=== PATIENT | male | born 1980 | race Caucasian/White ===

== ENCOUNTER 2016-12-22 10:05 | Inpatient (IN) | payer OTHER ==
--- NOTE | 2016-12-22 10:50 | Emergency Department Report ---
Entered by KRISS BENITEZ, acting as scribe for MARAH SINGH PA. Chief Complaint: Weakness Stated Complaint: POSS STROKE Time Seen by Provider: 12/22/16 10:15 - HPI History of Present Illness: Pt c/o weakness and loss of feeling in left arm and leg. Reports difficulty speaking and remembering things. Pt's family believes he had a stroke. Ambulatory with a cane for 2 months. Denies any pain. Denies headache Reports bilateral vision changes. Reports slurred speech. PMHx of HIV Pt reports that he was treated 1 month ago for a insect bite and skin infection. He was prescribed antibiotics and pain medication. - ROS Review of Systems: All systems are negative unless stated in HPI above. - Exam Vital Signs: Vital Signs 12/22/16 10:10 Temperature 97.6 F Pulse Rate 86 Respiratory 18 Rate Blood Pressure 104/65 O2 Sat by Pulse 100 Oximetry Physical Exam: General: well nourished, well developed, and nontoxic in appearance Neurologic: Alert, awake. Not oriented to place or time, but oriented to his name. patient's grandmother is mig tig welder. Unsteady abnormal gait. patient has decreased strength in left upper and lower extremeties. MSE screening note: Focused history and physical exam performed. Due to findings the following was ordered: ED Medical Decision Making - Radiology Data Radiology results: pending - Medical Decision Making Patient seen by provider in triage area. Patient has bloodwork and imaging studies pending. patient will be sent to Main side for further evaluation. ED Disposition for MSE Condition: Stable This documentation as recorded by the scribe,KRISS BENITEZ,accurately reflects the service I personally performed and the decisions made by ,MARAH SINGH PA.
[2016-12-22 10:53] LABS: Basophils % (Auto) 0.1 % (0.0-1.8); Eosinophils % (Auto) 2.4 % (0.0-4.3); Hematocrit 40.7 % (30.3-42.9); Hemoglobin 13.2 gm/dl (10.1-14.3); Mean Corpuscular HGB Conc 33 % (30-34); Mean Corpuscular Hemoglobin 29 pg (28-32); Mean Corpuscular Volume 90 fl (79-97); Platelet Count 250 K/mm3 (140-440); Red Blood Count 4.53 M/mm3 (3.65-5.03); Red Cell Distribution Width 17.1 % (13.2-15.2); White Blood Count 4.3 K/mm3 (4.5-11.0)
--- NOTE | 2016-12-22 11:12 | XRay Report ---
AP CHEST: Generalized weakness; mentation changes. AP view of the chest demonstrates a normal mediastinal and cardiac contour with clear lungs and normal bony and soft tissue structures. IMPRESSION: Normal AP chest.
[2016-12-22 11:22] LABS: Anion Gap 13 mmol/L; BUN/Creatinine Ratio 13.33; Blood Urea Nitrogen 8 mg/dL (9-20); Calcium 7.7 mg/dL (8.4-10.2); Carbon Dioxide 25 mmol/L (22-30); Chloride 101.9 mmol/L (98-107); Glucose 91 mg/dL (75-100); Lactate Dehydrogenase 203 units/L (91-180); Potassium 3.9 mmol/L (3.6-5.0); Sodium 136 mmol/L (137-145)
--- NOTE | 2016-12-22 11:37 | Cat Scan Report ---
CT scan of head without contrast: No previous studies available. History: Weakness. Findings: Ventricles are normal in size and midline in location. Ill-defined focal area of low attenuation at the right temporoparietal region is suggestive of subacute to chronic ischemia. Normal brainstem and cerebellum. Normal sinuses and mastoid air cells. No extra-axial fluid collection. Impression: Subacute to chronic ischemia right temporoparietal region. If clinically indicated an MRI scan may be advised.
[2016-12-22] MEDS ORDERED: NACL 0.9% 1000 ML 1,000 ML IV ONE (18:23)
--- NOTE | 2016-12-22 18:34 | Emergency Department Report ---
ED Neuro Deficit HPI - General Chief Complaint: Weakness Stated Complaint: POSS STROKE Time Seen by Provider: 12/22/16 18:18 Source: patient, family Mode of arrival: Ambulatory Limitations: Language Barrier, Physical Limitation - History of Present Illness Initial Comments: Patient is a 36-year-old male with history of HIV presented today because of left upper and left lower extremity weakness and numbness. Patient states that he thinks he may have had a bug bite on his left neck couple months ago which has not resolved and he has been on multiple courses of antibiotics most recently started on doxycycline. He is also notes her last 2 months that he is progressively slowly developed weakness to his left upper and left lower extremity including numbness. He is able to ambulate but with the help of a cane. He also has a facial droop on the left side. This also complaining about changes in his vision. Denies any fevers or chills. - Related Data Home Medications: Home Medications Medication Instructions Recorded Confirmed Last Taken Darunavir/Cobicistat (Nf) 1 tab PO DAILY 12/22/16 12/22/16 12/22/16 [Prezcobix 800 mg-150 mg (Nf)] Doxycycline [Vibramycin] 100 mg PO Q12HR 12/22/16 12/22/16 12/22/16 Emtricitab/Rilpiviri/Tenof Ala 1 each PO DAILY 12/22/16 12/22/16 12/22/16 [Odefsey Tablet] Allergies/Adverse Reactions: Allergies Allergy/AdvReac Type Severity Reaction Status Date / Time No Known Allergies Allergy Unverified 12/22/16 10:09 ED Review of Systems ROS: Stated complaint: POSS STROKE Other details as noted in HPI Comment: All other systems reviewed and negative Constitutional: denies: chills, fever Eyes: vision change Respiratory: denies: cough Cardiovascular: denies: chest pain Gastrointestinal: denies: nausea, vomiting Genitourinary: denies: dysuria Skin: denies: rash Psychiatric: denies: anxiety ED Past Medical Hx - Past Medical History Previous Medical History?: Yes Additional medical history: Boil - Surgical History Past Surgical History?: No - Social History Smoking Status: Current Every Day Smoker Substance Use Type: Prescribed - Medications Home Medications: Home Medications Medication Instructions Recorded Confirmed Last Taken Type Darunavir/Cobicistat (Nf) 1 tab PO DAILY 12/22/16 12/22/16 12/22/16 History [Prezcobix 800 mg-150 mg (Nf)] Doxycycline [Vibramycin] 100 mg PO Q12HR 12/22/16 12/22/16 12/22/16 History Emtricitab/Rilpiviri/Tenof [place] 1 each PO DAILY 12/22/16 12/22/16 12/22/16 History [Odefsey Tablet] ED Neuro Physical Exam - General Limitations: Language Barrier, Physical Limitation General appearance: alert Suspected Stroke: Yes - Head Head exam: Present: atraumatic - Eye Eye exam: Present: PERRL, EOMI - Neck Neck exam: Present: other (multiple erythematous lesions on the left lower neck , no purulent discharge,) - Respiratory Respiratory exam: Present: normal lung sounds bilaterally. Absent: respiratory distress, wheezes - Cardiovascular Cardiovascular Exam: Present: regular rate, normal rhythm - GI/Abdominal GI/Abdominal exam: Present: soft. Absent: distended, tenderness - Neurological Exam Neurological exam: Present: alert - NIHSS Assessment Interval: Baseline 1a. Level of Consciousness: alert 1b. LOC Questions: answers correctly 1c. LOC Commands: performs tasks correctly 2. Best Gaze: normal 3. Visual: partial hemianopia 4. Facial Palsy: complete paralysis 5b. Motor Arm Right: no drift 5a. Motor Arm Left: some gravity effort 6a. Motor Leg Left: no gravity effort 6b. Motor Leg Right: no drift 7. Limb Ataxia: absent 8. Sensory: normal 9. Best Language: no aphasia 10. Dysarthria: normal 11. Extinction/Inattention: visual/tactile inattention Total Score: 10 Stroke Severity: Moderate Stroke - Psychiatric Psychiatric exam: Present: normal affect - Skin Skin exam: Present: other (multiple lesions over left neck) ED Course Vital Signs 12/22/16 12/22/16 12/22/16 10:10 19:37 20:54 Temperature 97.6 F 98.0 F Pulse Rate 86 73 Respiratory 18 20 20 Rate Blood Pressure 104/65 Blood Pressure 95/63 [Left] O2 Sat by Pulse 100 99 99 Oximetry - Lab Data Result diagrams: 12/22/16 10:43 12/22/16 10:43 Lab Results 12/22/16 12/22/16 12/22/16 Range/Units 10:43 10:43 10:43 WBC 4.3 L (4.5-11.0) K/mm3 RBC 4.53 (3.65-5.03) M/mm3 Hgb 13.2 (10.1-14.3) gm/dl Hct 40.7 (30.3-42.9) % MCV 90 (79-97) fl MCH 29 (28-32) pg MCHC 33 (30-34) % RDW 17.1 H (13.2-15.2) % Plt Count 250 (140-440) K/mm3 Lymph % (Auto) 16.5 (13.4-35.0) % [place] % (Auto) 7.7 H (0.0-7.3) % Eos % (Auto) 2.4 (0.0-4.3) % Baso % (Auto) 0.1 (0.0-1.8) % Lymph # 0.7 L (1.2-5.4) K/mm3 [place] # 0.3 (0.0-0.8) K/mm3 Eos # 0.1 (0.0-0.4) K/mm3 Baso # 0.0 (0.0-0.1) K/mm3 Seg Neutrophils % 73.3 H (40.0-70.0) % Seg Neutrophils # 3.2 (1.8-7.7) K/mm3 PT (12.2-14.9) Sec. INR (0.87-1.13) APTT (24.2-36.6) Sec. Sodium 136 L (137-145) mmol/L Potassium 3.9 (3.6-5.0) mmol/L Chloride 101.9 (98-107) mmol/L Carbon Dioxide 25 (22-30) mmol/L Anion Gap 13 mmol/L BUN 8 L (9-20) mg/dL Creatinine 0.6 L (0.8-1.5) mg/dL Estimated GFR > 60 ml/min BUN/Creatinine Ratio 13.33 % Glucose 91 (75-100) mg/dL Lactic Acid (0.7-2.0) mmol/L Calcium 7.7 L (8.4-10.2) mg/dL Magnesium 1.80 (1.7-2.3) mg/dL Total Bilirubin (0.1-1.2) mg/dL Direct Bilirubin (0-0.2) mg/dL Indirect Bilirubin mg/dL AST (5-40) units/L ALT (7-56) units/L Alkaline Phosphatase (35-129) units/L Lactate Dehydrogenase 203 H (91-180) units/L Troponin T < 0.010 (0.00-0.029) ng/mL Total Protein (6.3-8.2) g/dL Albumin (3.9-5) g/dL Albumin/Globulin Ratio % Urine Color (Yellow) Urine Turbidity (Clear) Urine pH (5.0-7.0) Ur Specific [place] (1.003-1.030) Urine Protein (Negative) mg/dL Urine Glucose (UA) (Negative) mg/dL Urine Ketones (Negative) mg/dL Urine Blood (Negative) Urine Nitrite (Negative) Urine Bilirubin (Negative) Urine Urobilinogen (<2.0) mg/dL Ur Leukocyte Esterase (Negative) Urine WBC (Auto) (0.0-6.0) /HPF Urine RBC (Auto) (0.0-6.0) /HPF U Epithel Cells (Auto) (0-13.0) /HPF Urine Mucus /HPF Urine Opiates Screen Urine Methadone Screen Ur Barbiturates Screen Ur Phencyclidine Scrn Ur Amphetamines Screen U Benzodiazepines Scrn Urine Cocaine Screen U Marijuana (THC) Screen Drugs of Abuse Note Plasma/Serum Alcohol < 0.01 (0-0.07) gm% Blood Type Antibody Screen KAREN Antibody Screen 12/22/16 12/22/16 12/22/16 Range/Units 18:53 18:53 18:53 WBC (4.5-11.0) K/mm3 RBC (3.65-5.03) M/mm3 Hgb (10.1-14.3) gm/dl Hct (30.3-42.9) % MCV (79-97) fl MCH (28-32) pg MCHC (30-34) % RDW (13.2-15.2) % Plt Count (140-440) K/mm3 Lymph % (Auto) (13.4-35.0) % [place] % (Auto) (0.0-7.3) % Eos % (Auto) (0.0-4.3) % Baso % (Auto) (0.0-1.8) % Lymph # (1.2-5.4) K/mm3 [place] # (0.0-0.8) K/mm3 Eos # (0.0-0.4) K/mm3 Baso # (0.0-0.1) K/mm3 Seg Neutrophils % (40.0-70.0) % Seg Neutrophils # (1.8-7.7) K/mm3 PT 13.7 (12.2-14.9) Sec. INR 1.06 (0.87-1.13) APTT 30.5 (24.2-36.6) Sec. Sodium (137-145) mmol/L Potassium (3.6-5.0) mmol/L Chloride (98-107) mmol/L Carbon Dioxide (22-30) mmol/L Anion Gap mmol/L BUN (9-20) mg/dL Creatinine (0.8-1.5) mg/dL Estimated GFR ml/min BUN/Creatinine Ratio % Glucose (75-100) mg/dL Lactic Acid 0.90 (0.7-2.0) mmol/L Calcium (8.4-10.2) mg/dL Magnesium (1.7-2.3) mg/dL Total Bilirubin (0.1-1.2) mg/dL Direct Bilirubin (0-0.2) mg/dL Indirect Bilirubin mg/dL AST (5-40) units/L ALT (7-56) units/L Alkaline Phosphatase (35-129) units/L Lactate Dehydrogenase (91-180) units/L Troponin T (0.00-0.029) ng/mL Total Protein (6.3-8.2) g/dL Albumin (3.9-5) g/dL Albumin/Globulin Ratio % Urine Color (Yellow) Urine Turbidity (Clear) Urine pH (5.0-7.0) Ur Specific [place] (1.003-1.030) Urine Protein (Negative) mg/dL Urine Glucose (UA) (Negative) mg/dL Urine Ketones (Negative) mg/dL Urine Blood (Negative) Urine Nitrite (Negative) Urine Bilirubin (Negative) Urine Urobilinogen (<2.0) mg/dL Ur Leukocyte Esterase (Negative) Urine WBC (Auto) (0.0-6.0) /HPF Urine RBC (Auto) (0.0-6.0) /HPF U Epithel Cells (Auto) (0-13.0) /HPF Urine Mucus /HPF Urine Opiates Screen Urine Methadone Screen Ur Barbiturates Screen Ur Phencyclidine Scrn Ur Amphetamines Screen U Benzodiazepines Scrn Urine Cocaine Screen U Marijuana (THC) Screen Drugs of Abuse Note Plasma/Serum Alcohol (0-0.07) gm% Blood Type A POSITIVE Antibody Screen TNR KAREN Antibody Screen Negative 12/22/16 12/22/16 12/22/16 Range/Units 18:53 18:53 22:39 WBC (4.5-11.0) K/mm3 RBC (3.65-5.03) M/mm3 Hgb (10.1-14.3) gm/dl Hct (30.3-42.9) % MCV (79-97) fl MCH (28-32) pg MCHC (30-34) % RDW (13.2-15.2) % Plt Count (140-440) K/mm3 Lymph % (Auto) (13.4-35.0) % [place] % (Auto) (0.0-7.3) % Eos % (Auto) (0.0-4.3) % Baso % (Auto) (0.0-1.8) % Lymph # (1.2-5.4) K/mm3 [place] # (0.0-0.8) K/mm3 Eos # (0.0-0.4) K/mm3 Baso # (0.0-0.1) K/mm3 Seg Neutrophils % (40.0-70.0) % Seg Neutrophils # (1.8-7.7) K/mm3 PT (12.2-14.9) Sec. INR (0.87-1.13) APTT (24.2-36.6) Sec. Sodium (137-145) mmol/L Potassium (3.6-5.0) mmol/L Chloride (98-107) mmol/L Carbon Dioxide (22-30) mmol/L Anion Gap mmol/L BUN (9-20) mg/dL Creatinine (0.8-1.5) mg/dL Estimated GFR ml/min BUN/Creatinine Ratio % Glucose (75-100) mg/dL Lactic Acid (0.7-2.0) mmol/L Calcium (8.4-10.2) mg/dL Magnesium (1.7-2.3) mg/dL Total Bilirubin 0.20 (0.1-1.2) mg/dL Direct Bilirubin < 0.2 (0-0.2) mg/dL Indirect Bilirubin 0.0 mg/dL AST 33 (5-40) units/L ALT 33 (7-56) units/L Alkaline Phosphatase 91 (35-129) units/L Lactate Dehydrogenase (91-180) units/L Troponin T < 0.010 (0.00-0.029) ng/mL Total Protein 4.4 L (6.3-8.2) g/dL Albumin 1.9 L (3.9-5) g/dL Albumin/Globulin Ratio 0.8 % Urine Color Yellow (Yellow) Urine Turbidity Clear (Clear) Urine pH 6.0 (5.0-7.0) Ur Specific [place] 1.020 (1.003-1.030) Urine Protein <15 mg/dl (Negative) mg/dL Urine Glucose (UA) Neg (Negative) mg/dL Urine Ketones Neg (Negative) mg/dL Urine Blood Neg (Negative) Urine Nitrite Neg (Negative) Urine Bilirubin Neg (Negative) Urine Urobilinogen < 2.0 (<2.0) mg/dL Ur Leukocyte Esterase Neg (Negative) Urine WBC (Auto) 2.0 (0.0-6.0) /HPF Urine RBC (Auto) 1.0 (0.0-6.0) /HPF U Epithel Cells (Auto) < 1.0 (0-13.0) /HPF Urine Mucus Few /HPF Urine Opiates Screen Urine Methadone Screen Ur Barbiturates Screen Ur Phencyclidine Scrn Ur Amphetamines Screen U Benzodiazepines Scrn Urine Cocaine Screen U Marijuana (THC) Screen Drugs of Abuse Note Plasma/Serum Alcohol (0-0.07) gm% Blood Type Antibody Screen KAREN Antibody Screen 12/22/16 Range/Units 22:39 WBC (4.5-11.0) K/mm3 RBC (3.65-5.03) M/mm3 Hgb (10.1-14.3) gm/dl Hct (30.3-42.9) % MCV (79-97) fl MCH (28-32) pg MCHC (30-34) % RDW (13.2-15.2) % Plt Count (140-440) K/mm3 Lymph % (Auto) (13.4-35.0) % [place] % (Auto) (0.0-7.3) % Eos % (Auto) (0.0-4.3) % Baso % (Auto) (0.0-1.8) % Lymph # (1.2-5.4) K/mm3 [place] # (0.0-0.8) K/mm3 Eos # (0.0-0.4) K/mm3 Baso # (0.0-0.1) K/mm3 Seg Neutrophils % (40.0-70.0) % Seg Neutrophils # (1.8-7.7) K/mm3 PT (12.2-14.9) Sec. INR (0.87-1.13) APTT (24.2-36.6) Sec. Sodium (137-145) mmol/L Potassium (3.6-5.0) mmol/L Chloride (98-107) mmol/L Carbon Dioxide (22-30) mmol/L Anion Gap mmol/L BUN (9-20) mg/dL Creatinine (0.8-1.5) mg/dL Estimated GFR ml/min BUN/Creatinine Ratio % Glucose (75-100) mg/dL Lactic Acid (0.7-2.0) mmol/L Calcium (8.4-10.2) mg/dL Magnesium (1.7-2.3) mg/dL Total Bilirubin (0.1-1.2) mg/dL Direct Bilirubin (0-0.2) mg/dL Indirect Bilirubin mg/dL AST (5-40) units/L ALT (7-56) units/L Alkaline Phosphatase (35-129) units/L Lactate Dehydrogenase (91-180) units/L Troponin T (0.00-0.029) ng/mL Total Protein (6.3-8.2) g/dL Albumin (3.9-5) g/dL Albumin/Globulin Ratio % Urine Color (Yellow) Urine Turbidity (Clear) Urine pH (5.0-7.0) Ur Specific [place] (1.003-1.030) Urine Protein (Negative) mg/dL Urine Glucose (UA) (Negative) mg/dL Urine Ketones (Negative) mg/dL Urine Blood (Negative) Urine Nitrite (Negative) Urine Bilirubin (Negative) Urine Urobilinogen (<2.0) mg/dL Ur Leukocyte Esterase (Negative) Urine WBC (Auto) (0.0-6.0) /HPF Urine RBC (Auto) (0.0-6.0) /HPF U Epithel Cells (Auto) (0-13.0) /HPF Urine Mucus /HPF Urine Opiates Screen Presumptive negative Urine Methadone Screen Presumptive negative Ur Barbiturates Screen Presumptive negative Ur Phencyclidine Scrn Presumptive negative Ur Amphetamines Screen Presumptive negative U Benzodiazepines Scrn Presumptive negative Urine Cocaine Screen Presumptive negative U Marijuana (THC) Screen Presumptive negative Drugs of Abuse Note Disclamer Plasma/Serum Alcohol (0-0.07) gm% Blood Type Antibody Screen KAREN Antibody Screen - Medical Decision Making IV, labs, CT head CT head shows cva, not acute, does not meet criteria for thrombolytics CTA head and neck also initially ordered but CT scanner able to do CTA is down will admit at this time for cva Patient is also hiv positive but states he has been consistently taking his HAART medication which he has with him. aspirin ordered will admit for cva Critical care attestation.: If time is entered above; I have spent that time in minutes in the direct care of this critically ill patient, excluding procedure time. ED Disposition Clinical Impression: CVA (cerebral vascular accident) Qualifiers: CVA mechanism: unspecified Qualified Code(s): I63.9 - Cerebral infarction, unspecified Disposition: OP ADMITTED IP TO THIS HOSP Is pt being admited?: Yes Does the pt Need Aspirin: No Condition: Serious
[2016-12-22 19:30] LABS: INR 1.06 (0.87-1.13)
[2016-12-22 19:31] LABS: Partial Thromboplastin Time 30.5 Sec. (24.2-36.6)
[2016-12-22 20:01] LABS: Alanine Aminotransferase 33 units/L (7-56); Albumin 1.9 g/dL (3.9-5); Albumin/Globulin Ratio 0.8 %; Alkaline Phosphatase 91 units/L (35-129); Total Protein 4.4 g/dL (6.3-8.2)
[2016-12-22 20:27] LABS: Bilirubin,Direct < 0.2 mg/dL (0-0.2)
[2016-12-22] MEDS ORDERED: BABY ASPIRIN PO ONE (20:42)
--- NOTE | 2016-12-22 21:35 | History and Physical Report ---
History of Present Illness Chief complaint: I feel weak History of present illness: 36 YO Male with HIV, Nicotine Dependence presents to ED for evaluation. Pt states that he has been experiencing weakness and numbness to his left side. Pt symptoms started about 2 month ago and have gotten progressively worse over the past week. Patient denies fever, chills, CP, palpitations, NVD, unintentional weight loss, night sweats, BRBPR, Hemoptysis, vertigo, trauma, or recent ill contacts. Past History Past Medical History: other (HIV, Nicotine Dependence) Past Surgical History: No surgical history, Other (reviewed) Social history: single, smoking. denies: alcohol abuse, prescription drug abuse , IV drug use Family history: hypertension Medications and Allergies Allergies Allergy/AdvReac Type Severity Reaction Status Date / Time No Known Allergies Allergy Unverified 12/22/16 10:09 Home Medications Medication Instructions Recorded Confirmed Last Taken Type Darunavir/Cobicistat (Nf) 1 tab PO DAILY 12/22/16 12/22/16 12/22/16 History [Prezcobix 800 mg-150 mg (Nf)] Doxycycline [Vibramycin] 100 mg PO Q12HR 12/22/16 12/22/16 12/22/16 History Emtricitab/Rilpiviri/Tenof Ala 1 each PO DAILY 12/22/16 12/22/16 12/22/16 History [Odefsey Tablet] Review of Systems All systems: negative Constitutional: weakness Exam - Constitutional Vitals: Temp Pulse Resp BP Pulse Ox 98.0 F 73 20 95/63 99 12/22/16 20:54 12/22/16 20:54 12/22/16 20:54 12/22/16 20:54 12/22/16 20:54 General appearance: Present: no acute distress, well-nourished - EENT Eyes: Present: PERRL ENT: hearing intact, clear oral mucosa - Neck Neck: Present: supple, normal ROM - Respiratory Respiratory effort: normal Respiratory: bilateral: CTA - Cardiovascular Heart Sounds: Present: S1 & S2. Absent: rub, click - Extremities Extremities: pulses symmetrical, No edema Peripheral Pulses: within normal limits - Abdominal General gastrointestinal: Present: soft, non-tender, non-distended, normal bowel sounds Male genitourinary: Present: normal - Integumentary Integumentary: Present: clear, warm, dry - Musculoskeletal Musculoskeletal: left sided weakness - Psychiatric Psychiatric: appropriate mood/affect, intact judgment & insight - Neurologic Neurologic: CNII-XII intact, moves all extremities Results - Labs CBC & Chem 7: 12/22/16 10:43 12/22/16 10:43 Labs: Abnormal lab results 12/22/16 12/22/16 12/22/16 Range/Units 10:43 10:43 18:53 WBC 4.3 L (4.5-11.0) K/mm3 RDW 17.1 H (13.2-15.2) % [place] % (Auto) 7.7 H (0.0-7.3) % Lymph # 0.7 L (1.2-5.4) K/mm3 Seg Neutrophils % 73.3 H (40.0-70.0) % Sodium 136 L (137-145) mmol/L BUN 8 L (9-20) mg/dL Creatinine 0.6 L (0.8-1.5) mg/dL Calcium 7.7 L (8.4-10.2) mg/dL Lactate Dehydrogenase 203 H (91-180) units/L Total Protein 4.4 L (6.3-8.2) g/dL Albumin 1.9 L (3.9-5) g/dL Assessment and Plan - Patient Problems (1) CVA (cerebral vascular accident) Current Visit: Yes Status: Acute Qualifiers: CVA mechanism: unspecified Precerebral and cerebral artery: P Laterality of affected vessel: L Qualified Code(s): I63.9 - Cerebral infarction, unspecified Plan to address problem: Stroke Protocol: MRI/MRA, Carotid Doppler, Echo, antiplatelet therapy, PT/OT/ Speech Therapy (2) HIV (human immunodeficiency virus infection) Current Visit: Yes Status: Acute Plan to address problem: continue current medication. (3) Nicotine dependence Current Visit: Yes Status: Acute Qualifiers: Nicotine product type: N Substance use status: S Plan to address problem: Pt counseled, Pt refused to pick quit date (4) DVT prophylaxis Current Visit: Yes Status: Acute
--- NOTE | 2016-12-22 21:35 | Admit Criteria Form ---
Admission Criteria Documentation: STROKE: ISCHEMIC Clinical Indications for Admission to Inpatient Care (Place 'X' for any and all applicable criteria): Admission is indicated for ANY ONE of the following(1)(2)(3)(4): [ X]I. Acute stroke Extended stay beyond goal length of stay may be needed for(1)(2) [ ]a) Major deficit or clinical deterioration [ ]b) Hospital-acquired infection (eg, urinary tract infection, pneumonia) [ ]c) Embolic cause of stroke [ ]d) Venous thromboembolism(9) [ ]e) Seizures [ ]f) Bleeding (eg, cerebral) [ ]g) Increased intracranial pressure [ ]h) Comorbidities [ ]i) Surgical intervention The original [facility] content created by [employer] has been revised. The portions of the content which have been revised are identified through the use of italic text or in bold, and [facility] has neither reviewed nor approved the modified material. All other unmodified content is copyright [facility]. Please see references footnoted in the original [facility] edition 2016 Admission Criteria Met: Yes
[2016-12-22] MEDS ORDERED: TYLENOL PO PRN (22:54)
[2016-12-22] MEDS ORDERED: PHENERGAN PR PRN (22:54)
[2016-12-22] MEDS ORDERED: DUONEB 0.5 MG-3 MG/3 ML SOLN IH PRN (22:54)
[2016-12-22] MEDS ORDERED: ZOFRAN IV PRN (22:54)
[2016-12-22] MEDS ORDERED: SODIUM CHLORIDE FLUSH SYRINGE 10 ML IV PRN (22:54)
[2016-12-22] MEDS ORDERED: REGLAN PO PRN (22:54)
[2016-12-22] MEDS ORDERED: DULCOLAX PR PRN (22:54)
[2016-12-22] MEDS ORDERED: MILK OF MAGNESIA PO PRN (22:54)
[2016-12-22 23:02] LABS: Urine Drugs of Abuse Note Disclamer
[2016-12-22 23:17] LABS: Bilirubin,Urine NEG (Negative); Blood,Urine NEG (Negative); Ketones,Urine NEG (Negative); Leukocyte Esterase,Urine NEG (Negative); Mucus,Urine FEW /HPF; Nitrite,Urine NEG (Negative); Protein,Urine <15 mg/dL mg/dL (Negative); Urobilinogen,Urine < 2.0 mg/dL (<2.0)
[2016-12-22] MEDS ORDERED: PROVENTIL IH PRN (23:25)
[2016-12-23] MEDS: VIBRAMYCIN PO SCH ×2 (10:40→22:21)
[2016-12-23] MEDS: PLAVIX PO SCH (10:40)
--- NOTE | 2016-12-23 20:13 | Progress Note ---
Assessment and Plan Assessment and plan: 36 years old male with HIV nicotine dependence admitted for left-sided weakness that worsened over the last [address] head showing subacute to chronic ischemia right temporoparietal area Echocardiogram with normal LV function and no intracardiac shunt Carotid Doppler and brain MRI pending Started on antiplatelet therapy and statin PT/OT/ST 2. HIV Continue antiretrovirals 3. Nicotine dependence Counseled regarding importance of quitting smoking but not willing to do it at this time 4. DVT prophylaxis History Interval history: seems confused, but answering appropriately simple questions c/o weakness Hospitalist Physical - Constitutional Vitals: Temp Pulse Resp BP Pulse Ox 98.4 F 75 18 90/54 96 12/23/16 17:14 12/23/16 17:14 12/23/16 17:14 12/23/16 17:14 12/23/16 17:14 General appearance: Present: no acute distress, other (thin, chronically ill- appearing) - EENT Eyes: Present: PERRL, EOM intact. Absent: scleral icterus, conjunctival injection - Neck Neck: Present: supple. Absent: masses or JVD, carotid bruits - Respiratory Respiratory effort: normal Respiratory: bilateral: CTA, negative: rales, rhonchi, wheezing - Cardiovascular Rhythm: regular Heart Sounds: Present: S1 & S2. Absent: systolic murmur - Extremities Extremities: no ischemia - Abdominal General gastrointestinal: soft, non-tender, non-distended, normal bowel sounds - Psychiatric Psychiatric: no intact judgment & insight, no memory intact - Neurologic Neurologic: other (left hemiparesis, L hemineglect) Results - Labs CBC & Chem 7: 12/22/16 10:43 12/22/16 10:43 Labs: Laboratory Last Values WBC 4.3 K/mm3 (4.5-11.0) L 12/22/16 10:43 RBC 4.53 M/mm3 (3.65-5.03) 12/22/16 10:43 Hgb 13.2 gm/dl (10.1-14.3) 12/22/16 10:43 Hct 40.7 % (30.3-42.9) 12/22/16 10:43 MCV 90 fl (79-97) 12/22/16 10:43 MCH 29 pg (28-32) 12/22/16 10:43 MCHC 33 % (30-34) 12/22/16 10:43 RDW 17.1 % (13.2-15.2) H 12/22/16 10:43 Plt Count 250 K/mm3 (140-440) 12/22/16 10:43 Lymph % (Auto) 16.5 % (13.4-35.0) 12/22/16 10:43 [place] % (Auto) 7.7 % (0.0-7.3) H 12/22/16 10:43 Eos % (Auto) 2.4 % (0.0-4.3) 12/22/16 10:43 Baso % (Auto) 0.1 % (0.0-1.8) 12/22/16 10:43 Lymph # 0.7 K/mm3 (1.2-5.4) L 12/22/16 10:43 [place] # 0.3 K/mm3 (0.0-0.8) 12/22/16 10:43 Eos # 0.1 K/mm3 (0.0-0.4) 12/22/16 10:43 Baso # 0.0 K/mm3 (0.0-0.1) 12/22/16 10:43 Seg Neutrophils % 73.3 % (40.0-70.0) H 12/22/16 10:43 Seg Neutrophils # 3.2 K/mm3 (1.8-7.7) 12/22/16 10:43 PT 13.7 Sec. (12.2-14.9) 12/22/16 18:53 INR 1.06 (0.87-1.13) 12/22/16 18:53 APTT 30.5 Sec. (24.2-36.6) 12/22/16 18:53 Sodium 136 mmol/L (137-145) L 12/22/16 10:43 Potassium 3.9 mmol/L (3.6-5.0) 12/22/16 10:43 Chloride 101.9 mmol/L (98-107) 12/22/16 10:43 Carbon Dioxide 25 mmol/L (22-30) 12/22/16 10:43 Anion Gap 13 mmol/L 12/22/16 10:43 BUN 8 mg/dL (9-20) L 12/22/16 10:43 Creatinine 0.6 mg/dL (0.8-1.5) L 12/22/16 10:43 Estimated GFR > 60 ml/min 12/22/16 10:43 BUN/Creatinine Ratio 13.33 % 12/22/16 10:43 Glucose 91 mg/dL (75-100) 12/22/16 10:43 Lactic Acid 0.90 mmol/L (0.7-2.0) 12/22/16 18:53 Calcium 7.7 mg/dL (8.4-10.2) L 12/22/16 10:43 Magnesium 1.80 mg/dL (1.7-2.3) 12/22/16 10:43 Total Bilirubin 0.20 mg/dL (0.1-1.2) 12/22/16 18:53 Direct Bilirubin < 0.2 mg/dL (0-0.2) 12/22/16 18:53 Indirect Bilirubin 0.0 mg/dL 12/22/16 18:53 AST 33 units/L (5-40) 12/22/16 18:53 ALT 33 units/L (7-56) 12/22/16 18:53 Alkaline Phosphatase 91 units/L (35-129) 12/22/16 18:53 Lactate Dehydrogenase 203 units/L (91-180) H 12/22/16 10:43 Troponin T < 0.010 ng/mL (0.00-0.029) 12/22/16 18:53 Total Protein 4.4 g/dL (6.3-8.2) L 12/22/16 18:53 Albumin 1.9 g/dL (3.9-5) L 12/22/16 18:53 Albumin/Globulin Ratio 0.8 % 12/22/16 18:53 Triglycerides 70 mg/dL (2-149) 12/23/16 07:30 Cholesterol 91 mg/dL (50-199) 12/23/16 07:30 LDL Cholesterol Direct 57 mg/dL (50-130) 12/23/16 07:30 HDL Cholesterol 20 mg/dL (40-59) L 12/23/16 07:30 Cholesterol/HDL Ratio 4.55 % 12/23/16 07:30 Urine Color Yellow (Yellow) 12/22/16 22:39 Urine Turbidity Clear (Clear) 12/22/16 22:39 Urine pH 6.0 (5.0-7.0) 12/22/16 22:39 Ur Specific [place] 1.020 (1.003-1.030) 12/22/16 22:39 Urine Protein <15 mg/dl mg/dL (Negative) 12/22/16 22:39 Urine Glucose (UA) Neg mg/dL (Negative) 12/22/16 22:39 Urine Ketones Neg mg/dL (Negative) 12/22/16 22:39 Urine Blood Neg (Negative) 12/22/16 22:39 Urine Nitrite Neg (Negative) 12/22/16 22:39 Urine Bilirubin Neg (Negative) 12/22/16 22:39 Urine Urobilinogen < 2.0 mg/dL (<2.0) 12/22/16 22:39 Ur Leukocyte Esterase Neg (Negative) 12/22/16 22:39 Urine WBC (Auto) 2.0 /HPF (0.0-6.0) 12/22/16 22:39 Urine RBC (Auto) 1.0 /HPF (0.0-6.0) 12/22/16 22:39 U Epithel Cells (Auto) < 1.0 /HPF (0-13.0) 12/22/16 22:39 Urine Mucus Few /HPF 12/22/16 22:39 Urine Opiates Screen Presumptive negative 12/22/16 22:39 Urine Methadone Screen Presumptive negative 12/22/16 22:39 Ur Barbiturates Screen Presumptive negative 12/22/16 22:39 Ur Phencyclidine Scrn Presumptive negative 12/22/16 22:39 Ur Amphetamines Screen Presumptive negative 12/22/16 22:39 U Benzodiazepines Scrn Presumptive negative 12/22/16 22:39 Urine Cocaine Screen Presumptive negative 12/22/16 22:39 U Marijuana (THC) Screen Presumptive negative 12/22/16 22:39 Drugs of Abuse Note Disclamer 12/22/16 22:39 Plasma/Serum Alcohol < 0.01 gm% (0-0.07) 12/22/16 10:43 Blood Type A POSITIVE 12/22/16 18:53 Antibody Screen TNR 12/22/16 18:53 KAREN Antibody Screen Negative 12/22/16 18:53 - Imaging and Cardiology CT Scan - head: report reviewed Imaging and Cardiology: ECHO Carotd doppler
[2016-12-23] MEDS ORDERED: NACL 0.9% 500 ML 500 ML IV ONE ×2 (20:33→22:12)
[2016-12-23] MEDS: DARUNAVIR PO SCH (22:22)
[2016-12-23] MEDS: COBICISTAT PO SCH (22:22)
[2016-12-23] MEDS: NON-FORMULARY (Emtricitab/Rilpiviri/Tenof Ala [Odefsey Tablet] 1 EACH) PO SCH (22:23)
[2016-12-23] MEDS: ZOCOR PO SCH (22:25)
[2016-12-24] MEDS: PLAVIX PO SCH ×2 (10:00→10:36)
[2016-12-24] MEDS: VIBRAMYCIN PO SCH ×2 (10:36→22:33)
--- NOTE | 2016-12-24 12:47 | Magnetic Resonance Report ---
MRA HEAD WITHOUT CONTRAST HISTORY: Stroke. [id number] imaging with MIP reformations of the [place] is submitted. The arteries appear widely patent and free of hemodynamically significant stenosis or aneurysm dilatation. Both vertebral arteries are identified appearing patent as well. IMPRESSION: Unremarkable MRA head.
--- NOTE | 2016-12-24 21:23 | Progress Note ---
Assessment and Plan Assessment and plan: 36 years old male with HIV nicotine dependence admitted for left-sided weakness that worsened over the last [address] head showing subacute to chronic ischemia right temporoparietal area Echocardiogram with normal LV function and no intracardiac shunt Carotid Doppler with <50% stenoses bilaterally Brain MRI pending Started on antiplatelet therapy and statin PT/OT/ST 2. HIV Continue antiretrovirals 3. Nicotine dependence Counseled regarding importance of quitting smoking but not willing to do it at this time 4. DVT prophylaxis History Interval history: no events overnight, continues to have L neglect, slow thinking Hospitalist Physical - Constitutional Vitals: Temp Pulse Resp BP Pulse Ox 98.2 F 74 16 110/70 98 12/24/16 10:03 12/24/16 18:26 12/24/16 10:03 12/24/16 18:26 12/24/16 10:03 General appearance: Present: no acute distress, other (chronically ill-appearing ) - EENT Eyes: Present: PERRL, EOM intact. Absent: scleral icterus, conjunctival injection - Neck Neck: Present: supple, normal ROM. Absent: masses or JVD - Respiratory Respiratory effort: normal Respiratory: bilateral: CTA, negative: rhonchi, wheezing - Cardiovascular Rhythm: regular Heart Sounds: Present: S1 & S2. Absent: systolic murmur - Extremities Extremities: no ischemia - Abdominal General gastrointestinal: soft, non-tender, non-distended, normal bowel sounds - Psychiatric Psychiatric: no intact judgment & insight, no memory intact, other (slightly confused) - Neurologic Neurologic: other (left-sided hemiparesis, left drew-neglect) Results - Labs CBC & Chem 7: 12/22/16 10:43 12/22/16 10:43 Labs: Laboratory Last Values WBC 4.3 K/mm3 (4.5-11.0) L 12/22/16 10:43 RBC 4.53 M/mm3 (3.65-5.03) 12/22/16 10:43 Hgb 13.2 gm/dl (10.1-14.3) 12/22/16 10:43 Hct 40.7 % (30.3-42.9) 12/22/16 10:43 MCV 90 fl (79-97) 12/22/16 10:43 MCH 29 pg (28-32) 12/22/16 10:43 MCHC 33 % (30-34) 12/22/16 10:43 RDW 17.1 % (13.2-15.2) H 12/22/16 10:43 Plt Count 250 K/mm3 (140-440) 12/22/16 10:43 Lymph % (Auto) 16.5 % (13.4-35.0) 12/22/16 10:43 [place] % (Auto) 7.7 % (0.0-7.3) H 12/22/16 10:43 Eos % (Auto) 2.4 % (0.0-4.3) 12/22/16 10:43 Baso % (Auto) 0.1 % (0.0-1.8) 12/22/16 10:43 Lymph # 0.7 K/mm3 (1.2-5.4) L 12/22/16 10:43 [place] # 0.3 K/mm3 (0.0-0.8) 12/22/16 10:43 Eos # 0.1 K/mm3 (0.0-0.4) 12/22/16 10:43 Baso # 0.0 K/mm3 (0.0-0.1) 12/22/16 10:43 Seg Neutrophils % 73.3 % (40.0-70.0) H 12/22/16 10:43 Seg Neutrophils # 3.2 K/mm3 (1.8-7.7) 12/22/16 10:43 PT 13.7 Sec. (12.2-14.9) 12/22/16 18:53 INR 1.06 (0.87-1.13) 12/22/16 18:53 APTT 30.5 Sec. (24.2-36.6) 12/22/16 18:53 Sodium 136 mmol/L (137-145) L 12/22/16 10:43 Potassium 3.9 mmol/L (3.6-5.0) 12/22/16 10:43 Chloride 101.9 mmol/L (98-107) 12/22/16 10:43 Carbon Dioxide 25 mmol/L (22-30) 12/22/16 10:43 Anion Gap 13 mmol/L 12/22/16 10:43 BUN 8 mg/dL (9-20) L 12/22/16 10:43 Creatinine 0.6 mg/dL (0.8-1.5) L 12/22/16 10:43 Estimated GFR > 60 ml/min 12/22/16 10:43 BUN/Creatinine Ratio 13.33 % 12/22/16 10:43 Glucose 91 mg/dL (75-100) 12/22/16 10:43 POC Glucose 130 (70-105) H 12/23/16 21:35 Lactic Acid 0.90 mmol/L (0.7-2.0) 12/22/16 18:53 Calcium 7.7 mg/dL (8.4-10.2) L 12/22/16 10:43 Magnesium 1.80 mg/dL (1.7-2.3) 12/22/16 10:43 Total Bilirubin 0.20 mg/dL (0.1-1.2) 12/22/16 18:53 Direct Bilirubin < 0.2 mg/dL (0-0.2) 12/22/16 18:53 Indirect Bilirubin 0.0 mg/dL 12/22/16 18:53 AST 33 units/L (5-40) 12/22/16 18:53 ALT 33 units/L (7-56) 12/22/16 18:53 Alkaline Phosphatase 91 units/L (35-129) 12/22/16 18:53 Lactate Dehydrogenase 203 units/L (91-180) H 12/22/16 10:43 Troponin T < 0.010 ng/mL (0.00-0.029) 12/22/16 18:53 Total Protein 4.4 g/dL (6.3-8.2) L 12/22/16 18:53 Albumin 1.9 g/dL (3.9-5) L 12/22/16 18:53 Albumin/Globulin Ratio 0.8 % 12/22/16 18:53 Triglycerides 70 mg/dL (2-149) 12/23/16 07:30 Cholesterol 91 mg/dL (50-199) 12/23/16 07:30 LDL Cholesterol Direct 57 mg/dL (50-130) 12/23/16 07:30 HDL Cholesterol 20 mg/dL (40-59) L 12/23/16 07:30 Cholesterol/HDL Ratio 4.55 % 12/23/16 07:30 Urine Color Yellow (Yellow) 12/22/16 22:39 Urine Turbidity Clear (Clear) 12/22/16 22:39 Urine pH 6.0 (5.0-7.0) 12/22/16 22:39 Ur Specific [place] 1.020 (1.003-1.030) 12/22/16 22:39 Urine Protein <15 mg/dl mg/dL (Negative) 12/22/16 22:39 Urine Glucose (UA) Neg mg/dL (Negative) 12/22/16 22:39 Urine Ketones Neg mg/dL (Negative) 12/22/16 22:39 Urine Blood Neg (Negative) 12/22/16 22:39 Urine Nitrite Neg (Negative) 12/22/16 22:39 Urine Bilirubin Neg (Negative) 12/22/16 22:39 Urine Urobilinogen < 2.0 mg/dL (<2.0) 12/22/16 22:39 Ur Leukocyte Esterase Neg (Negative) 12/22/16 22:39 Urine WBC (Auto) 2.0 /HPF (0.0-6.0) 12/22/16 22:39 Urine RBC (Auto) 1.0 /HPF (0.0-6.0) 12/22/16 22:39 U Epithel Cells (Auto) < 1.0 /HPF (0-13.0) 12/22/16 22:39 Urine Mucus Few /HPF 12/22/16 22:39 Urine Opiates Screen Presumptive negative 12/22/16 22:39 Urine Methadone Screen Presumptive negative 12/22/16 22:39 Ur Barbiturates Screen Presumptive negative 12/22/16 22:39 Ur Phencyclidine Scrn Presumptive negative 12/22/16 22:39 Ur Amphetamines Screen Presumptive negative 12/22/16 22:39 U Benzodiazepines Scrn Presumptive negative 12/22/16 22:39 Urine Cocaine Screen Presumptive negative 12/22/16 22:39 U Marijuana (THC) Screen Presumptive negative 12/22/16 22:39 Drugs of Abuse Note Disclamer 12/22/16 22:39 Plasma/Serum Alcohol < 0.01 gm% (0-0.07) 12/22/16 10:43 Blood Type A POSITIVE 12/22/16 18:53 Antibody Screen TNR 12/22/16 18:53 KAREN Antibody Screen Negative 12/22/16 18:53
[2016-12-24] MEDS: ZOCOR PO SCH (22:33)
[2016-12-24] MEDS: NON-FORMULARY (Emtricitab/Rilpiviri/Tenof Ala [Odefsey Tablet] 1 EACH) PO SCH (22:33)
[2016-12-24] MEDS: DARUNAVIR PO SCH (22:33)
[2016-12-24] MEDS: COBICISTAT PO SCH (22:33)
--- NOTE | 2016-12-25 08:28 | Vascular Lab Report ---
CAROTID DUPLEX STUDY: RIGHT PSVEDV CCA PROX:47840 CCA DIST: 9613 ICA PROX: 5617 ICA MID: 7427 ICA DIST: 7126 ECA: 87 9 VERT: 44 11 LEFT PSVEDV CCA PROX:58183 CCA DIST:47615 ICA PROX: 8824 ICA MID: 7431 ICA DIST: 8034 ECA: 8413 VERT: 56 15 REASON FOR EXAM: Stroke. COMMENTS ON THE RIGHT: Doppler frequency analysis is consistent with 16 to 49 percent diameter reduction of the internal carotid artery. Minimal amount of plaque is seen. The common carotid artery is patent. The external carotid artery is patent. The vertebral artery has antegrade flow. COMMENTS ON THE LEFT: Doppler frequency analysis is consistent with 16 to 49 percent diameter reduction of the internal carotid artery. Minimal amount of plaque is seen. The common carotid artery is patent. The external carotid artery is patent. The vertebral artery has antegrade flow. IMPRESSION: Less than 50% diameter reduction in the internal carotid arteries bilaterally. Consider repeat carotid artery duplex in 12 months.
[2016-12-25] MEDS: VIBRAMYCIN PO SCH ×2 (12:07→21:38)
[2016-12-25] MEDS: PLAVIX PO SCH (12:08)
--- NOTE | 2016-12-25 13:07 | Magnetic Resonance Report ---
MRI of the brain with and without contrast. Please note that this examination was performed on 2 different days. History: Stroke. Procedure: Routine brain protocol with and without contrast. Findings: A prominent area of hypo-intense T1 and hyperintense T2 signal is seen in the white matter of the right occipital and posterior right parietal lobe as well as the superior aspect of the right temporal lobe. This same signal abnormality extends into the splenium of the corpus callosum and into the white matter of the left occipital lobe. After contrast, there is no enhancement of any portion of these lesions. There is no significant mass effect. No restricted diffusion is seen. T2 shine through is seen on the ADC map image sequence. The posterior fossa is normal. There are no extra-axial collections. The ventricles are normal in size and contour. The pituitary gland is normal. The visualized extracranial structures are unremarkable. Impression: 1. Extensive white matter signal abnormalities involving the right temporal, parietal, and occipital lobes as well as the splenium of corpus callosum and left occipital lobe. Differential considerations include a nonenhancing, avascular neoplasm/glioma, tumefactive MS, progressive multifocal leukoencephalopathy. An infectious etiology and lymphoma would be expected to be more vascular and thus felt to be very unlikely.
--- NOTE | 2016-12-25 14:55 | Progress Note ---
Assessment and Plan Assessment and plan: 36 years old male with HIV nicotine dependence admitted for left-sided weakness that worsened over the last 2 months 1. CVA ? CT head showing subacute to chronic ischemia right temporoparietal area Echocardiogram with normal LV function and no intracardiac shunt Carotid Doppler with <50% stenoses bilaterally Started on antiplatelet therapy and statin PT/OT/ST Brain MRI results available today and CVA diagnosis questioned; showing extensive white matter abnormalities involving right temporal, parietal and occipital lobes suspicious of neoplasm/lymphoma/progressive multifocal leukoencephalopathy. We'll consult ID and Heme Onco 2. HIV Continue antiretrovirals 3. Nicotine dependence Counseled regarding importance of quitting smoking but not willing to do it at this time 4. DVT prophylaxis 5. Case management consulted for possible placement as patient likely unable to care for himself History Interval history: no events or new complaints; continues to have L neglect, slow thinking no family member present Hospitalist Physical - Constitutional Vitals: Temp Pulse Resp BP Pulse Ox 98.4 F 82 18 96/64 98 12/25/16 09:55 12/25/16 09:55 12/25/16 09:55 12/25/16 09:55 12/25/16 09:55 General appearance: Present: no acute distress, other (chronically ill-appearing ) - EENT Eyes: Present: PERRL, EOM intact. Absent: scleral icterus, conjunctival injection - Neck Neck: Present: supple, normal ROM. Absent: masses or JVD - Respiratory Respiratory effort: normal Respiratory: bilateral: CTA, negative: rhonchi, wheezing - Cardiovascular Rhythm: regular Heart Sounds: Present: S1 & S2. Absent: systolic murmur - Extremities Extremities: no ischemia - Abdominal General gastrointestinal: soft, non-tender, non-distended, normal bowel sounds - Psychiatric Psychiatric: no intact judgment & insight, no memory intact, other (confused) - Neurologic Neurologic: other (left hemiparesis, left drew-neglect) Results - Labs CBC & Chem 7: 12/22/16 10:43 12/22/16 10:43 Labs: Laboratory Last Values WBC 4.3 K/mm3 (4.5-11.0) L 12/22/16 10:43 RBC 4.53 M/mm3 (3.65-5.03) 12/22/16 10:43 Hgb 13.2 gm/dl (10.1-14.3) 12/22/16 10:43 Hct 40.7 % (30.3-42.9) 12/22/16 10:43 MCV 90 fl (79-97) 12/22/16 10:43 MCH 29 pg (28-32) 12/22/16 10:43 MCHC 33 % (30-34) 12/22/16 10:43 RDW 17.1 % (13.2-15.2) H 12/22/16 10:43 Plt Count 250 K/mm3 (140-440) 12/22/16 10:43 Lymph % (Auto) 16.5 % (13.4-35.0) 12/22/16 10:43 [place] % (Auto) 7.7 % (0.0-7.3) H 12/22/16 10:43 Eos % (Auto) 2.4 % (0.0-4.3) 12/22/16 10:43 Baso % (Auto) 0.1 % (0.0-1.8) 12/22/16 10:43 Lymph # 0.7 K/mm3 (1.2-5.4) L 12/22/16 10:43 [place] # 0.3 K/mm3 (0.0-0.8) 12/22/16 10:43 Eos # 0.1 K/mm3 (0.0-0.4) 12/22/16 10:43 Baso # 0.0 K/mm3 (0.0-0.1) 12/22/16 10:43 Seg Neutrophils % 73.3 % (40.0-70.0) H 12/22/16 10:43 Seg Neutrophils # 3.2 K/mm3 (1.8-7.7) 12/22/16 10:43 PT 13.7 Sec. (12.2-14.9) 12/22/16 18:53 INR 1.06 (0.87-1.13) 12/22/16 18:53 APTT 30.5 Sec. (24.2-36.6) 12/22/16 18:53 Sodium 136 mmol/L (137-145) L 12/22/16 10:43 Potassium 3.9 mmol/L (3.6-5.0) 12/22/16 10:43 Chloride 101.9 mmol/L (98-107) 12/22/16 10:43 Carbon Dioxide 25 mmol/L (22-30) 12/22/16 10:43 Anion Gap 13 mmol/L 12/22/16 10:43 BUN 8 mg/dL (9-20) L 12/22/16 10:43 Creatinine 0.6 mg/dL (0.8-1.5) L 12/22/16 10:43 Estimated GFR > 60 ml/min 12/22/16 10:43 BUN/Creatinine Ratio 13.33 % 12/22/16 10:43 Glucose 91 mg/dL (75-100) 12/22/16 10:43 POC Glucose 130 (70-105) H 12/23/16 21:35 Lactic Acid 0.90 mmol/L (0.7-2.0) 12/22/16 18:53 Calcium 7.7 mg/dL (8.4-10.2) L 12/22/16 10:43 Magnesium 1.80 mg/dL (1.7-2.3) 12/22/16 10:43 Total Bilirubin 0.20 mg/dL (0.1-1.2) 12/22/16 18:53 Direct Bilirubin < 0.2 mg/dL (0-0.2) 12/22/16 18:53 Indirect Bilirubin 0.0 mg/dL 12/22/16 18:53 AST 33 units/L (5-40) 12/22/16 18:53 ALT 33 units/L (7-56) 12/22/16 18:53 Alkaline Phosphatase 91 units/L (35-129) 12/22/16 18:53 Lactate Dehydrogenase 203 units/L (91-180) H 12/22/16 10:43 Troponin T < 0.010 ng/mL (0.00-0.029) 12/22/16 18:53 Total Protein 4.4 g/dL (6.3-8.2) L 12/22/16 18:53 Albumin 1.9 g/dL (3.9-5) L 12/22/16 18:53 Albumin/Globulin Ratio 0.8 % 12/22/16 18:53 Triglycerides 70 mg/dL (2-149) 12/23/16 07:30 Cholesterol 91 mg/dL (50-199) 12/23/16 07:30 LDL Cholesterol Direct 57 mg/dL (50-130) 12/23/16 07:30 HDL Cholesterol 20 mg/dL (40-59) L 12/23/16 07:30 Cholesterol/HDL Ratio 4.55 % 12/23/16 07:30 Urine Color Yellow (Yellow) 12/22/16 22:39 Urine Turbidity Clear (Clear) 12/22/16 22:39 Urine pH 6.0 (5.0-7.0) 12/22/16 22:39 Ur Specific [place] 1.020 (1.003-1.030) 12/22/16 22:39 Urine Protein <15 mg/dl mg/dL (Negative) 12/22/16 22:39 Urine Glucose (UA) Neg mg/dL (Negative) 12/22/16 22:39 Urine Ketones Neg mg/dL (Negative) 12/22/16 22:39 Urine Blood Neg (Negative) 12/22/16 22:39 Urine Nitrite Neg (Negative) 12/22/16 22:39 Urine Bilirubin Neg (Negative) 12/22/16 22:39 Urine Urobilinogen < 2.0 mg/dL (<2.0) 12/22/16 22:39 Ur Leukocyte Esterase Neg (Negative) 12/22/16 22:39 Urine WBC (Auto) 2.0 /HPF (0.0-6.0) 12/22/16 22:39 Urine RBC (Auto) 1.0 /HPF (0.0-6.0) 12/22/16 22:39 U Epithel Cells (Auto) < 1.0 /HPF (0-13.0) 12/22/16 22:39 Urine Mucus Few /HPF 12/22/16 22:39 Urine Opiates Screen Presumptive negative 12/22/16 22:39 Urine Methadone Screen Presumptive negative 12/22/16 22:39 Ur Barbiturates Screen Presumptive negative 12/22/16 22:39 Ur Phencyclidine Scrn Presumptive negative 12/22/16 22:39 Ur Amphetamines Screen Presumptive negative 12/22/16 22:39 U Benzodiazepines Scrn Presumptive negative 12/22/16 22:39 Urine Cocaine Screen Presumptive negative 12/22/16 22:39 U Marijuana (THC) Screen Presumptive negative 12/22/16 22:39 Drugs of Abuse Note Disclamer 12/22/16 22:39 Plasma/Serum Alcohol < 0.01 gm% (0-0.07) 12/22/16 10:43 Blood Type A POSITIVE 12/22/16 18:53 Antibody Screen TNR 12/22/16 18:53 KAREN Antibody Screen Negative 12/22/16 18:53
[2016-12-25] MEDS: ZOCOR PO SCH (21:38)
[2016-12-25] MEDS: DARUNAVIR PO SCH (21:42)
[2016-12-25] MEDS: COBICISTAT PO SCH (21:42)
[2016-12-25] MEDS: NON-FORMULARY (Emtricitab/Rilpiviri/Tenof Ala [Odefsey Tablet] 1 EACH) PO SCH (21:43)
--- NOTE | 2016-12-26 08:19 | Consultation ---
History of Present Illness - Reason for Consult Consult date: 12/26/16 HIV Infection - History of Present Illness Mr. Conrad is a 36-year-old man with HIV infection, likely AIDS, who presented for evaluation of progressive left-sided weakness over a 2-month duration. A CT head/ brain showed subacute to chronic ischemic changes in the right temperoparietal region. Brain MRI showed extensive white matter changes in the right temporal, parietal and occipital areas. Carotid dopplers and an echocardiogram showed no significant process. MRA head was unremarkable. He is currently followed at [facility] for treatment of HIV infection. He says he has been going there for ~6 months, although he was previously followed in [place]. He was initially diagnosed with HIV infection "3 years ago. " He does not know his T cell count. He says he has not been prescribed any other medicines, e.g. for OI prophylaxis, etc. He was recently prescribed Doxycycline for treatment of furuncles on his chest. These are resolving. Past History Past Medical History: other (HIV Infection, Nicotine Dependence) Past Surgical History: No surgical history, Other (reviewed) Social history: single, lives with family (with father), smoking. denies: alcohol abuse, prescription drug abuse, IV drug use Family history: hypertension Medications and Allergies Allergies Allergy/AdvReac Type Severity Reaction Status Date / Time No Known Allergies Allergy Unverified 12/22/16 10:09 Home Medications Medication Instructions Recorded Confirmed Last Taken Type Darunavir/Cobicistat (Nf) 1 tab PO DAILY 12/22/16 12/22/16 12/22/16 History [Prezcobix 800 mg-150 mg (Nf)] Doxycycline [Vibramycin] 100 mg PO Q12HR 12/22/16 12/22/16 12/22/16 History Emtricitab/Rilpiviri/Tenof Ala 1 each PO DAILY 12/22/16 12/22/16 12/22/16 History [Odefsey Tablet] Active Meds: Active Medications Acetaminophen (Tylenol) 650 mg PO Q4H PRN PRN Reason: Pain, Mild (1-3) Albuterol (Proventil) 2.5 mg IH Q6HRT PRN PRN Reason: Shortness Of Breath Bisacodyl (Dulcolax) 10 mg [place] QDAY PRN PRN Reason: Constipation Clopidogrel Bisulfate (Plavix) 75 mg PO QDAY [facility] Last Admin: 12/25/16 12:08 Dose: 75 mg Doxycycline Hyclate (Vibramycin) 100 mg PO Q12HR [facility] Last Admin: 12/25/16 21:38 Dose: 100 mg Magnesium Hydroxide (Milk Of Magnesia) 30 ml PO Q4H PRN PRN Reason: Constipation Metoclopramide HCl (Reglan) 10 mg PO Q6H PRN PRN Reason: Nausea And Vomiting Miscellaneous Medication (Darunavir/Cobicistat (Nf)) 1 tab PO QHS [facility] Last Admin: 12/25/16 21:42 Dose: 1 tab Miscellaneous Medication (Emtricitab/Rilpiviri/Tenof Ala [Odefsey Tablet]) [facility] Admin: 12/25/16 21:43 Dose: 1 each Ondansetron HCl (Zofran) 4 mg IV Q8H PRN PRN Reason: N/V unrelieved by Reglan Promethazine HCl (Phenergan) 25 mg [place] Q6H PRN PRN Reason: Nausea And Vomiting Simvastatin (Zocor) 20 mg PO QHS [facility] Last Admin: 12/25/16 21:38 Dose: 20 mg Sodium Chloride (Sodium Chloride Flush Syringe 10 Ml) 10 ml IV PRN PRN PRN Reason: LINE FLUSH Review of Systems All systems: negative Constitutional: weakness, no weight loss, no fever, no chills, no sweats Eyes: bilateral: decreased vision Ears, nose, mouth and throat: no sinus pressure, no mouth pain, no sore throat, no voice changes, no headache Cardiovascular: no chest pain, no palpitations Respiratory: no cough, no shortness of breath Gastrointestinal: no abdominal pain, no nausea, no vomiting, no diarrhea Genitourinary Male: no dysuria Integumentary: rash, sores, darkening of skin Neurological: weakness, change in speech, motor disturbance Physical Examination - Physical Exam Narrative exam: chronically ill-appearing man in no acute distress - Constitutional Vitals: Vital Signs Temp Pulse Resp BP Pulse Ox 98.4 F 79 19 99/58 99 12/26/16 06:37 12/26/16 06:37 12/26/16 06:37 12/26/16 06:37 12/26/16 06:37 Temperature -Last 24 Hours Temperature 98.4 F Temperature 98.5 F Temperature 97.6 F Temperature 98.4 F General appearance: Present: no acute distress - EENT Eyes: Absent: scleral icterus, conjunctival injection ENT: no thrush - Neck Neck: Present: supple, other (resolving furuncles over left clavicle, tender to touch). Absent: cervical LAD - Respiratory Respiratory effort: normal Respiratory: bilateral: CTA - Cardiovascular Rhythm: regular Heart Sounds: Present: S1 & S2 - Extremities Extremities: No edema - Abdominal General gastrointestinal: Present: soft, non-tender, non-distended, normal bowel sounds - Integumentary Integumentary: Present: rash (patchy hyperpigmentation along both cheeks; scaly skin changes along both legs; scalp seborrhea) - Psychiatric Psychiatric: cooperative (speaks slowly) - Neurologic Neurologic: other (3/5 motor strength left arm and leg) Results - Labs CBC & Chem 7: 12/22/16 10:43 12/22/16 10:43 Labs: Microbiology 12/22/16 21:24 Peripheral/Venous Blood Culture - Preliminary NO GROWTH AFTER 72 HOURS 12/22/16 18:53 Peripheral/Venous Blood Culture - Preliminary NO GROWTH AFTER 72 HOURS - Imaging and Cardiology Chest x-ray: report reviewed (normal) Assessment and Plan - Patient Problems (1) AIDS Current Visit: Yes Status: Acute Plan to address problem: 1. 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 2. Continue HAART. 3. Adding Bactrim for PCP prophylaxis.. This may also help to resolve furuncles on chest. 4. Check CD4 count and viral load. 5. Check RPR, serum cryptococcal antigen, toxo serologies, CMV serology (2) White matter abnormality on MRI of brain Current Visit: Yes Status: Acute Plan to address problem: 1. Will request LP to check CSF for LORENZO virus, HSV, crypto/ fungal, AFB and VDRL. 2. If evidence of PML, patient is on HAART. (3) Seborrhea Current Visit: Yes Status: Acute Plan to address problem: Topical selenium sulfide.
--- NOTE | 2016-12-26 09:17 | Hem/Onc Consultation ---
History of Present Illness - Reason for Consult Consult date: 12/26/16 - History of Present Illness dictated MRI more suggestive of PML would rec neuro eval please call if needed thank you Past History Past Medical History: other (HIV, Nicotine Dependence) Past Surgical History: No surgical history, Other (reviewed) Social history: single, smoking. denies: alcohol abuse, prescription drug abuse , IV drug use Family history: hypertension Medications and Allergies Allergies Allergy/AdvReac Type Severity Reaction Status Date / Time No Known Allergies Allergy Unverified 12/22/16 10:09 Home Medications Medication Instructions Recorded Confirmed Last Taken Type Darunavir/Cobicistat (Nf) 1 tab PO DAILY 12/22/16 12/22/16 12/22/16 History [Prezcobix 800 mg-150 mg (Nf)] Doxycycline [Vibramycin] 100 mg PO Q12HR 12/22/16 12/22/16 12/22/16 History Emtricitab/Rilpiviri/Tenof Ala 1 each PO DAILY 12/22/16 12/22/16 12/22/16 History [Odefsey Tablet] Active Meds: Active Medications Acetaminophen (Tylenol) 650 mg PO Q4H PRN PRN Reason: Pain, Mild (1-3) Albuterol (Proventil) 2.5 mg IH Q6HRT PRN PRN Reason: Shortness Of Breath Bisacodyl (Dulcolax) 10 mg [place] QDAY PRN PRN Reason: Constipation Clopidogrel Bisulfate (Plavix) 75 mg PO QDAY [facility] Last Admin: 12/25/16 12:08 Dose: 75 mg Doxycycline Hyclate (Vibramycin) 100 mg PO Q12HR [facility] Last Admin: 12/25/16 21:38 Dose: 100 mg Magnesium Hydroxide (Milk Of Magnesia) 30 ml PO Q4H PRN PRN Reason: Constipation Metoclopramide HCl (Reglan) 10 mg PO Q6H PRN PRN Reason: Nausea And Vomiting Miscellaneous Medication (Darunavir/Cobicistat (Nf)) 1 tab PO QHS [facility] Last Admin: 12/25/16 21:42 Dose: 1 tab Miscellaneous Medication (Emtricitab/Rilpiviri/Tenof Ala [Odefsey Tablet]) 1 each PO QHS [facility] Last Admin: 12/25/16 21:43 Dose: 1 each Ondansetron HCl (Zofran) 4 mg IV Q8H PRN PRN Reason: N/V unrelieved by Regmelissa Promethazine HCl (Phenergan) 25 mg [place] Q6H PRN PRN Reason: Nausea And Vomiting Simvastatin (Zocor) 20 mg PO QHS [facility] Last Admin: 12/25/16 21:38 Dose: 20 mg Sodium Chloride (Sodium Chloride Flush Syringe 10 Ml) 10 ml IV PRN PRN PRN Reason: LINE FLUSH Exam - Constitutional Vitals: Last Vital Signs Temp 98.8 F 12/26/16 09:01 Pulse 87 12/26/16 09:01 Resp 18 12/26/16 09:01 BP 97/64 12/26/16 09:01 Pulse Ox 97 12/26/16 09:01
[2016-12-26] MEDS: VIBRAMYCIN PO SCH ×2 (09:48→21:41)
[2016-12-26] MEDS: PLAVIX PO SCH (09:48)
--- NOTE | 2016-12-26 10:49 | Consultation ---
REFERRING PHYSICIAN: Dr. Rajan. REASON FOR CONSULTATION: Abnormal MRI of the head. HISTORY OF PRESENT ILLNESS: The patient is a 36-year-old male with HIV, nicotine dependence who presented to the hospital experiencing weakness and numbness in the left side of the body. His symptoms have gotten worsen in the last week, but he has been having these for the last 2 months. He underwent an MRI of the brain on 12/22/2016. There was evidence of extensive white matter signal abnormalities involving the right temporal, parietal and occipital lobes as well as splenium of corpus callosum and left occipital lobe. These were known enhancing lesions. There was a mention of possible lymphoma. Because of the fact that the patient has evidence of HIV, Oncology consult was called to rule out lymphoma. The patient has ____ is difficult to obtain since the patient is not giving the good history, but he apparently has been taking antiretroviral medications for his HIV. Denies any previous history of malignancy. SOCIAL HISTORY: Does smoke cigarettes. PHYSICAL EXAMINATION: GENERAL: The patient is awake. He seems to be unkempt. HEENT: Remarkable for some nonspecific rash on the neck. LUNGS: Chest is clear. CARDIOVASCULAR: Regular rate and rhythm. ABDOMEN: Soft. EXTREMITIES: No clubbing or cyanosis. GENITALIA: The patient's genitals show small warty lesions all over his penis. NEUROLOGIC: Neurologically, the patient has left-sided weakness. PERTINENT LABS: The patient's hemoglobin was 13.2, platelets 250,000, white count 4.3. PT 13.7, INR 1.06, PTT 30.5, creatinine of 0.6. ASSESSMENT: Abnormal MRI of the head in this patient with HIV positivity. RECOMMENDATION AND PLAN: At this time, discussed the case with radiology. These lesions do not seem to be suggestive of lymphoma or malignancy. They are most likely suggestive of progressive multifocal ____. I would suggest a neurology evaluation on the patient. Infectious Disease has already been consulted. I would see the patient if neurology or infectious disease want me to reevaluate the patient, but currently I do not see any evidence of lymphomatous process radiologically on the MRI. Will sign off and please call us if needed. JOB# [id number] JOSES/NTS
[2016-12-26] MEDS ORDERED: SELSUN TP PRN (11:28)
--- NOTE | 2016-12-26 12:01 | Consultation ---
History of Present Illness Consult date: 12/26/16 Requesting physician: DOMO BOWEN Reason for Consult: ? PML Chief complaint: L sided weakness History of present illness: 36 YO M Hx HIV for many years on HAART p/w 10 days of progressive L sided weakness and difficulty w/ L sided vision. Sx are constant. There are no clear aggravating, relieving or temporal factors. Severity was enough to cause inability to effectively use the left side or see well to the L. Past History Past Medical History: other (HIV Infection, Nicotine Dependence) Past Surgical History: No surgical history, Other (reviewed) Social history: single, lives with family (with father), smoking. denies: alcohol abuse, prescription drug abuse, IV drug use Family history: hypertension Medications and Allergies Allergies Allergy/AdvReac Type Severity Reaction Status Date / Time No Known Allergies Allergy Unverified 12/22/16 10:09 Home Medications Medication Instructions Recorded Confirmed Last Taken Type Darunavir/Cobicistat (Nf) 1 tab PO DAILY 12/22/16 12/22/16 12/22/16 History [Prezcobix 800 mg-150 mg (Nf)] Doxycycline [Vibramycin] 100 mg PO Q12HR 12/22/16 12/22/16 12/22/16 History Emtricitab/Rilpiviri/Tenof Ala 1 each PO DAILY 12/22/16 12/22/16 12/22/16 History [Odefsey Tablet] Active Meds: Active Medications Acetaminophen (Tylenol) 650 mg PO Q4H PRN PRN Reason: Pain, Mild (1-3) Albuterol (Proventil) 2.5 mg IH Q6HRT PRN PRN Reason: Shortness Of Breath Bisacodyl (Dulcolax) 10 mg [place] QDAY PRN PRN Reason: Constipation Clopidogrel Bisulfate (Plavix) 75 mg PO QDAY [facility] Last Admin: 12/26/16 09:48 Dose: 75 mg Doxycycline Hyclate (Vibramycin) 100 mg PO Q12HR [facility] Last Admin: 12/26/16 09:48 Dose: 100 mg Magnesium Hydroxide (Milk Of Magnesia) 30 ml PO Q4H PRN PRN Reason: Constipation Metoclopramide HCl (Reglan) 10 mg PO Q6H PRN PRN Reason: Nausea And Vomiting Miscellaneous Medication (Darunavir/Cobicistat (Nf)) 1 tab PO QHS [facility] Last Admin: 12/25/16 21:42 Dose: 1 tab Miscellaneous Medication (Emtricitab/Rilpiviri/Tenof Ala [Odefsey Tablet]) 1 each PO QHS [facility] Last Admin: 12/25/16 21:43 Dose: 1 each Ondansetron HCl (Zofran) 4 mg IV Q8H PRN PRN Reason: N/V unrelieved by Reglan Promethazine HCl (Phenergan) 25 mg [place] Q6H PRN PRN Reason: Nausea And Vomiting Selenium Sulfide (Selsun) 1 applic TP 2XW PRN PRN Reason: Seborrhea Simvastatin (Zocor) 20 mg PO QHS [facility] Last Admin: 12/25/16 21:38 Dose: 20 mg Sodium Chloride (Sodium Chloride Flush Syringe 10 Ml) 10 ml IV PRN PRN PRN Reason: LINE FLUSH Trimethoprim/Sulfamethoxazole (Bactrim Ds) 1 each PO DAILY [facility] Review of Systems All systems: negative Constitutional: fatigue, weakness Neurological: weakness, numbness, change in speech, balance difficulties, gait dysfunction, motor disturbance, loss of vision, no paralysis, no parathesias, no tingling, no seizures, no syncope, no headaches, no double vision Physical Examination - Vital Signs Vital Signs: Vital Signs Temp Pulse Resp BP Pulse Ox 97.6 F 86 18 104/65 100 12/22/16 10:10 12/22/16 10:10 12/22/16 10:10 12/22/16 10:10 12/22/16 10:10 - Constitutional General appearance: acutely ill, chronically ill, older than stated age - EENT EENT: Present: ATNC, PERRL, mucous membranes moist, hearing intact - Respiratory Respiratory: Present: chest non-tender, normal breath sounds, no respiratory distress - Cardiovascular Cardiovascular: Present: regular rate Extremities: Present: no peripheral edema bilatateraly, no clubbing, cyanosis, no inflammation, no ischemia or petechiae - Gastrointestinal Gastrointestinal: Present: normoactive bowel sounds, soft, non-distended - Integumentary Integumentary: Present: normal - Neurologic Cranial nerve examination: PERRL, EOMI, intact, Intact Vestibulo-ocular r, intact corneal reflex, facial droop (mod on L), normal palatal elevation, other (L field cut and neglect) Speech examination: other (aprosodic speech ) Sensorimotor examination: pronator drift (on L), hemiparesis (on R), hemineglect (to L) Motor examination - right side: 5/5: biceps, triceps, wrist flexion, wrist extension, centrifugal operator, hip flexors, knee extensors, dorsiflexion, toe extension (EHL) , plantarflexion Motor examination - left side: 45: biceps, triceps, wrist flexion, wrist extension, centrifugal operator, hip flexors, knee extensors, dorsiflexion, toe extension (EHL) , plantarflexion Detailed sensory examination: light touch (diminished on L), temperature ( diminsihed on L) Reflex and gait examination: Babinski's sign (on L) Reflexes: 3+: ankle (on L), bicep, knee, tricep - Musculoskeletal Musculoskeletal: Present: no fluid collection, no pain, normal range of motion - Psychiatric Psychiatric: Present: mood/affect appropriate, cooperative Results - Laboratory Findings CBC and BMP: 12/22/16 10:43 12/22/16 10:43 Abnormal Lab Findings: Abnormal Labs 12/23/16 12/23/16 07:30 21:35 POC Glucose 130 H HDL Cholesterol 20 L Assessment and Plan 36 YO M Hx HIV for many years on HAART p/w 10 days of progressive L sided weakness and difficulty w/ L sided vision. Clinical exam consistent with R hemispheric dense lesion. MRI Brain confirms extensive white matter disease of R temporparietaloccipital lobes, splenium of corpus callosum, and L occipital lobe w/o enhancement. I suspect PML but [employer] lymphoma in the differential. MRA head neg. Recs: 1. Neuro checks 2. LP for routines, HSV/VZV, Crypto Ag, JCV PCR, Cytology 3. ID consult pending 4. No indication for IV steroids @ this time 5. will f/u 12/30.
--- NOTE | 2016-12-26 14:25 | Progress Note ---
Assessment and Plan Assessment and plan: 36 YO M Hx HIV for many years on HAART p/w 10 days of progressive L sided weakness and difficulty w/ L sided vision. Clinical exam consistent with R hemispheric dense lesion. MRI Brain confirms extensive white matter disease of R temporparietaloccipital lobes, splenium of corpus callosum, and L occipital lobe w/o enhancement. I suspect PML but [employer] lymphoma in the differential. MRA head neg. * Encephalopathy * NICOTINE DEPENDENCE * AIDS * LEFT SIDED HEMIPLEGIA * WHITE MATTER ABNORMALITY ON BRAIN MRI CONCERNING FOR PML,MALIGNANCY * SEBORRHEA PLAN: * CONTINUE SUPPORTIVE CARE * LP DIAGNOSTIC- patient was on plavix and will need a week off PLAVIX for LP per Radiology * CONTINUE CURRENT THERAPY * PLAN DISCUSSED WITH THE PATIENT * PT/OT EVAL AND TREAT * DVT/GI PROPHY History Interval history: Patient seen and examined in no acute distress but reports visual impairment. unimproved since admission. No other adverse events reported by nursing staff Hospitalist Physical - Physical exam Narrative exam: VITAL SIGNS: Reviewed. GENERAL: The patient appeared well nourished and normally developed. Vital signs as documented. HEAD: No signs of head trauma. EYES: Pupils are equal. Visual impairment EARS: Hearing grossly intact. MOUTH: Oropharynx is normal. NECK: No adenopathy, no JVD. CHEST: Chest with clear breath sounds bilaterally. No wheezes, rales, or rhonchi. CARDIAC: Regular rate and rhythm. S1 and S2, without murmurs, gallops, or rubs. VASCULAR: No Edema. Peripheral pulses normal and equal in all extremities. ABDOMEN: Soft, without detectable tenderness. No sign of distention. No rebound or guarding, and no masses palpated. Bowel Sounds normal. MUSCULOSKELETAL: Noted range of motion on the left side Extremities without clubbing, cyanosis or edema. NEUROLOGIC EXAM: Alert and oriented x 2. Motor strength on the left side as 3 over 5 in upper extremities and lower extremities full for 5. Speech normal. Follows commands. PSYCHIATRIC: Mood normal. SKIN: Multiple skin induration subcarinal area, generalized lower extremity. - Constitutional Vitals: Temp Pulse Resp BP Pulse Ox 98.8 F 87 18 97/64 97 12/26/16 09:01 12/26/16 09:01 12/26/16 09:01 12/26/16 09:01 12/26/16 09:01 General appearance: Present: no acute distress Results - Labs CBC & Chem 7: 12/22/16 10:43 12/22/16 10:43 Labs: Laboratory Last Values WBC 4.3 K/mm3 (4.5-11.0) L 12/22/16 10:43 RBC 4.53 M/mm3 (3.65-5.03) 12/22/16 10:43 Hgb 13.2 gm/dl (10.1-14.3) 12/22/16 10:43 Hct 40.7 % (30.3-42.9) 12/22/16 10:43 MCV 90 fl (79-97) 12/22/16 10:43 MCH 29 pg (28-32) 12/22/16 10:43 MCHC 33 % (30-34) 12/22/16 10:43 RDW 17.1 % (13.2-15.2) H 12/22/16 10:43 Plt Count 250 K/mm3 (140-440) 12/22/16 10:43 Lymph % (Auto) 16.5 % (13.4-35.0) 12/22/16 10:43 Bonner % (Auto) 7.7 % (0.0-7.3) H 12/22/16 10:43 Eos % (Auto) 2.4 % (0.0-4.3) 12/22/16 10:43 Baso % (Auto) 0.1 % (0.0-1.8) 12/22/16 10:43 Lymph # 0.7 K/mm3 (1.2-5.4) L 12/22/16 10:43 Bonner # 0.3 K/mm3 (0.0-0.8) 12/22/16 10:43 Eos # 0.1 K/mm3 (0.0-0.4) 12/22/16 10:43 Baso # 0.0 K/mm3 (0.0-0.1) 12/22/16 10:43 Seg Neutrophils % 73.3 % (40.0-70.0) H 12/22/16 10:43 Seg Neutrophils # 3.2 K/mm3 (1.8-7.7) 12/22/16 10:43 PT 13.7 Sec. (12.2-14.9) 12/22/16 18:53 INR 1.06 (0.87-1.13) 12/22/16 18:53 APTT 30.5 Sec. (24.2-36.6) 12/22/16 18:53 Sodium 136 mmol/L (137-145) L 12/22/16 10:43 Potassium 3.9 mmol/L (3.6-5.0) 12/22/16 10:43 Chloride 101.9 mmol/L (98-107) 12/22/16 10:43 Carbon Dioxide 25 mmol/L (22-30) 12/22/16 10:43 Anion Gap 13 mmol/L 12/22/16 10:43 BUN 8 mg/dL (9-20) L 12/22/16 10:43 Creatinine 0.6 mg/dL (0.8-1.5) L 12/22/16 10:43 Estimated GFR > 60 ml/min 12/22/16 10:43 BUN/Creatinine Ratio 13.33 % 12/22/16 10:43 Glucose 91 mg/dL (75-100) 12/22/16 10:43 POC Glucose 130 (70-105) H 12/23/16 21:35 Lactic Acid 0.90 mmol/L (0.7-2.0) 12/22/16 18:53 Calcium 7.7 mg/dL (8.4-10.2) L 12/22/16 10:43 Magnesium 1.80 mg/dL (1.7-2.3) 12/22/16 10:43 Total Bilirubin 0.20 mg/dL (0.1-1.2) 12/22/16 18:53 Direct Bilirubin < 0.2 mg/dL (0-0.2) 12/22/16 18:53 Indirect Bilirubin 0.0 mg/dL 12/22/16 18:53 AST 33 units/L (5-40) 12/22/16 18:53 ALT 33 units/L (7-56) 12/22/16 18:53 Alkaline Phosphatase 91 units/L (35-129) 12/22/16 18:53 Lactate Dehydrogenase 203 units/L (91-180) H 12/22/16 10:43 Troponin T < 0.010 ng/mL (0.00-0.029) 12/22/16 18:53 Total Protein 4.4 g/dL (6.3-8.2) L 12/22/16 18:53 Albumin 1.9 g/dL (3.9-5) L 12/22/16 18:53 Albumin/Globulin Ratio 0.8 % 12/22/16 18:53 Triglycerides 70 mg/dL (2-149) 12/23/16 07:30 Cholesterol 91 mg/dL (50-199) 12/23/16 07:30 LDL Cholesterol Direct 57 mg/dL (50-130) 12/23/16 07:30 HDL Cholesterol 20 mg/dL (40-59) L 12/23/16 07:30 Cholesterol/HDL Ratio 4.55 % 12/23/16 07:30 Urine Color Yellow (Yellow) 12/22/16 22:39 Urine Turbidity Clear (Clear) 12/22/16 22:39 Urine pH 6.0 (5.0-7.0) 12/22/16 22:39 Ur Specific [place] 1.020 (1.003-1.030) 12/22/16 22:39 Urine Protein <15 mg/dl mg/dL (Negative) 12/22/16 22:39 Urine Glucose (UA) Neg mg/dL (Negative) 12/22/16 22:39 Urine Ketones Neg mg/dL (Negative) 12/22/16 22:39 Urine Blood Neg (Negative) 12/22/16 22:39 Urine Nitrite Neg (Negative) 12/22/16 22:39 Urine Bilirubin Neg (Negative) 12/22/16 22:39 Urine Urobilinogen < 2.0 mg/dL (<2.0) 12/22/16 22:39 Ur Leukocyte Esterase Neg (Negative) 12/22/16 22:39 Urine WBC (Auto) 2.0 /HPF (0.0-6.0) 12/22/16 22:39 Urine RBC (Auto) 1.0 /HPF (0.0-6.0) 12/22/16 22:39 U Epithel Cells (Auto) < 1.0 /HPF (0-13.0) 12/22/16 22:39 Urine Mucus Few /HPF 12/22/16 22:39 Urine Opiates Screen Presumptive negative 12/22/16 22:39 Urine Methadone Screen Presumptive negative 12/22/16 22:39 Ur Barbiturates Screen Presumptive negative 12/22/16 22:39 Ur Phencyclidine Scrn Presumptive negative 12/22/16 22:39 Ur Amphetamines Screen Presumptive negative 12/22/16 22:39 U Benzodiazepines Scrn Presumptive negative 12/22/16 22:39 Urine Cocaine Screen Presumptive negative 12/22/16 22:39 U Marijuana (THC) Screen Presumptive negative 12/22/16 22:39 Drugs of Abuse Note Disclamer 12/22/16 22:39 Plasma/Serum Alcohol < 0.01 gm% (0-0.07) 12/22/16 10:43 Blood Type A POSITIVE 12/22/16 18:53 Antibody Screen TNR 12/22/16 18:53 KAREN Antibody Screen Negative 12/22/16 18:53
[2016-12-26 14:30] LABS: INR 1.02 (0.87-1.13)
[2016-12-26] MEDS: BACTRIM DS PO SCH (19:10)
[2016-12-26] MEDS: ZOCOR PO SCH (21:41)
[2016-12-26] MEDS: NON-FORMULARY (Emtricitab/Rilpiviri/Tenof Ala [Odefsey Tablet] 1 EACH) PO SCH (21:42)
[2016-12-26] MEDS: DARUNAVIR PO SCH (21:43)
[2016-12-26] MEDS: COBICISTAT PO SCH (21:43)
[2016-12-27] MEDS: BACTRIM DS PO SCH (11:00)
[2016-12-27] MEDS: VIBRAMYCIN PO SCH ×2 (11:01→23:06)
--- NOTE | 2016-12-27 15:18 | Progress Note ---
Assessment and Plan Assessment and plan: 36 YO M Hx HIV for many years on HAART p/w 10 days of progressive L sided weakness and difficulty w/ L sided vision. Clinical exam consistent with R hemispheric dense lesion. MRI Brain confirms extensive white matter disease of R temporparietaloccipital lobes, splenium of corpus callosum, and L occipital lobe w/o enhancement. 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 MRA head neg. * Acute metabolic encephalopathy * Decreased visual acuity possible opthalmoplegia * NICOTINE DEPENDENCE * AIDS * LEFT SIDED HEMIPLEGIA * WHITE MATTER ABNORMALITY ON BRAIN MRI CONCERNING FOR PML,MALIGNANCY * SEBORRHEA PLAN: * CONTINUE SUPPORTIVE CARE * unfortunately not a safe discharge at this time, as patient remains visual impaired, unable to ambulate un assisted, * Await LP, may also need JS consult and possibly transfer to a facility with such capability * LP DIAGNOSTIC- patient was on plavix and will need a week off PLAVIX for LP per Radiology * CONTINUE CURRENT THERAPY * FALL PRECAUTIONS * Discussed with ID * PLAN DISCUSSED WITH THE PATIENT * PT/OT EVAL AND TREAT * DVT/GI PROPHY History Interval history: Patient seen and examined in no acute distress but reports visual impairment. unimproved since admission. No other adverse events reported by nursing staff Hospitalist Physical - Physical exam Narrative exam: VITAL SIGNS: Reviewed. GENERAL: The patient appeared well nourished and normally developed. Vital signs as documented. HEAD: No signs of head trauma. EYES: Pupils are equal. Visual impairment EARS: Hearing grossly intact. MOUTH: Oropharynx is normal. NECK: No adenopathy, no JVD. CHEST: Chest with clear breath sounds bilaterally. No wheezes, rales, or rhonchi. CARDIAC: Regular rate and rhythm. S1 and S2, without murmurs, gallops, or rubs. VASCULAR: No Edema. Peripheral pulses normal and equal in all extremities. ABDOMEN: Soft, without detectable tenderness. No sign of distention. No rebound or guarding, and no masses palpated. Bowel Sounds normal. MUSCULOSKELETAL: Noted range of motion on the left side Extremities without clubbing, cyanosis or edema. NEUROLOGIC EXAM: Alert and oriented x 2. Motor strength on the left side as 3 over 5 in upper extremities and lower extremities full for 5. Speech normal. Follows commands. PSYCHIATRIC: Mood normal. SKIN: Multiple skin induration subcarinal area, generalized lower extremity. - Constitutional Vitals: Temp Pulse Resp BP Pulse Ox 98.2 F 86 18 101/67 97 12/27/16 13:29 12/27/16 13:29 12/27/16 13:29 12/27/16 13:29 12/27/16 13:29 General appearance: Present: no acute distress Results - Labs CBC & Chem 7: 12/22/16 10:43 12/22/16 10:43 Labs: Laboratory Last Values WBC 4.3 K/mm3 (4.5-11.0) L 12/22/16 10:43 RBC 4.53 M/mm3 (3.65-5.03) 12/22/16 10:43 Hgb 13.2 gm/dl (10.1-14.3) 12/22/16 10:43 Hct 40.7 % (30.3-42.9) 12/22/16 10:43 MCV 90 fl (79-97) 12/22/16 10:43 MCH 29 pg (28-32) 12/22/16 10:43 MCHC 33 % (30-34) 12/22/16 10:43 RDW 17.1 % (13.2-15.2) H 12/22/16 10:43 Plt Count 250 K/mm3 (140-440) 12/22/16 10:43 Lymph % (Auto) 16.5 % (13.4-35.0) 12/22/16 10:43 [place] % (Auto) 7.7 % (0.0-7.3) H 12/22/16 10:43 Eos % (Auto) 2.4 % (0.0-4.3) 12/22/16 10:43 Baso % (Auto) 0.1 % (0.0-1.8) 12/22/16 10:43 Lymph # 0.7 K/mm3 (1.2-5.4) L 12/22/16 10:43 [place] # 0.3 K/mm3 (0.0-0.8) 12/22/16 10:43 Eos # 0.1 K/mm3 (0.0-0.4) 12/22/16 10:43 Baso # 0.0 K/mm3 (0.0-0.1) 12/22/16 10:43 Seg Neutrophils % 73.3 % (40.0-70.0) H 12/22/16 10:43 Seg Neutrophils # 3.2 K/mm3 (1.8-7.7) 12/22/16 10:43 PT 13.3 Sec. (12.2-14.9) 12/26/16 13:33 INR 1.02 (0.87-1.13) 12/26/16 13:33 APTT 29.0 Sec. (24.2-36.6) 12/26/16 13:33 Sodium 136 mmol/L (137-145) L 12/22/16 10:43 Potassium 3.9 mmol/L (3.6-5.0) 12/22/16 10:43 Chloride 101.9 mmol/L (98-107) 12/22/16 10:43 Carbon Dioxide 25 mmol/L (22-30) 12/22/16 10:43 Anion Gap 13 mmol/L 12/22/16 10:43 BUN 8 mg/dL (9-20) L 12/22/16 10:43 Creatinine 0.6 mg/dL (0.8-1.5) L 12/22/16 10:43 Estimated GFR > 60 ml/min 12/22/16 10:43 BUN/Creatinine Ratio 13.33 % 12/22/16 10:43 Glucose 91 mg/dL (75-100) 12/22/16 10:43 POC Glucose 130 (70-105) H 12/23/16 21:35 Lactic Acid 0.90 mmol/L (0.7-2.0) 12/22/16 18:53 Calcium 7.7 mg/dL (8.4-10.2) L 12/22/16 10:43 Magnesium 1.80 mg/dL (1.7-2.3) 12/22/16 10:43 Total Bilirubin 0.20 mg/dL (0.1-1.2) 12/22/16 18:53 Direct Bilirubin < 0.2 mg/dL (0-0.2) 12/22/16 18:53 Indirect Bilirubin 0.0 mg/dL 12/22/16 18:53 AST 33 units/L (5-40) 12/22/16 18:53 ALT 33 units/L (7-56) 12/22/16 18:53 Alkaline Phosphatase 91 units/L (35-129) 12/22/16 18:53 Lactate Dehydrogenase 203 units/L (91-180) H 12/22/16 10:43 Troponin T < 0.010 ng/mL (0.00-0.029) 12/22/16 18:53 Total Protein 4.4 g/dL (6.3-8.2) L 12/22/16 18:53 Albumin 1.9 g/dL (3.9-5) L 12/22/16 18:53 Albumin/Globulin Ratio 0.8 % 12/22/16 18:53 Triglycerides 70 mg/dL (2-149) 12/23/16 07:30 Cholesterol 91 mg/dL (50-199) 12/23/16 07:30 LDL Cholesterol Direct 57 mg/dL (50-130) 12/23/16 07:30 HDL Cholesterol 20 mg/dL (40-59) L 12/23/16 07:30 Cholesterol/HDL Ratio 4.55 % 12/23/16 07:30 Urine Color Yellow (Yellow) 12/22/16 22:39 Urine Turbidity Clear (Clear) 12/22/16 22:39 Urine pH 6.0 (5.0-7.0) 12/22/16 22:39 Ur Specific [place] 1.020 (1.003-1.030) 12/22/16 22:39 Urine Protein <15 mg/dl mg/dL (Negative) 12/22/16 22:39 Urine Glucose (UA) Neg mg/dL (Negative) 12/22/16 22:39 Urine Ketones Neg mg/dL (Negative) 12/22/16 22:39 Urine Blood Neg (Negative) 12/22/16 22:39 Urine Nitrite Neg (Negative) 12/22/16 22:39 Urine Bilirubin Neg (Negative) 12/22/16 22:39 Urine Urobilinogen < 2.0 mg/dL (<2.0) 12/22/16 22:39 Ur Leukocyte Esterase Neg (Negative) 12/22/16 22:39 Urine WBC (Auto) 2.0 /HPF (0.0-6.0) 12/22/16 22:39 Urine RBC (Auto) 1.0 /HPF (0.0-6.0) 12/22/16 22:39 U Epithel Cells (Auto) < 1.0 /HPF (0-13.0) 12/22/16 22:39 Urine Mucus Few /HPF 12/22/16 22:39 Urine Opiates Screen Presumptive negative 12/22/16 22:39 Urine Methadone Screen Presumptive negative 12/22/16 22:39 Ur Barbiturates Screen Presumptive negative 12/22/16 22:39 Ur Phencyclidine Scrn Presumptive negative 12/22/16 22:39 Ur Amphetamines Screen Presumptive negative 12/22/16 22:39 U Benzodiazepines Scrn Presumptive negative 12/22/16 22:39 Urine Cocaine Screen Presumptive negative 12/22/16 22:39 U Marijuana (THC) Screen Presumptive negative 12/22/16 22:39 Drugs of Abuse Note Disclamer 12/22/16 22:39 Plasma/Serum Alcohol < 0.01 gm% (0-0.07) 12/22/16 10:43 RPR Nonreactive (Nonreactive) 12/26/16 13:33 Blood Type A POSITIVE 12/22/16 18:53 Antibody Screen TNR 12/22/16 18:53 KAREN Antibody Screen Negative 12/22/16 18:53
[2016-12-27] MEDS: DARUNAVIR PO SCH (23:05)
[2016-12-27] MEDS: NON-FORMULARY (Emtricitab/Rilpiviri/Tenof Ala [Odefsey Tablet] 1 EACH) PO SCH (23:05)
[2016-12-27] MEDS: COBICISTAT PO SCH (23:05)
[2016-12-27] MEDS: ZOCOR PO SCH (23:06)
[2016-12-28] MEDS ORDERED: NACL 0.9% 500 ML 500 ML IV ONE (09:43)
--- NOTE | 2016-12-28 09:44 | Progress Note ---
Assessment and Plan Assessment and plan: 36 YO M Hx HIV for many years on HAART p/w 10 days of progressive L sided weakness and difficulty w/ L sided vision. Clinical exam consistent with R hemispheric dense lesion. MRI Brain confirms extensive white matter disease of R temporparietaloccipital lobes, splenium of corpus callosum, and L occipital lobe w/o enhancement. 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 MRA head neg. * Acute metabolic encephalopathy * Decreased visual acuity possible opthalmoplegia * Hypotension * NICOTINE DEPENDENCE * AIDS * LEFT SIDED HEMIPLEGIA * WHITE MATTER ABNORMALITY ON BRAIN MRI CONCERNING FOR PML,MALIGNANCY * SEBORRHEA PLAN: * CONTINUE SUPPORTIVE CARE * Give IVF bolus 500 cc and maintain on 125 cc * unfortunately not a safe discharge at this time, as patient remains visual impaired, unable to ambulate un assisted, * Await LP, may also need JS consult and possibly transfer to a facility with such capability * LP DIAGNOSTIC- patient was on plavix and will need a week off PLAVIX for LP per Radiology * CONTINUE CURRENT THERAPY * FALL PRECAUTIONS * Discussed with ID * PLAN DISCUSSED WITH THE PATIENT * PT/OT EVAL AND TREAT * DVT/GI PROPHY History Interval history: Patient seen and examined in no acute distress but reports visual impairment. unimproved since admission. No other adverse events reported by nursing staff Hospitalist Physical - Physical exam Narrative exam: VITAL SIGNS: Reviewed. GENERAL: The patient appeared well nourished and normally developed. Vital signs as documented. HEAD: No signs of head trauma. EYES: Pupils are equal. Visual impairment EARS: Hearing grossly intact. MOUTH: Oropharynx is normal. NECK: No adenopathy, no JVD. CHEST: Chest with clear breath sounds bilaterally. No wheezes, rales, or rhonchi. CARDIAC: Regular rate and rhythm. S1 and S2, without murmurs, gallops, or rubs. VASCULAR: No Edema. Peripheral pulses normal and equal in all extremities. ABDOMEN: Soft, without detectable tenderness. No sign of distention. No rebound or guarding, and no masses palpated. Bowel Sounds normal. MUSCULOSKELETAL: Noted range of motion on the left side Extremities without clubbing, cyanosis or edema. NEUROLOGIC EXAM: Alert and oriented x 2. Motor strength on the left side as 3 over 5 in upper extremities and lower extremities full for 5. Speech normal. Follows commands. PSYCHIATRIC: Mood normal. SKIN: Multiple skin induration subcarinal area, generalized lower extremity. - Constitutional Vitals: Temp Pulse Resp BP Pulse Ox 98.3 F 78 18 84/50 93 12/28/16 06:15 12/28/16 06:15 12/28/16 06:15 12/28/16 06:15 12/28/16 06:15 General appearance: Present: no acute distress Results - Labs CBC & Chem 7: 12/22/16 10:43 12/22/16 10:43 Labs: Laboratory Last Values WBC 4.3 K/mm3 (4.5-11.0) L 12/22/16 10:43 RBC 4.53 M/mm3 (3.65-5.03) 12/22/16 10:43 Hgb 13.2 gm/dl (10.1-14.3) 12/22/16 10:43 Hct 40.7 % (30.3-42.9) 12/22/16 10:43 MCV 90 fl (79-97) 12/22/16 10:43 MCH 29 pg (28-32) 12/22/16 10:43 MCHC 33 % (30-34) 12/22/16 10:43 RDW 17.1 % (13.2-15.2) H 12/22/16 10:43 Plt Count 250 K/mm3 (140-440) 12/22/16 10:43 Lymph % (Auto) 16.5 % (13.4-35.0) 12/22/16 10:43 [place] % (Auto) 7.7 % (0.0-7.3) H 12/22/16 10:43 Eos % (Auto) 2.4 % (0.0-4.3) 12/22/16 10:43 Baso % (Auto) 0.1 % (0.0-1.8) 12/22/16 10:43 Lymph # 0.7 K/mm3 (1.2-5.4) L 12/22/16 10:43 [place] # 0.3 K/mm3 (0.0-0.8) 12/22/16 10:43 Eos # 0.1 K/mm3 (0.0-0.4) 12/22/16 10:43 Baso # 0.0 K/mm3 (0.0-0.1) 12/22/16 10:43 Seg Neutrophils % 73.3 % (40.0-70.0) H 12/22/16 10:43 Seg Neutrophils # 3.2 K/mm3 (1.8-7.7) 12/22/16 10:43 PT 13.3 Sec. (12.2-14.9) 12/26/16 13:33 INR 1.02 (0.87-1.13) 12/26/16 13:33 APTT 29.0 Sec. (24.2-36.6) 12/26/16 13:33 Sodium 136 mmol/L (137-145) L 12/22/16 10:43 Potassium 3.9 mmol/L (3.6-5.0) 12/22/16 10:43 Chloride 101.9 mmol/L (98-107) 12/22/16 10:43 Carbon Dioxide 25 mmol/L (22-30) 12/22/16 10:43 Anion Gap 13 mmol/L 12/22/16 10:43 BUN 8 mg/dL (9-20) L 12/22/16 10:43 Creatinine 0.6 mg/dL (0.8-1.5) L 12/22/16 10:43 Estimated GFR > 60 ml/min 12/22/16 10:43 BUN/Creatinine Ratio 13.33 % 12/22/16 10:43 Glucose 91 mg/dL (75-100) 12/22/16 10:43 POC Glucose 130 (70-105) H 12/23/16 21:35 Lactic Acid 0.90 mmol/L (0.7-2.0) 12/22/16 18:53 Calcium 7.7 mg/dL (8.4-10.2) L 12/22/16 10:43 Magnesium 1.80 mg/dL (1.7-2.3) 12/22/16 10:43 Total Bilirubin 0.20 mg/dL (0.1-1.2) 12/22/16 18:53 Direct Bilirubin < 0.2 mg/dL (0-0.2) 12/22/16 18:53 Indirect Bilirubin 0.0 mg/dL 12/22/16 18:53 AST 33 units/L (5-40) 12/22/16 18:53 ALT 33 units/L (7-56) 12/22/16 18:53 Alkaline Phosphatase 91 units/L (35-129) 12/22/16 18:53 Lactate Dehydrogenase 203 units/L (91-180) H 12/22/16 10:43 Troponin T < 0.010 ng/mL (0.00-0.029) 12/22/16 18:53 Total Protein 4.4 g/dL (6.3-8.2) L 12/22/16 18:53 Albumin 1.9 g/dL (3.9-5) L 12/22/16 18:53 Albumin/Globulin Ratio 0.8 % 12/22/16 18:53 Triglycerides 70 mg/dL (2-149) 12/23/16 07:30 Cholesterol 91 mg/dL (50-199) 12/23/16 07:30 LDL Cholesterol Direct 57 mg/dL (50-130) 12/23/16 07:30 HDL Cholesterol 20 mg/dL (40-59) L 12/23/16 07:30 Cholesterol/HDL Ratio 4.55 % 12/23/16 07:30 Urine Color Yellow (Yellow) 12/22/16 22:39 Urine Turbidity Clear (Clear) 12/22/16 22:39 Urine pH 6.0 (5.0-7.0) 12/22/16 22:39 Ur Specific [place] 1.020 (1.003-1.030) 12/22/16 22:39 Urine Protein <15 mg/dl mg/dL (Negative) 12/22/16 22:39 Urine Glucose (UA) Neg mg/dL (Negative) 12/22/16 22:39 Urine Ketones Neg mg/dL (Negative) 12/22/16 22:39 Urine Blood Neg (Negative) 12/22/16 22:39 Urine Nitrite Neg (Negative) 12/22/16 22:39 Urine Bilirubin Neg (Negative) 12/22/16 22:39 Urine Urobilinogen < 2.0 mg/dL (<2.0) 12/22/16 22:39 Ur Leukocyte Esterase Neg (Negative) 12/22/16 22:39 Urine WBC (Auto) 2.0 /HPF (0.0-6.0) 12/22/16 22:39 Urine RBC (Auto) 1.0 /HPF (0.0-6.0) 12/22/16 22:39 U Epithel Cells (Auto) < 1.0 /HPF (0-13.0) 12/22/16 22:39 Urine Mucus Few /HPF 12/22/16 22:39 Urine Opiates Screen Presumptive negative 12/22/16 22:39 Urine Methadone Screen Presumptive negative 12/22/16 22:39 Ur Barbiturates Screen Presumptive negative 12/22/16 22:39 Ur Phencyclidine Scrn Presumptive negative 12/22/16 22:39 Ur Amphetamines Screen Presumptive negative 12/22/16 22:39 U Benzodiazepines Scrn Presumptive negative 12/22/16 22:39 Urine Cocaine Screen Presumptive negative 12/22/16 22:39 U Marijuana (THC) Screen Presumptive negative 12/22/16 22:39 Drugs of Abuse Note Disclamer 12/22/16 22:39 Plasma/Serum Alcohol < 0.01 gm% (0-0.07) 12/22/16 10:43 RPR Nonreactive (Nonreactive) 12/26/16 13:33 Blood Type A POSITIVE 12/22/16 18:53 Antibody Screen TNR 12/22/16 18:53 KAREN Antibody Screen Negative 12/22/16 18:53
[2016-12-28] MEDS: VIBRAMYCIN PO SCH ×2 (11:04→23:00)
[2016-12-28] MEDS: BACTRIM DS PO SCH (11:04)
[2016-12-28] MEDS: DARUNAVIR PO SCH (23:00)
[2016-12-28] MEDS: ZOCOR PO SCH (23:00)
[2016-12-28] MEDS: NON-FORMULARY (Emtricitab/Rilpiviri/Tenof Ala [Odefsey Tablet] 1 EACH) PO SCH (23:00)
[2016-12-28] MEDS: COBICISTAT PO SCH (23:00)
[2016-12-28] MEDS: NACL 0.9% 1000 ML 1,000 ML IV SCH (23:05)
[2016-12-29 05:37] LABS: Hematocrit 37.3 % (35.5-45.6); Hemoglobin 12.3 gm/dl (11.8-15.2); Mean Corpuscular HGB Conc 33 % (32-34); Mean Corpuscular Hemoglobin 30 pg (28-32); Mean Corpuscular Volume 90 fl (84-94); Platelet Count 250 K/mm3 (140-440); Red Blood Count 4.13 M/mm3 (3.65-5.03); Red Cell Distribution Width 17.1 % (13.2-15.2); White Blood Count 4.3 K/mm3 (4.5-11.0)
[2016-12-29 05:42] LABS: Anion Gap 14 mmol/L; Blood Urea Nitrogen 12 mg/dL (9-20); Calcium 7.5 mg/dL (8.4-10.2); Carbon Dioxide 22 mmol/L (22-30); Chloride 103.7 mmol/L (98-107); Glucose 83 mg/dL (75-100); Potassium 4.2 mmol/L (3.6-5.0); Sodium 135 mmol/L (137-145)
[2016-12-29] MEDS: VIBRAMYCIN PO SCH (10:24)
[2016-12-29] MEDS: BACTRIM DS PO SCH (10:24)
--- NOTE | 2016-12-29 10:27 | Progress Note ---
Assessment and Plan Assessment and plan: 36 YO M Hx HIV for many years on HAART p/w 10 days of progressive L sided weakness and difficulty w/ L sided vision. Clinical exam consistent with R hemispheric dense lesion. MRI Brain confirms extensive white matter disease of R temporparietaloccipital lobes, splenium of corpus callosum, and L occipital lobe w/o enhancement. 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 MRA head neg. * Acute metabolic encephalopathy * Decreased visual acuity possible opthalmoplegia * Hypotension * NICOTINE DEPENDENCE * AIDS * Acute CVA with infarct and LEFT SIDED HEMIPLEGIA * WHITE MATTER ABNORMALITY ON BRAIN MRI CONCERNING FOR PML,MALIGNANCY * SEBORRHEA * Dysphagia PLAN: * CONTINUE SUPPORTIVE CARE speech therapy input appreciated, changed to pureed diet * Await LP, should be done on 12/31 * LP DIAGNOSTIC- patient was on plavix and will need a week off PLAVIX for LP per Radiology * CONTINUE CURRENT THERAPY * FALL PRECAUTIONS * Discussed with ID * PLAN DISCUSSED WITH THE PATIENT * PT/OT EVAL AND TREAT * DVT/GI PROPHY History Interval history: his grandmother and father were in the room. He is slow to answer, they said that he is improved but still has R sided paralysis, lethargy and slow speech, they say that his dysphagia is improved Hospitalist Physical - Physical exam Narrative exam: VITAL SIGNS: Reviewed. GENERAL: The patient appeared well nourished and normally developed. Vital signs as documented. HEAD: No signs of head trauma. EYES: Pupils are equal. Visual impairment EARS: Hearing grossly intact. MOUTH: Oropharynx is normal. NECK: No adenopathy, no JVD. CHEST: Chest with clear breath sounds bilaterally. No wheezes, rales, or rhonchi. CARDIAC: Regular rate and rhythm. S1 and S2, without murmurs, gallops, or rubs. VASCULAR: No Edema. Peripheral pulses normal and equal in all extremities. ABDOMEN: Soft, without detectable tenderness. No sign of distention. No rebound or guarding, and no masses palpated. Bowel Sounds normal. MUSCULOSKELETAL: Noted range of motion on the left side Extremities without clubbing, cyanosis or edema. NEUROLOGIC EXAM: Right hemiplegia, speech is slow and appear to have trouble finding words, oriented x2 . Follows commands. PSYCHIATRIC: Mood normal. SKIN: Multiple skin induration subcarinal area, generalized lower extremity. - Constitutional Vitals: Temp Pulse Resp BP Pulse Ox 98.8 F 82 18 99/56 93 12/29/16 09:08 12/29/16 09:08 12/29/16 09:08 12/29/16 09:08 12/29/16 09:08 General appearance: Present: no acute distress Results - Labs CBC & Chem 7: 12/29/16 04:40 12/29/16 04:40 Labs: Laboratory Last Values WBC 4.3 K/mm3 (4.5-11.0) L 12/29/16 04:40 RBC 4.13 M/mm3 (3.65-5.03) 12/29/16 04:40 Hgb 12.3 gm/dl (11.8-15.2) 12/29/16 04:40 Hct 37.3 % (35.5-45.6) 12/29/16 04:40 MCV 90 fl (84-94) 12/29/16 04:40 MCH 30 pg (28-32) 12/29/16 04:40 MCHC 33 % (32-34) 12/29/16 04:40 RDW 17.1 % (13.2-15.2) H 12/29/16 04:40 Plt Count 250 K/mm3 (140-440) 12/29/16 04:40 Lymph % (Auto) 16.5 % (13.4-35.0) 12/22/16 10:43 [place] % (Auto) 7.7 % (0.0-7.3) H 12/22/16 10:43 Eos % (Auto) 2.4 % (0.0-4.3) 12/22/16 10:43 Baso % (Auto) 0.1 % (0.0-1.8) 12/22/16 10:43 Lymph # 0.7 K/mm3 (1.2-5.4) L 12/22/16 10:43 [place] # 0.3 K/mm3 (0.0-0.8) 12/22/16 10:43 Eos # 0.1 K/mm3 (0.0-0.4) 12/22/16 10:43 Baso # 0.0 K/mm3 (0.0-0.1) 12/22/16 10:43 Seg Neutrophils % 73.3 % (40.0-70.0) H 12/22/16 10:43 Seg Neutrophils # 3.2 K/mm3 (1.8-7.7) 12/22/16 10:43 PT 13.3 Sec. (12.2-14.9) 12/26/16 13:33 INR 1.02 (0.87-1.13) 12/26/16 13:33 APTT 29.0 Sec. (24.2-36.6) 12/26/16 13:33 Sodium 135 mmol/L (137-145) L 12/29/16 04:40 Potassium 4.2 mmol/L (3.6-5.0) 12/29/16 04:40 Chloride 103.7 mmol/L (98-107) 12/29/16 04:40 Carbon Dioxide 22 mmol/L (22-30) 12/29/16 04:40 Anion Gap 14 mmol/L 12/29/16 04:40 BUN 12 mg/dL (9-20) 12/29/16 04:40 Creatinine 0.6 mg/dL (0.8-1.5) L 12/29/16 04:40 Estimated GFR > 60 ml/min 12/29/16 04:40 BUN/Creatinine Ratio 20.00 % 12/29/16 04:40 Glucose 83 mg/dL (75-100) 12/29/16 04:40 POC Glucose 130 (70-105) H 12/23/16 21:35 Lactic Acid 0.90 mmol/L (0.7-2.0) 12/22/16 18:53 Calcium 7.5 mg/dL (8.4-10.2) L 12/29/16 04:40 Magnesium 1.80 mg/dL (1.7-2.3) 12/22/16 10:43 Total Bilirubin 0.20 mg/dL (0.1-1.2) 12/22/16 18:53 Direct Bilirubin < 0.2 mg/dL (0-0.2) 12/22/16 18:53 Indirect Bilirubin 0.0 mg/dL 12/22/16 18:53 AST 33 units/L (5-40) 12/22/16 18:53 ALT 33 units/L (7-56) 12/22/16 18:53 Alkaline Phosphatase 91 units/L (35-129) 12/22/16 18:53 Lactate Dehydrogenase 203 units/L (91-180) H 12/22/16 10:43 Troponin T < 0.010 ng/mL (0.00-0.029) 12/22/16 18:53 Total Protein 4.4 g/dL (6.3-8.2) L 12/22/16 18:53 Albumin 1.9 g/dL (3.9-5) L 12/22/16 18:53 Albumin/Globulin Ratio 0.8 % 12/22/16 18:53 Triglycerides 70 mg/dL (2-149) 12/23/16 07:30 Cholesterol 91 mg/dL (50-199) 12/23/16 07:30 LDL Cholesterol Direct 57 mg/dL (50-130) 12/23/16 07:30 HDL Cholesterol 20 mg/dL (40-59) L 12/23/16 07:30 Cholesterol/HDL Ratio 4.55 % 12/23/16 07:30 Urine Color Yellow (Yellow) 12/22/16 22:39 Urine Turbidity Clear (Clear) 12/22/16 22:39 Urine pH 6.0 (5.0-7.0) 12/22/16 22:39 Ur Specific [place] 1.020 (1.003-1.030) 12/22/16 22:39 Urine Protein <15 mg/dl mg/dL (Negative) 12/22/16 22:39 Urine Glucose (UA) Neg mg/dL (Negative) 12/22/16 22:39 Urine Ketones Neg mg/dL (Negative) 12/22/16 22:39 Urine Blood Neg (Negative) 12/22/16 22:39 Urine Nitrite Neg (Negative) 12/22/16 22:39 Urine Bilirubin Neg (Negative) 12/22/16 22:39 Urine Urobilinogen < 2.0 mg/dL (<2.0) 12/22/16 22:39 Ur Leukocyte Esterase Neg (Negative) 12/22/16 22:39 Urine WBC (Auto) 2.0 /HPF (0.0-6.0) 12/22/16 22:39 Urine RBC (Auto) 1.0 /HPF (0.0-6.0) 12/22/16 22:39 U Epithel Cells (Auto) < 1.0 /HPF (0-13.0) 12/22/16 22:39 Urine Mucus Few /HPF 12/22/16 22:39 Urine Opiates Screen Presumptive negative 12/22/16 22:39 Urine Methadone Screen Presumptive negative 12/22/16 22:39 Ur Barbiturates Screen Presumptive negative 12/22/16 22:39 Ur Phencyclidine Scrn Presumptive negative 12/22/16 22:39 Ur Amphetamines Screen Presumptive negative 12/22/16 22:39 U Benzodiazepines Scrn Presumptive negative 12/22/16 22:39 Urine Cocaine Screen Presumptive negative 12/22/16 22:39 U Marijuana (THC) Screen Presumptive negative 12/22/16 22:39 Drugs of Abuse Note Disclamer 12/22/16 22:39 Plasma/Serum Alcohol < 0.01 gm% (0-0.07) 12/22/16 10:43 RPR Nonreactive (Nonreactive) 12/26/16 13:33 Blood Type A POSITIVE 12/22/16 18:53 Antibody Screen TNR 12/22/16 18:53 KAREN Antibody Screen Negative 12/22/16 18:53
[2016-12-29] MEDS: NACL 0.9% 1000 ML 1,000 ML IV SCH ×2 (15:45→21:43)
[2016-12-29] MEDS: ZOCOR PO SCH (21:40)
[2016-12-29] MEDS: DARUNAVIR PO SCH (21:40)
[2016-12-29] MEDS: COBICISTAT PO SCH (21:40)
[2016-12-29] MEDS: NON-FORMULARY (Emtricitab/Rilpiviri/Tenof Ala [Odefsey Tablet] 1 EACH) PO SCH (21:42)
[2016-12-30 06:29] LABS: HIV-1 RNA QN PCR <1.30 Log cps/mL (<1.30); HIV-1 RNA QN PCR <20 copies/mL (<20)
[2016-12-30] MEDS: NACL 0.9% 1000 ML 1,000 ML IV SCH (07:26)
--- NOTE | 2016-12-30 09:09 | Progress Note ---
Assessment and Plan Assessment and plan: 36 YO M Hx HIV for many years on HAART p/w 10 days of progressive L sided weakness and difficulty w/ L sided vision. Clinical exam consistent with R hemispheric dense lesion. MRI Brain confirms extensive white matter disease of R temporparietaloccipital lobes, splenium of corpus callosum, and L occipital lobe w/o enhancement. 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 MRA head neg. * Acute metabolic encephalopathy * Decreased visual acuity possible opthalmoplegia * Hypotension * NICOTINE DEPENDENCE * AIDS * Acute CVA with infarct and Right SIDED HEMIPLEGIA * WHITE MATTER ABNORMALITY ON BRAIN MRI CONCERNING FOR PML,MALIGNANCY * SEBORRHEA * Dysphagia PLAN: * CONTINUE SUPPORTIVE CARE speech therapy input appreciated, changed to pureed diet * Await LP, should be done on 12/31 * LP DIAGNOSTIC- patient was on plavix and will need a week off PLAVIX for LP per Radiology * CONTINUE CURRENT THERAPY * FALL PRECAUTIONS * Discussed with ID * PLAN DISCUSSED WITH THE PATIENT * PT/OT EVAL AND TREAT * DVT/GI PROPHY History Interval history: his grandmother and father were in the room. He is slow to answer, they said that he is improved but still has R sided paralysis, lethargy and slow speech, they say that his dysphagia is improved Hospitalist Physical - Physical exam Narrative exam: VITAL SIGNS: Reviewed. GENERAL: The patient appeared well nourished and normally developed. Vital signs as documented. HEAD: No signs of head trauma. EYES: Pupils are equal. Visual impairment EARS: Hearing grossly intact. MOUTH: Oropharynx is normal. NECK: No adenopathy, no JVD. CHEST: Chest with clear breath sounds bilaterally. No wheezes, rales, or rhonchi. CARDIAC: Regular rate and rhythm. S1 and S2, without murmurs, gallops, or rubs. VASCULAR: No Edema. Peripheral pulses normal and equal in all extremities. ABDOMEN: Soft, without detectable tenderness. No sign of distention. No rebound or guarding, and no masses palpated. Bowel Sounds normal. MUSCULOSKELETAL: Noted range of motion on the left side Extremities without clubbing, cyanosis or edema. NEUROLOGIC EXAM: left hemiplegia, speech is slow and appear to have trouble finding words, oriented x2 . Follows commands. PSYCHIATRIC: Mood normal. SKIN: Multiple skin induration subcarinal area, generalized lower extremity. - Constitutional Vitals: Temp Pulse Resp BP Pulse Ox 98.9 F 76 18 98/62 98 12/30/16 04:35 12/30/16 04:35 12/30/16 04:35 12/30/16 04:35 12/30/16 04:35 General appearance: Present: no acute distress Results - Labs CBC & Chem 7: 12/29/16 04:40 12/29/16 04:40 Labs: Laboratory Last Values WBC 4.3 K/mm3 (4.5-11.0) L 12/29/16 04:40 RBC 4.13 M/mm3 (3.65-5.03) 12/29/16 04:40 Hgb 12.3 gm/dl (11.8-15.2) 12/29/16 04:40 Hct 37.3 % (35.5-45.6) 12/29/16 04:40 MCV 90 fl (84-94) 12/29/16 04:40 MCH 30 pg (28-32) 12/29/16 04:40 MCHC 33 % (32-34) 12/29/16 04:40 RDW 17.1 % (13.2-15.2) H 12/29/16 04:40 Plt Count 250 K/mm3 (140-440) 12/29/16 04:40 Lymph % (Auto) 16.5 % (13.4-35.0) 12/22/16 10:43 [place] % (Auto) 7.7 % (0.0-7.3) H 12/22/16 10:43 Eos % (Auto) 2.4 % (0.0-4.3) 12/22/16 10:43 Baso % (Auto) 0.1 % (0.0-1.8) 12/22/16 10:43 Lymph # 0.7 K/mm3 (1.2-5.4) L 12/22/16 10:43 [place] # 0.3 K/mm3 (0.0-0.8) 12/22/16 10:43 Eos # 0.1 K/mm3 (0.0-0.4) 12/22/16 10:43 Baso # 0.0 K/mm3 (0.0-0.1) 12/22/16 10:43 Seg Neutrophils % 73.3 % (40.0-70.0) H 12/22/16 10:43 Seg Neutrophils # 3.2 K/mm3 (1.8-7.7) 12/22/16 10:43 PT 13.3 Sec. (12.2-14.9) 12/26/16 13:33 INR 1.02 (0.87-1.13) 12/26/16 13:33 APTT 29.0 Sec. (24.2-36.6) 12/26/16 13:33 Sodium 135 mmol/L (137-145) L 12/29/16 04:40 Potassium 4.2 mmol/L (3.6-5.0) 12/29/16 04:40 Chloride 103.7 mmol/L (98-107) 12/29/16 04:40 Carbon Dioxide 22 mmol/L (22-30) 12/29/16 04:40 Anion Gap 14 mmol/L 12/29/16 04:40 BUN 12 mg/dL (9-20) 12/29/16 04:40 Creatinine 0.6 mg/dL (0.8-1.5) L 12/29/16 04:40 Estimated GFR > 60 ml/min 12/29/16 04:40 BUN/Creatinine Ratio 20.00 % 12/29/16 04:40 Glucose 83 mg/dL (75-100) 12/29/16 04:40 POC Glucose 130 (70-105) H 12/23/16 21:35 Lactic Acid 0.90 mmol/L (0.7-2.0) 12/22/16 18:53 Calcium 7.5 mg/dL (8.4-10.2) L 12/29/16 04:40 Magnesium 1.80 mg/dL (1.7-2.3) 12/22/16 10:43 Total Bilirubin 0.20 mg/dL (0.1-1.2) 12/22/16 18:53 Direct Bilirubin < 0.2 mg/dL (0-0.2) 12/22/16 18:53 Indirect Bilirubin 0.0 mg/dL 12/22/16 18:53 AST 33 units/L (5-40) 12/22/16 18:53 ALT 33 units/L (7-56) 12/22/16 18:53 Alkaline Phosphatase 91 units/L (35-129) 12/22/16 18:53 Lactate Dehydrogenase 203 units/L (91-180) H 12/22/16 10:43 Troponin T < 0.010 ng/mL (0.00-0.029) 12/22/16 18:53 Total Protein 4.4 g/dL (6.3-8.2) L 12/22/16 18:53 Albumin 1.9 g/dL (3.9-5) L 12/22/16 18:53 Albumin/Globulin Ratio 0.8 % 12/22/16 18:53 Triglycerides 70 mg/dL (2-149) 12/23/16 07:30 Cholesterol 91 mg/dL (50-199) 12/23/16 07:30 LDL Cholesterol Direct 57 mg/dL (50-130) 12/23/16 07:30 HDL Cholesterol 20 mg/dL (40-59) L 12/23/16 07:30 Cholesterol/HDL Ratio 4.55 % 12/23/16 07:30 Urine Color Yellow (Yellow) 12/22/16 22:39 Urine Turbidity Clear (Clear) 12/22/16 22:39 Urine pH 6.0 (5.0-7.0) 12/22/16 22:39 Ur Specific [place] 1.020 (1.003-1.030) 12/22/16 22:39 Urine Protein <15 mg/dl mg/dL (Negative) 12/22/16 22:39 Urine Glucose (UA) Neg mg/dL (Negative) 12/22/16 22:39 Urine Ketones Neg mg/dL (Negative) 12/22/16 22:39 Urine Blood Neg (Negative) 12/22/16 22:39 Urine Nitrite Neg (Negative) 12/22/16 22:39 Urine Bilirubin Neg (Negative) 12/22/16 22:39 Urine Urobilinogen < 2.0 mg/dL (<2.0) 12/22/16 22:39 Ur Leukocyte Esterase Neg (Negative) 12/22/16 22:39 Urine WBC (Auto) 2.0 /HPF (0.0-6.0) 12/22/16 22:39 Urine RBC (Auto) 1.0 /HPF (0.0-6.0) 12/22/16 22:39 U Epithel Cells (Auto) < 1.0 /HPF (0-13.0) 12/22/16 22:39 Urine Mucus Few /HPF 12/22/16 22:39 Urine Opiates Screen Presumptive negative 12/22/16 22:39 Urine Methadone Screen Presumptive negative 12/22/16 22:39 Ur Barbiturates Screen Presumptive negative 12/22/16 22:39 Ur Phencyclidine Scrn Presumptive negative 12/22/16 22:39 Ur Amphetamines Screen Presumptive negative 12/22/16 22:39 U Benzodiazepines Scrn Presumptive negative 12/22/16 22:39 Urine Cocaine Screen Presumptive negative 12/22/16 22:39 U Marijuana (THC) Screen Presumptive negative 12/22/16 22:39 Drugs of Abuse Note Disclamer 12/22/16 22:39 Plasma/Serum Alcohol < 0.01 gm% (0-0.07) 12/22/16 10:43 RPR Nonreactive (Nonreactive) 12/26/16 13:33 HIV-1 RNA PCR copies/ml <20 copies/mL (<20) 12/26/16 13:33 HIV-1 RNA (PCR) log <1.30 Log cps/mL (<1.30) 12/26/16 13:33 Blood Type A POSITIVE 12/22/16 18:53 Antibody Screen TNR 12/22/16 18:53 KAREN Antibody Screen Negative 12/22/16 18:53
[2016-12-30] MEDS: BACTRIM DS PO SCH (09:16)
--- NOTE | 2016-12-30 13:58 | Progress Note ---
Assessment and Plan - Patient Problems (1) AIDS Current Visit: Yes Status: Acute Plan to address problem: Clinical diagnosis. Await CD4 count. Continue HAART. (2) White matter abnormality on MRI of brain Current Visit: Yes Status: Acute Plan to address problem: Await LP and CSF analysis. (3) Seborrhea Current Visit: Yes Status: Acute Plan to address problem: Improved. Continue shampoo as needed. Subjective Date of service: 12/30/16 Interval history: No new clinical issues. Objective - Constitutional Vitals: Vital Signs Temp Pulse Resp BP Pulse Ox 97.6 F 77 18 91/60 97 12/30/16 13:36 12/30/16 13:36 12/30/16 13:36 12/30/16 13:36 12/30/16 13:36 Temperature -Last 24 Hours Temperature 97.6 F Temperature 98.1 F Temperature 98.9 F Temperature 99.9 F Temperature 98.9 F General appearance: Present: no acute distress - EENT ENT: no thrush - Neck Neck: supple - Respiratory Respiratory effort: normal - Cardiovascular Rhythm: regular - Gastrointestinal General gastrointestinal: Present: non-distended - Integumentary Integumentary: erythema (healing furuncles at left clavicle), no rash - Neurologic Neurologic: no moves all extremities (left-sided paresis) - Labs CBC & Chem 7: 12/29/16 04:40 12/29/16 04:40 Labs: Microbiology 12/22/16 21:24 Peripheral/Venous Blood Culture - Final NO GROWTH AFTER 5 DAYS 12/22/16 18:53 Peripheral/Venous Blood Culture - Final NO GROWTH AFTER 5 DAYS Active Medications Acetaminophen (Tylenol) 650 mg PO Q4H PRN PRN Reason: Pain, Mild (1-3) Albuterol (Proventil) 2.5 mg IH Q6HRT PRN PRN Reason: Shortness Of Breath Bisacodyl (Dulcolax) 10 mg AR QDAY PRN PRN Reason: Constipation Sodium Chloride (Nacl 0.9% 1000 Ml) 1,000 mls @ 125 mls/hr IV DIRECT JEROD Last Admin: 12/30/16 07:26 Dose: 125 mls/hr Magnesium Hydroxide (Milk Of Magnesia) 30 ml PO Q4H PRN PRN Reason: Constipation Metoclopramide HCl (Reglan) 10 mg PO Q6H PRN PRN Reason: Nausea And Vomiting Miscellaneous Medication (Darunavir/Cobicistat (Nf)) 1 tab PO QHS [facility] Last Admin: 12/29/16 21:40 Dose: 1 tab Miscellaneous Medication (Emtricitab/Rilpiviri/Tenof Ala [Odefsey Tablet]) 1 each PO QHS [facility] Last Admin: 12/29/16 21:42 Dose: 1 each Ondansetron HCl (Zofran) 4 mg IV Q8H PRN PRN Reason: N/V unrelieved by Reglan Promethazine HCl (Phenergan) 25 mg AR Q6H PRN PRN Reason: Nausea And Vomiting Selenium Sulfide (Selsun) 1 applic TP 2XW PRN PRN Reason: Seborrhea Simvastatin (Zocor) 20 mg PO QHS [facility] Last Admin: 12/29/16 21:40 Dose: 20 mg Sodium Chloride (Sodium Chloride Flush Syringe 10 Ml) 10 ml IV PRN PRN PRN Reason: LINE FLUSH Trimethoprim/Sulfamethoxazole (Bactrim Ds) 1 each PO DAILY [facility] Last Admin: 12/30/16 09:16 Dose: 1 each
[2016-12-30] MEDS: ZOCOR PO SCH (21:11)
[2016-12-30] MEDS: NON-FORMULARY (Emtricitab/Rilpiviri/Tenof Ala [Odefsey Tablet] 1 EACH) PO SCH (21:12)
[2016-12-30] MEDS: DARUNAVIR PO SCH (21:12)
[2016-12-30] MEDS: COBICISTAT PO SCH (21:12)
[2016-12-31] MEDS: NACL 0.9% 1000 ML 1,000 ML IV SCH (01:34)
--- NOTE | 2016-12-31 09:02 | Progress Note ---
Assessment and Plan Assessment and plan: 36 YO M Hx HIV for many years on HAART p/w 10 days of progressive L sided weakness and difficulty w/ L sided vision. Clinical exam consistent with R hemispheric dense lesion. MRI Brain confirms extensive white matter disease of R temporparietaloccipital lobes, splenium of corpus callosum, and L occipital lobe w/o enhancement. 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 MRA head neg. * Acute metabolic encephalopathy * Left hemiplegia, and aphasia * Decreased visual acuity possible opthalmoplegia * Hypotension * NICOTINE DEPENDENCE * AIDS * Acute CVA with infarct and LEFT SIDED HEMIPLEGIA * WHITE MATTER ABNORMALITY ON BRAIN MRI CONCERNING FOR PML,MALIGNANCY * SEBORRHEA * Dysphagia PLAN: * CONTINUE SUPPORTIVE CARE speech therapy input appreciated, changed to pureed diet * Await LP on 01/02/17- which will be 7 days after last dose of plavix * LP DIAGNOSTIC- patient was on plavix and will need a week off PLAVIX for LP per Radiology * Continue HAART * fup CD4 count * FALL PRECAUTIONS * Discussed with ID * PLAN DISCUSSED WITH THE PATIENT * PT/OT EVAL AND TREAT * DVT/GI PROPHY History Interval history: his grandmother and father were in the room. He is slow to answer, they said that he is improved but still has R sided paralysis, lethargy and slow speech, they say that his dysphagia is improved Hospitalist Physical - Physical exam Narrative exam: VITAL SIGNS: Reviewed. GENERAL: The patient appeared well nourished and normally developed. Vital signs as documented. HEAD: No signs of head trauma. EYES: Pupils are equal. Visual impairment EARS: Hearing grossly intact. MOUTH: Oropharynx is normal. NECK: No adenopathy, no JVD. CHEST: Chest with clear breath sounds bilaterally. No wheezes, rales, or rhonchi. CARDIAC: Regular rate and rhythm. S1 and S2, without murmurs, gallops, or rubs. VASCULAR: No Edema. Peripheral pulses normal and equal in all extremities. ABDOMEN: Soft, without detectable tenderness. No sign of distention. No rebound or guarding, and no masses palpated. Bowel Sounds normal. MUSCULOSKELETAL: Noted range of motion on the left side Extremities without clubbing, cyanosis or edema. NEUROLOGIC EXAM: left hemiplegia, speech is slow and appear to have trouble finding words, oriented x2 . Follows commands. PSYCHIATRIC: Mood normal. SKIN: Multiple skin induration subcarinal area, generalized lower extremity. - Constitutional Vitals: Temp Pulse Resp BP Pulse Ox 98.2 F 76 18 97/61 96 12/31/16 05:49 12/31/16 05:49 12/31/16 05:49 12/31/16 05:49 12/31/16 05:49 General appearance: Present: no acute distress Results - Labs CBC & Chem 7: 12/29/16 04:40 12/29/16 04:40 Labs: Laboratory Last Values WBC 4.3 K/mm3 (4.5-11.0) L 12/29/16 04:40 RBC 4.13 M/mm3 (3.65-5.03) 12/29/16 04:40 Hgb 12.3 gm/dl (11.8-15.2) 12/29/16 04:40 Hct 37.3 % (35.5-45.6) 12/29/16 04:40 MCV 90 fl (84-94) 12/29/16 04:40 MCH 30 pg (28-32) 12/29/16 04:40 MCHC 33 % (32-34) 12/29/16 04:40 RDW 17.1 % (13.2-15.2) H 12/29/16 04:40 Plt Count 250 K/mm3 (140-440) 12/29/16 04:40 Lymph % (Auto) 16.5 % (13.4-35.0) 12/22/16 10:43 [place] % (Auto) 7.7 % (0.0-7.3) H 12/22/16 10:43 Eos % (Auto) 2.4 % (0.0-4.3) 12/22/16 10:43 Baso % (Auto) 0.1 % (0.0-1.8) 12/22/16 10:43 Lymph # 0.7 K/mm3 (1.2-5.4) L 12/22/16 10:43 [place] # 0.3 K/mm3 (0.0-0.8) 12/22/16 10:43 Eos # 0.1 K/mm3 (0.0-0.4) 12/22/16 10:43 Baso # 0.0 K/mm3 (0.0-0.1) 12/22/16 10:43 Seg Neutrophils % 73.3 % (40.0-70.0) H 12/22/16 10:43 Seg Neutrophils # 3.2 K/mm3 (1.8-7.7) 12/22/16 10:43 PT 13.3 Sec. (12.2-14.9) 12/26/16 13:33 INR 1.02 (0.87-1.13) 12/26/16 13:33 APTT 29.0 Sec. (24.2-36.6) 12/26/16 13:33 Sodium 135 mmol/L (137-145) L 12/29/16 04:40 Potassium 4.2 mmol/L (3.6-5.0) 12/29/16 04:40 Chloride 103.7 mmol/L (98-107) 12/29/16 04:40 Carbon Dioxide 22 mmol/L (22-30) 12/29/16 04:40 Anion Gap 14 mmol/L 12/29/16 04:40 BUN 12 mg/dL (9-20) 12/29/16 04:40 Creatinine 0.6 mg/dL (0.8-1.5) L 12/29/16 04:40 Estimated GFR > 60 ml/min 12/29/16 04:40 BUN/Creatinine Ratio 20.00 % 12/29/16 04:40 Glucose 83 mg/dL (75-100) 12/29/16 04:40 POC Glucose 130 (70-105) H 12/23/16 21:35 Lactic Acid 0.90 mmol/L (0.7-2.0) 12/22/16 18:53 Calcium 7.5 mg/dL (8.4-10.2) L 12/29/16 04:40 Magnesium 1.80 mg/dL (1.7-2.3) 12/22/16 10:43 Total Bilirubin 0.20 mg/dL (0.1-1.2) 12/22/16 18:53 Direct Bilirubin < 0.2 mg/dL (0-0.2) 12/22/16 18:53 Indirect Bilirubin 0.0 mg/dL 12/22/16 18:53 AST 33 units/L (5-40) 12/22/16 18:53 ALT 33 units/L (7-56) 12/22/16 18:53 Alkaline Phosphatase 91 units/L (35-129) 12/22/16 18:53 Lactate Dehydrogenase 203 units/L (91-180) H 12/22/16 10:43 Troponin T < 0.010 ng/mL (0.00-0.029) 12/22/16 18:53 Total Protein 4.4 g/dL (6.3-8.2) L 12/22/16 18:53 Albumin 1.9 g/dL (3.9-5) L 12/22/16 18:53 Albumin/Globulin Ratio 0.8 % 12/22/16 18:53 Triglycerides 70 mg/dL (2-149) 12/23/16 07:30 Cholesterol 91 mg/dL (50-199) 12/23/16 07:30 LDL Cholesterol Direct 57 mg/dL (50-130) 12/23/16 07:30 HDL Cholesterol 20 mg/dL (40-59) L 12/23/16 07:30 Cholesterol/HDL Ratio 4.55 % 12/23/16 07:30 Urine Color Yellow (Yellow) 12/22/16 22:39 Urine Turbidity Clear (Clear) 12/22/16 22:39 Urine pH 6.0 (5.0-7.0) 12/22/16 22:39 Ur Specific [place] 1.020 (1.003-1.030) 12/22/16 22:39 Urine Protein <15 mg/dl mg/dL (Negative) 12/22/16 22:39 Urine Glucose (UA) Neg mg/dL (Negative) 12/22/16 22:39 Urine Ketones Neg mg/dL (Negative) 12/22/16 22:39 Urine Blood Neg (Negative) 12/22/16 22:39 Urine Nitrite Neg (Negative) 12/22/16 22:39 Urine Bilirubin Neg (Negative) 12/22/16 22:39 Urine Urobilinogen < 2.0 mg/dL (<2.0) 12/22/16 22:39 Ur Leukocyte Esterase Neg (Negative) 12/22/16 22:39 Urine WBC (Auto) 2.0 /HPF (0.0-6.0) 12/22/16 22:39 Urine RBC (Auto) 1.0 /HPF (0.0-6.0) 12/22/16 22:39 U Epithel Cells (Auto) < 1.0 /HPF (0-13.0) 12/22/16 22:39 Urine Mucus Few /HPF 12/22/16 22:39 Urine Opiates Screen Presumptive negative 12/22/16 22:39 Urine Methadone Screen Presumptive negative 12/22/16 22:39 Ur Barbiturates Screen Presumptive negative 12/22/16 22:39 Ur Phencyclidine Scrn Presumptive negative 12/22/16 22:39 Ur Amphetamines Screen Presumptive negative 12/22/16 22:39 U Benzodiazepines Scrn Presumptive negative 12/22/16 22:39 Urine Cocaine Screen Presumptive negative 12/22/16 22:39 U Marijuana (THC) Screen Presumptive negative 12/22/16 22:39 Drugs of Abuse Note Disclamer 12/22/16 22:39 Plasma/Serum Alcohol < 0.01 gm% (0-0.07) 12/22/16 10:43 RPR Nonreactive (Nonreactive) 12/26/16 13:33 HIV-1 RNA PCR copies/ml <20 copies/mL (<20) 12/26/16 13:33 HIV-1 RNA (PCR) log <1.30 Log cps/mL (<1.30) 12/26/16 13:33 Blood Type A POSITIVE 12/22/16 18:53 Antibody Screen TNR 12/22/16 18:53 KAREN Antibody Screen Negative 12/22/16 18:53
[2016-12-31] MEDS: BACTRIM DS PO SCH (09:23)
[2016-12-31 18:21] LABS: Hematocrit 40.6 % (35.5-45.6); Hemoglobin 13.7 gm/dl (11.8-15.2); Mean Corpuscular HGB Conc 34 % (32-34); Mean Corpuscular Hemoglobin 30 pg (28-32); Mean Corpuscular Volume 90 fl (84-94); Platelet Count 276 K/mm3 (140-440); Red Cell Distribution Width 17.2 % (13.2-15.2); White Blood Count 5.3 K/mm3 (4.5-11.0)
[2016-12-31 18:29] LABS: Anion Gap 14 mmol/L; BUN/Creatinine Ratio 16.66; Blood Urea Nitrogen 10 mg/dL (9-20); Calcium 7.9 mg/dL (8.4-10.2); Carbon Dioxide 23 mmol/L (22-30); Chloride 101.3 mmol/L (98-107); Glucose 126 mg/dL (75-100); Potassium 4.2 mmol/L (3.6-5.0); Sodium 134 mmol/L (137-145)
[2016-12-31] MEDS: ZOCOR PO SCH (22:20)
[2016-12-31] MEDS: DARUNAVIR PO SCH (22:24)
[2016-12-31] MEDS: COBICISTAT PO SCH (22:24)
[2016-12-31] MEDS: NON-FORMULARY (Emtricitab/Rilpiviri/Tenof Ala [Odefsey Tablet] 1 EACH) PO SCH (22:24)
[2017-01-01] MEDS: NACL 0.9% 1000 ML 1,000 ML IV SCH ×2 (07:25→22:11)
[2017-01-01] MEDS: BACTRIM DS PO SCH (10:33)
--- NOTE | 2017-01-01 11:15 | Hem/Onc Progress Note ---
Assessment and Plan For lumbar puncture tomorrow. Continue supportive care. Subjective Date of service: 01/01/17 Interval history: Patient feels fair. Continues to have the left-sided weakness. 4 lumbar puncture tomorrow Objective - Constitutional Vitals: Last Vital Signs Temp 97.8 F 01/01/17 09:45 Pulse 72 01/01/17 09:45 Resp 16 01/01/17 09:45 BP 98/61 01/01/17 09:45 Pulse Ox 95 01/01/17 09:45 General appearance: no acute distress Performance status: 3-limited selfcare - Neck Neck: supple - Respiratory Respiratory effort: Positive: normal - Cardiovascular Rhythm: regular - Gastrointestinal General gastrointestinal: Present: soft - Labs Lab Results: Laboratory Results - last 24 hr 12/26/16 12/31/16 12/31/16 13:33 18:01 18:01 WBC 5.3 RBC 4.50 Hgb 13.7 Hct 40.6 MCV 90 MCH 30 MCHC 34 RDW 17.2 H Plt Count 276 Abs Lymphs (Manual) 800 L Sodium 134 L Potassium 4.2 Chloride 101.3 Carbon Dioxide 23 Anion Gap 14 BUN 10 Creatinine 0.6 L Estimated GFR > 60 BUN/Creatinine Ratio 16.66 Glucose 126 H Calcium 7.9 L Lymph Enumerat CD4/CD8 0.08 L % CD3 Cells 84 Absolute CD3 Count 668 L % CD4 Cells 6 L Absolute CD4 Count 50 L % CD8 Cells 78 H Absolute CD8 Count 636 % CD19 Cells 10 Absolute CD19 Count 79 L
--- NOTE | 2017-01-01 14:34 | Progress Note ---
Assessment and Plan Assessment and plan: 36 YO M Hx HIV for many years on HAART p/w 10 days of progressive L sided weakness and difficulty w/ L sided vision. Clinical exam consistent with R hemispheric dense lesion. MRI Brain confirms extensive white matter disease of R temporparietaloccipital lobes, splenium of corpus callosum, and L occipital lobe w/o enhancement. I suspect PML but EXHIBITION CARVER lymphoma in the differential. MRA head neg. * Acute metabolic encephalopathy * Left hemiplegia, and aphasia * Decreased visual acuity possible opthalmoplegia * Hypotension * NICOTINE DEPENDENCE * AIDS * Acute CVA with infarct and LEFT SIDED HEMIPLEGIA * WHITE MATTER ABNORMALITY ON BRAIN MRI CONCERNING FOR PML,MALIGNANCY * SEBORRHEA * Dysphagia PLAN: * CONTINUE SUPPORTIVE CARE speech therapy input appreciated, changed to pureed diet * for LP on 01/02/17- which will be 7 days after last dose of plavix * LP DIAGNOSTIC- patient was on plavix and will need a week off PLAVIX for LP per Radiology * Continue HAART * fup CD4 count * FALL PRECAUTIONS * Discussed with ID * PLAN DISCUSSED WITH THE PATIENT * PT/OT EVAL AND TREAT * DVT/GI PROPHY History Interval history: no events overnight, dysphagia and hemiplegia are improving Hospitalist Physical - Physical exam Narrative exam: VITAL SIGNS: Reviewed. GENERAL: The patient appeared well nourished and normally developed. Vital signs as documented. HEAD: No signs of head trauma. EYES: Pupils are equal. Visual impairment EARS: Hearing grossly intact. MOUTH: Oropharynx is normal. NECK: No adenopathy, no JVD. CHEST: Chest with clear breath sounds bilaterally. No wheezes, rales, or rhonchi. CARDIAC: Regular rate and rhythm. S1 and S2, without murmurs, gallops, or rubs. VASCULAR: No Edema. Peripheral pulses normal and equal in all extremities. ABDOMEN: Soft, without detectable tenderness. No sign of distention. No rebound or guarding, and no masses palpated. Bowel Sounds normal. MUSCULOSKELETAL: Noted range of motion on the left side Extremities without clubbing, cyanosis or edema. NEUROLOGIC EXAM: left hemiplegia, speech is slow and appear to have trouble finding words, oriented x2 . Follows commands. PSYCHIATRIC: Mood normal. SKIN: Multiple skin induration subcarinal area, generalized lower extremity. - Constitutional Vitals: Temp Pulse Resp BP Pulse Ox 97.8 F 72 16 98/61 95 01/01/17 09:45 01/01/17 09:45 01/01/17 09:45 01/01/17 09:45 01/01/17 09:45 General appearance: Present: no acute distress Results - Labs CBC & Chem 7: 12/31/16 18:01 12/31/16 18:01 Labs: Laboratory Last Values WBC 5.3 K/mm3 (4.5-11.0) 12/31/16 18:01 RBC 4.50 M/mm3 (3.65-5.03) 12/31/16 18:01 Hgb 13.7 gm/dl (11.8-15.2) 12/31/16 18:01 Hct 40.6 % (35.5-45.6) 12/31/16 18:01 MCV 90 fl (84-94) 12/31/16 18:01 MCH 30 pg (28-32) 12/31/16 18:01 MCHC 34 % (32-34) 12/31/16 18:01 RDW 17.2 % (13.2-15.2) H 12/31/16 18:01 Plt Count 276 K/mm3 (140-440) 12/31/16 18:01 Lymph % (Auto) 16.5 % (13.4-35.0) 12/22/16 10:43 [place] % (Auto) 7.7 % (0.0-7.3) H 12/22/16 10:43 Eos % (Auto) 2.4 % (0.0-4.3) 12/22/16 10:43 Baso % (Auto) 0.1 % (0.0-1.8) 12/22/16 10:43 Lymph # 0.7 K/mm3 (1.2-5.4) L 12/22/16 10:43 [place] # 0.3 K/mm3 (0.0-0.8) 12/22/16 10:43 Eos # 0.1 K/mm3 (0.0-0.4) 12/22/16 10:43 Baso # 0.0 K/mm3 (0.0-0.1) 12/22/16 10:43 Seg Neutrophils % 73.3 % (40.0-70.0) H 12/22/16 10:43 Seg Neutrophils # 3.2 K/mm3 (1.8-7.7) 12/22/16 10:43 Abs Lymphs (Manual) 800 cells/uL (850-3900) L 12/26/16 13:33 PT 13.3 Sec. (12.2-14.9) 12/26/16 13:33 INR 1.02 (0.87-1.13) 12/26/16 13:33 APTT 29.0 Sec. (24.2-36.6) 12/26/16 13:33 Sodium 134 mmol/L (137-145) L 12/31/16 18:01 Potassium 4.2 mmol/L (3.6-5.0) 12/31/16 18:01 Chloride 101.3 mmol/L (98-107) 12/31/16 18:01 Carbon Dioxide 23 mmol/L (22-30) 12/31/16 18:01 Anion Gap 14 mmol/L 12/31/16 18:01 BUN 10 mg/dL (9-20) 12/31/16 18:01 Creatinine 0.6 mg/dL (0.8-1.5) L 12/31/16 18:01 Estimated GFR > 60 ml/min 12/31/16 18:01 BUN/Creatinine Ratio 16.66 % 12/31/16 18:01 Glucose 126 mg/dL (75-100) H 12/31/16 18:01 POC Glucose 130 (70-105) H 12/23/16 21:35 Lactic Acid 0.90 mmol/L (0.7-2.0) 12/22/16 18:53 Calcium 7.9 mg/dL (8.4-10.2) L 12/31/16 18:01 Magnesium 1.80 mg/dL (1.7-2.3) 12/22/16 10:43 Total Bilirubin 0.20 mg/dL (0.1-1.2) 12/22/16 18:53 Direct Bilirubin < 0.2 mg/dL (0-0.2) 12/22/16 18:53 Indirect Bilirubin 0.0 mg/dL 12/22/16 18:53 AST 33 units/L (5-40) 12/22/16 18:53 ALT 33 units/L (7-56) 12/22/16 18:53 Alkaline Phosphatase 91 units/L (35-129) 12/22/16 18:53 Lactate Dehydrogenase 203 units/L (91-180) H 12/22/16 10:43 Troponin T < 0.010 ng/mL (0.00-0.029) 12/22/16 18:53 Total Protein 4.4 g/dL (6.3-8.2) L 12/22/16 18:53 Albumin 1.9 g/dL (3.9-5) L 12/22/16 18:53 Albumin/Globulin Ratio 0.8 % 12/22/16 18:53 Triglycerides 70 mg/dL (2-149) 12/23/16 07:30 Cholesterol 91 mg/dL (50-199) 12/23/16 07:30 LDL Cholesterol Direct 57 mg/dL (50-130) 12/23/16 07:30 HDL Cholesterol 20 mg/dL (40-59) L 12/23/16 07:30 Cholesterol/HDL Ratio 4.55 % 12/23/16 07:30 Urine Color Yellow (Yellow) 12/22/16 22:39 Urine Turbidity Clear (Clear) 12/22/16 22:39 Urine pH 6.0 (5.0-7.0) 12/22/16 22:39 Ur Specific [place] 1.020 (1.003-1.030) 12/22/16 22:39 Urine Protein <15 mg/dl mg/dL (Negative) 12/22/16 22:39 Urine Glucose (UA) Neg mg/dL (Negative) 12/22/16 22:39 Urine Ketones Neg mg/dL (Negative) 12/22/16 22:39 Urine Blood Neg (Negative) 12/22/16 22:39 Urine Nitrite Neg (Negative) 12/22/16 22:39 Urine Bilirubin Neg (Negative) 12/22/16 22:39 Urine Urobilinogen < 2.0 mg/dL (<2.0) 12/22/16 22:39 Ur Leukocyte Esterase Neg (Negative) 12/22/16 22:39 Urine WBC (Auto) 2.0 /HPF (0.0-6.0) 12/22/16 22:39 Urine RBC (Auto) 1.0 /HPF (0.0-6.0) 12/22/16 22:39 U Epithel Cells (Auto) < 1.0 /HPF (0-13.0) 12/22/16 22:39 Urine Mucus Few /HPF 12/22/16 22:39 Urine Opiates Screen Presumptive negative 12/22/16 22:39 Urine Methadone Screen Presumptive negative 12/22/16 22:39 Ur Barbiturates Screen Presumptive negative 12/22/16 22:39 Ur Phencyclidine Scrn Presumptive negative 12/22/16 22:39 Ur Amphetamines Screen Presumptive negative 12/22/16 22:39 U Benzodiazepines Scrn Presumptive negative 12/22/16 22:39 Urine Cocaine Screen Presumptive negative 12/22/16 22:39 U Marijuana (THC) Screen Presumptive negative 12/22/16 22:39 Drugs of Abuse Note Disclamer 12/22/16 22:39 Plasma/Serum Alcohol < 0.01 gm% (0-0.07) 12/22/16 10:43 Lymph Enumerat CD4/CD8 0.08 (0.86-5.00) L 12/26/16 13:33 % CD3 Cells 84 % (57-85) 12/26/16 13:33 Absolute CD3 Count 668 cells/uL (840-3060) L 12/26/16 13:33 % CD4 Cells 6 % (30-61) L 12/26/16 13:33 Absolute CD4 Count 50 cells/uL (490-1740) L 12/26/16 13:33 % CD8 Cells 78 % (12-42) H 12/26/16 13:33 Absolute CD8 Count 636 cells/uL (180-1170) 12/26/16 13:33 % CD19 Cells 10 % (6-29) 12/26/16 13:33 Absolute CD19 Count 79 cells/uL (110-660) L 12/26/16 13:33 RPR Nonreactive (Nonreactive) 12/26/16 13:33 HIV-1 RNA PCR copies/ml <20 copies/mL (<20) 12/26/16 13:33 HIV-1 RNA (PCR) log <1.30 Log cps/mL (<1.30) 12/26/16 13:33 Blood Type A POSITIVE 12/22/16 18:53 Antibody Screen TNR 12/22/16 18:53 KAREN Antibody Screen Negative 12/22/16 18:53
[2017-01-01 20:19] LABS: TOXOPLASMA IGM AB Negative (Negative)
[2017-01-01] MEDS: ZOCOR PO SCH (22:12)
[2017-01-01] MEDS: DARUNAVIR PO SCH (22:12)
[2017-01-01] MEDS: COBICISTAT PO SCH (22:12)
[2017-01-01] MEDS: NON-FORMULARY (Emtricitab/Rilpiviri/Tenof Ala [Odefsey Tablet] 1 EACH) PO SCH (22:12)
--- NOTE | 2017-01-02 08:05 | Progress Note ---
Assessment and Plan Assessment and plan: 36 YO M Hx HIV for many years on HAART p/w 10 days of progressive L sided weakness and difficulty w/ L sided vision. Clinical exam consistent with R hemispheric dense lesion. MRI Brain confirms extensive white matter disease of R temporparietaloccipital lobes, splenium of corpus callosum, and L occipital lobe w/o enhancement. I suspect PML but DIGITAL ARCHIVIST lymphoma in the differential. MRA head neg. * Acute metabolic encephalopathy * Left hemiplegia, and aphasia * Decreased visual acuity possible opthalmoplegia * Hypotension * NICOTINE DEPENDENCE * AIDS * Acute CVA with infarct and LEFT SIDED HEMIPLEGIA * WHITE MATTER ABNORMALITY ON BRAIN MRI CONCERNING FOR PML,MALIGNANCY * SEBORRHEA * Dysphagia PLAN: * CONTINUE SUPPORTIVE CARE speech therapy input appreciated, changed to pureed diet * for LP today- which will be 7 days after last dose of plavix * Continue HAART * Cd4 count is 50, on bactrim for PCP and Toxoplasmosis ppx * FALL PRECAUTIONS * Discussed with ID * PLAN DISCUSSED WITH THE PATIENT * PT/OT EVAL AND TREAT * DVT/GI PROPHY History Interval history: no events overnight, dysphagia and hemiplegia are improving Hospitalist Physical - Physical exam Narrative exam: VITAL SIGNS: Reviewed. GENERAL: The patient appeared well nourished and normally developed. Vital signs as documented. HEAD: No signs of head trauma. EYES: Pupils are equal. Visual impairment EARS: Hearing grossly intact. MOUTH: Oropharynx is normal. NECK: No adenopathy, no JVD. CHEST: Chest with clear breath sounds bilaterally. No wheezes, rales, or rhonchi. CARDIAC: Regular rate and rhythm. S1 and S2, without murmurs, gallops, or rubs. VASCULAR: No Edema. Peripheral pulses normal and equal in all extremities. ABDOMEN: Soft, without detectable tenderness. No sign of distention. No rebound or guarding, and no masses palpated. Bowel Sounds normal. MUSCULOSKELETAL: Noted range of motion on the left side Extremities without clubbing, cyanosis or edema. NEUROLOGIC EXAM: left hemiplegia, speech is slow and appear to have trouble finding words, oriented x2 . Follows commands. PSYCHIATRIC: Mood normal. SKIN: Multiple skin induration subcarinal area, generalized lower extremity. - Constitutional Vitals: Temp Pulse Resp BP Pulse Ox 64.5 F L 74 19 91/57 97 01/02/17 05:59 01/02/17 05:59 01/02/17 05:59 01/02/17 05:59 01/02/17 05:59 General appearance: Present: no acute distress Results - Labs CBC & Chem 7: 12/31/16 18:01 12/31/16 18:01 Labs: Laboratory Last Values WBC 5.3 K/mm3 (4.5-11.0) 12/31/16 18:01 RBC 4.50 M/mm3 (3.65-5.03) 12/31/16 18:01 Hgb 13.7 gm/dl (11.8-15.2) 12/31/16 18:01 Hct 40.6 % (35.5-45.6) 12/31/16 18:01 MCV 90 fl (84-94) 12/31/16 18:01 MCH 30 pg (28-32) 12/31/16 18:01 MCHC 34 % (32-34) 12/31/16 18:01 RDW 17.2 % (13.2-15.2) H 12/31/16 18:01 Plt Count 276 K/mm3 (140-440) 12/31/16 18:01 Lymph % (Auto) 16.5 % (13.4-35.0) 12/22/16 10:43 [place] % (Auto) 7.7 % (0.0-7.3) H 12/22/16 10:43 Eos % (Auto) 2.4 % (0.0-4.3) 12/22/16 10:43 Baso % (Auto) 0.1 % (0.0-1.8) 12/22/16 10:43 Lymph # 0.7 K/mm3 (1.2-5.4) L 12/22/16 10:43 [place] # 0.3 K/mm3 (0.0-0.8) 12/22/16 10:43 Eos # 0.1 K/mm3 (0.0-0.4) 12/22/16 10:43 Baso # 0.0 K/mm3 (0.0-0.1) 12/22/16 10:43 Seg Neutrophils % 73.3 % (40.0-70.0) H 12/22/16 10:43 Seg Neutrophils # 3.2 K/mm3 (1.8-7.7) 12/22/16 10:43 Abs Lymphs (Manual) 800 cells/uL (850-3900) L 12/26/16 13:33 PT 13.3 Sec. (12.2-14.9) 12/26/16 13:33 INR 1.02 (0.87-1.13) 12/26/16 13:33 APTT 29.0 Sec. (24.2-36.6) 12/26/16 13:33 Sodium 134 mmol/L (137-145) L 12/31/16 18:01 Potassium 4.2 mmol/L (3.6-5.0) 12/31/16 18:01 Chloride 101.3 mmol/L (98-107) 12/31/16 18:01 Carbon Dioxide 23 mmol/L (22-30) 12/31/16 18:01 Anion Gap 14 mmol/L 12/31/16 18:01 BUN 10 mg/dL (9-20) 12/31/16 18:01 Creatinine 0.6 mg/dL (0.8-1.5) L 12/31/16 18:01 Estimated GFR > 60 ml/min 12/31/16 18:01 BUN/Creatinine Ratio 16.66 % 12/31/16 18:01 Glucose 126 mg/dL (75-100) H 12/31/16 18:01 POC Glucose 130 (70-105) H 12/23/16 21:35 Lactic Acid 0.90 mmol/L (0.7-2.0) 12/22/16 18:53 Calcium 7.9 mg/dL (8.4-10.2) L 12/31/16 18:01 Magnesium 1.80 mg/dL (1.7-2.3) 12/22/16 10:43 Total Bilirubin 0.20 mg/dL (0.1-1.2) 12/22/16 18:53 Direct Bilirubin < 0.2 mg/dL (0-0.2) 12/22/16 18:53 Indirect Bilirubin 0.0 mg/dL 12/22/16 18:53 AST 33 units/L (5-40) 12/22/16 18:53 ALT 33 units/L (7-56) 12/22/16 18:53 Alkaline Phosphatase 91 units/L (35-129) 12/22/16 18:53 Lactate Dehydrogenase 203 units/L (91-180) H 12/22/16 10:43 Troponin T < 0.010 ng/mL (0.00-0.029) 12/22/16 18:53 Total Protein 4.4 g/dL (6.3-8.2) L 12/22/16 18:53 Albumin 1.9 g/dL (3.9-5) L 12/22/16 18:53 Albumin/Globulin Ratio 0.8 % 12/22/16 18:53 Triglycerides 70 mg/dL (2-149) 12/23/16 07:30 Cholesterol 91 mg/dL (50-199) 12/23/16 07:30 LDL Cholesterol Direct 57 mg/dL (50-130) 12/23/16 07:30 HDL Cholesterol 20 mg/dL (40-59) L 12/23/16 07:30 Cholesterol/HDL Ratio 4.55 % 12/23/16 07:30 Urine Color Yellow (Yellow) 12/22/16 22:39 Urine Turbidity Clear (Clear) 12/22/16 22:39 Urine pH 6.0 (5.0-7.0) 12/22/16 22:39 Ur Specific [place] 1.020 (1.003-1.030) 12/22/16 22:39 Urine Protein <15 mg/dl mg/dL (Negative) 12/22/16 22:39 Urine Glucose (UA) Neg mg/dL (Negative) 12/22/16 22:39 Urine Ketones Neg mg/dL (Negative) 12/22/16 22:39 Urine Blood Neg (Negative) 12/22/16 22:39 Urine Nitrite Neg (Negative) 12/22/16 22:39 Urine Bilirubin Neg (Negative) 12/22/16 22:39 Urine Urobilinogen < 2.0 mg/dL (<2.0) 12/22/16 22:39 Ur Leukocyte Esterase Neg (Negative) 12/22/16 22:39 Urine WBC (Auto) 2.0 /HPF (0.0-6.0) 12/22/16 22:39 Urine RBC (Auto) 1.0 /HPF (0.0-6.0) 12/22/16 22:39 U Epithel Cells (Auto) < 1.0 /HPF (0-13.0) 12/22/16 22:39 Urine Mucus Few /HPF 12/22/16 22:39 Urine Opiates Screen Presumptive negative 12/22/16 22:39 Urine Methadone Screen Presumptive negative 12/22/16 22:39 Ur Barbiturates Screen Presumptive negative 12/22/16 22:39 Ur Phencyclidine Scrn Presumptive negative 12/22/16 22:39 Ur Amphetamines Screen Presumptive negative 12/22/16 22:39 U Benzodiazepines Scrn Presumptive negative 12/22/16 22:39 Urine Cocaine Screen Presumptive negative 12/22/16 22:39 U Marijuana (THC) Screen Presumptive negative 12/22/16 22:39 Drugs of Abuse Note Disclamer 12/22/16 22:39 Plasma/Serum Alcohol < 0.01 gm% (0-0.07) 12/22/16 10:43 Lymph Enumerat CD4/CD8 0.08 (0.86-5.00) L 12/26/16 13:33 % CD3 Cells 84 % (57-85) 12/26/16 13:33 Absolute CD3 Count 668 cells/uL (840-3060) L 12/26/16 13:33 % CD4 Cells 6 % (30-61) L 12/26/16 13:33 Absolute CD4 Count 50 cells/uL (490-1740) L 12/26/16 13:33 % CD8 Cells 78 % (12-42) H 12/26/16 13:33 Absolute CD8 Count 636 cells/uL (180-1170) 12/26/16 13:33 % CD19 Cells 10 % (6-29) 12/26/16 13:33 Absolute CD19 Count 79 cells/uL (110-660) L 12/26/16 13:33 RPR Nonreactive (Nonreactive) 12/26/16 13:33 HIV-1 RNA PCR copies/ml <20 copies/mL (<20) 12/26/16 13:33 HIV-1 RNA (PCR) log <1.30 Log cps/mL (<1.30) 12/26/16 13:33 Toxoplasma IgG Ab <=0.90 (<=0.90) 12/26/16 13:33 Toxoplasma IgM Ab Negative (Negative) 12/26/16 13:33 Blood Type A POSITIVE 12/22/16 18:53 Antibody Screen TNR 12/22/16 18:53 KAREN Antibody Screen Negative 12/22/16 18:53
--- NOTE | 2017-01-02 12:28 | Procedure Note ---
Date of procedure: 01/02/17 Pre-op diagnosis: Leg weakness Post-op diagnosis: same Procedure: FL guided lumbar puncture Findings: 12 cc clear CSF obtained. Anesthesia: local Surgeon: JESSICA ISIDRO Estimated blood loss: none Specimen disposition: to lab Condition: stable Disposition: floor
--- NOTE | 2017-01-02 12:38 | Fluoroscopy Report ---
FLUORO GUIDED LUMBAR PUNCTURE INDICATION: Left hemiplegia. Concern for HOSPICE ART THERAPIST infection or cancer. History of spider/insect bite 2 months ago with sudden loss of vision and extremity weakness. COMPARISON: None similar. FINDINGS: After obtaining procedure risks and benefits to patient's father over the telephone, informed consent obtained. 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 Patient positioned prone on the fluoroscopy table. An appropriate skin site marked using fluoro guidance. Patient prepped and draped in the usual sterile fashion. 1% lidocaine used for local anesthesia. A 22-gauge spinal needle advanced into the thecal sac at L3 with clear CSF obtained. Total of approximately 12 cc clear CSF retrieved and sent to the lab in 4 separate test tubes. Patient tolerated the procedure well and left the department in stable condition. CONCLUSION: Status post lumbar puncture, as described. Dr. Holder present for and performed the entire procedure. Thank you for the opportunity to participate in this patient's care.
[2017-01-02] MEDS: BACTRIM DS PO SCH (12:53)
[2017-01-02 13:02] LABS: Glucose,CSF < 2.0 mg/dL
[2017-01-02 13:15] LABS: Appearance,CSF Clear; White Blood Cell,CSF 1 /mm3 (1-10)
[2017-01-02 14:28] LABS: CSF Diff Status Complete
[2017-01-02] MEDS: ZOCOR PO SCH ×2 (20:57→21:01)
[2017-01-02] MEDS: COBICISTAT PO SCH (21:01)
[2017-01-02] MEDS: NON-FORMULARY (Emtricitab/Rilpiviri/Tenof Ala [Odefsey Tablet] 1 EACH) PO SCH (21:01)
[2017-01-02] MEDS: DARUNAVIR PO SCH (21:01)
--- NOTE | 2017-01-03 09:43 | Progress Note ---
Assessment and Plan Assessment and plan: 36 YO M Hx HIV for many years on HAART p/w 10 days of progressive L sided weakness and difficulty w/ L sided vision. Clinical exam consistent with R hemispheric dense lesion. MRI Brain confirms extensive white matter disease of R temporparietaloccipital lobes, splenium of corpus callosum, and L occipital lobe w/o enhancement. 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 MRA head neg. * Acute metabolic encephalopathy * Left hemiplegia, and aphasia * Decreased visual acuity possible opthalmoplegia * Hypotension * NICOTINE DEPENDENCE * AIDS * Acute CVA with infarct and LEFT SIDED HEMIPLEGIA * WHITE MATTER ABNORMALITY ON BRAIN MRI CONCERNING FOR PML,MALIGNANCY * SEBORRHEA * Dysphagia PLAN: * CONTINUE SUPPORTIVE CARE speech therapy input appreciated, changed to pureed diet * SP LP 01/02 * Continue HAART * Cd4 count is 50, on bactrim for PCP and Toxoplasmosis ppx * FALL PRECAUTIONS * Discussed with ID * PLAN DISCUSSED WITH THE PATIENT * PT/OT EVAL AND TREAT * DVT/GI PROPHY History Interval history: no events overnight, dysphagia and hemiplegia are improving Hospitalist Physical - Physical exam Narrative exam: VITAL SIGNS: Reviewed. GENERAL: The patient appeared well nourished and normally developed. Vital signs as documented. HEAD: No signs of head trauma. EYES: Pupils are equal. Visual impairment EARS: Hearing grossly intact. MOUTH: Oropharynx is normal. NECK: No adenopathy, no JVD. CHEST: Chest with clear breath sounds bilaterally. No wheezes, rales, or rhonchi. CARDIAC: Regular rate and rhythm. S1 and S2, without murmurs, gallops, or rubs. VASCULAR: No Edema. Peripheral pulses normal and equal in all extremities. ABDOMEN: Soft, without detectable tenderness. No sign of distention. No rebound or guarding, and no masses palpated. Bowel Sounds normal. MUSCULOSKELETAL: Noted range of motion on the left side Extremities without clubbing, cyanosis or edema. NEUROLOGIC EXAM: left hemiplegia, speech is slow and appear to have trouble finding words, oriented x2 . Follows commands. PSYCHIATRIC: Mood normal. SKIN: Multiple skin induration subcarinal area, generalized lower extremity. - Constitutional Vitals: Temp Pulse Resp BP Pulse Ox 98.8 F 76 18 93/58 98 01/03/17 08:20 01/03/17 08:20 01/03/17 08:20 01/03/17 08:20 01/03/17 08:20 General appearance: Present: no acute distress Results - Labs CBC & Chem 7: 12/31/16 18:01 12/31/16 18:01 Labs: Laboratory Last Values WBC 5.3 K/mm3 (4.5-11.0) 12/31/16 18:01 RBC 4.50 M/mm3 (3.65-5.03) 12/31/16 18:01 Hgb 13.7 gm/dl (11.8-15.2) 12/31/16 18:01 Hct 40.6 % (35.5-45.6) 12/31/16 18:01 MCV 90 fl (84-94) 12/31/16 18:01 MCH 30 pg (28-32) 12/31/16 18:01 MCHC 34 % (32-34) 12/31/16 18:01 RDW 17.2 % (13.2-15.2) H 12/31/16 18:01 Plt Count 276 K/mm3 (140-440) 12/31/16 18:01 Lymph % (Auto) 16.5 % (13.4-35.0) 12/22/16 10:43 [place] % (Auto) 7.7 % (0.0-7.3) H 12/22/16 10:43 Eos % (Auto) 2.4 % (0.0-4.3) 12/22/16 10:43 Baso % (Auto) 0.1 % (0.0-1.8) 12/22/16 10:43 Lymph # 0.7 K/mm3 (1.2-5.4) L 12/22/16 10:43 [place] # 0.3 K/mm3 (0.0-0.8) 12/22/16 10:43 Eos # 0.1 K/mm3 (0.0-0.4) 12/22/16 10:43 Baso # 0.0 K/mm3 (0.0-0.1) 12/22/16 10:43 Seg Neutrophils % 73.3 % (40.0-70.0) H 12/22/16 10:43 Seg Neutrophils # 3.2 K/mm3 (1.8-7.7) 12/22/16 10:43 Abs Lymphs (Manual) 800 cells/uL (850-3900) L 12/26/16 13:33 PT 13.3 Sec. (12.2-14.9) 12/26/16 13:33 INR 1.02 (0.87-1.13) 12/26/16 13:33 APTT 29.0 Sec. (24.2-36.6) 12/26/16 13:33 Sodium 134 mmol/L (137-145) L 12/31/16 18:01 Potassium 4.2 mmol/L (3.6-5.0) 12/31/16 18:01 Chloride 101.3 mmol/L (98-107) 12/31/16 18:01 Carbon Dioxide 23 mmol/L (22-30) 12/31/16 18:01 Anion Gap 14 mmol/L 12/31/16 18:01 BUN 10 mg/dL (9-20) 12/31/16 18:01 Creatinine 0.6 mg/dL (0.8-1.5) L 12/31/16 18:01 Estimated GFR > 60 ml/min 12/31/16 18:01 BUN/Creatinine Ratio 16.66 % 12/31/16 18:01 Glucose 126 mg/dL (75-100) H 12/31/16 18:01 POC Glucose 130 (70-105) H 12/23/16 21:35 Lactic Acid 0.90 mmol/L (0.7-2.0) 12/22/16 18:53 Calcium 7.9 mg/dL (8.4-10.2) L 12/31/16 18:01 Magnesium 1.80 mg/dL (1.7-2.3) 12/22/16 10:43 Total Bilirubin 0.20 mg/dL (0.1-1.2) 12/22/16 18:53 Direct Bilirubin < 0.2 mg/dL (0-0.2) 12/22/16 18:53 Indirect Bilirubin 0.0 mg/dL 12/22/16 18:53 AST 33 units/L (5-40) 12/22/16 18:53 ALT 33 units/L (7-56) 12/22/16 18:53 Alkaline Phosphatase 91 units/L (35-129) 12/22/16 18:53 Lactate Dehydrogenase 203 units/L (91-180) H 12/22/16 10:43 Troponin T < 0.010 ng/mL (0.00-0.029) 12/22/16 18:53 Total Protein 4.4 g/dL (6.3-8.2) L 12/22/16 18:53 Albumin 1.9 g/dL (3.9-5) L 12/22/16 18:53 Albumin/Globulin Ratio 0.8 % 12/22/16 18:53 Triglycerides 70 mg/dL (2-149) 12/23/16 07:30 Cholesterol 91 mg/dL (50-199) 12/23/16 07:30 LDL Cholesterol Direct 57 mg/dL (50-130) 12/23/16 07:30 HDL Cholesterol 20 mg/dL (40-59) L 12/23/16 07:30 Cholesterol/HDL Ratio 4.55 % 12/23/16 07:30 Urine Color Yellow (Yellow) 12/22/16 22:39 Urine Turbidity Clear (Clear) 12/22/16 22:39 Urine pH 6.0 (5.0-7.0) 12/22/16 22:39 Ur Specific [place] 1.020 (1.003-1.030) 12/22/16 22:39 Urine Protein <15 mg/dl mg/dL (Negative) 12/22/16 22:39 Urine Glucose (UA) Neg mg/dL (Negative) 12/22/16 22:39 Urine Ketones Neg mg/dL (Negative) 12/22/16 22:39 Urine Blood Neg (Negative) 12/22/16 22:39 Urine Nitrite Neg (Negative) 12/22/16 22:39 Urine Bilirubin Neg (Negative) 12/22/16 22:39 Urine Urobilinogen < 2.0 mg/dL (<2.0) 12/22/16 22:39 Ur Leukocyte Esterase Neg (Negative) 12/22/16 22:39 Urine WBC (Auto) 2.0 /HPF (0.0-6.0) 12/22/16 22:39 Urine RBC (Auto) 1.0 /HPF (0.0-6.0) 12/22/16 22:39 U Epithel Cells (Auto) < 1.0 /HPF (0-13.0) 12/22/16 22:39 Urine Mucus Few /HPF 12/22/16 22:39 CSF Appearance Clear 12/26/16 10:30 CSF Color Colorless 12/26/16 10:30 CSF WBC 1 /mm3 (1-10) 12/26/16 10:30 CSF RBC 8 /mm3 (0-0) 12/26/16 10:30 CSF Seg Neutrophils Not Reportable 12/26/16 10:30 CSF Lymphocytes % 100.0 % (40-80) 12/26/16 10:30 CSF Reactive Lymphs Not Reportable 12/26/16 10:30 CSF Monocytes % Not Reportable 12/26/16 10:30 CSF Eosinophils % Not Reportable 12/26/16 10:30 CSF Basophils Not Reportable 12/26/16 10:30 CSF Pathologist Review C 12/26/16 10:30 CSF Glucose < 2.0 mg/dL 12/26/16 11:15 CSF Total Protein < 4.0 mg/dL 12/26/16 11:15 Urine Opiates Screen Presumptive negative 12/22/16 22:39 Urine Methadone Screen Presumptive negative 12/22/16 22:39 Ur Barbiturates Screen Presumptive negative 12/22/16 22:39 Ur Phencyclidine Scrn Presumptive negative 12/22/16 22:39 Ur Amphetamines Screen Presumptive negative 12/22/16 22:39 U Benzodiazepines Scrn Presumptive negative 12/22/16 22:39 Urine Cocaine Screen Presumptive negative 12/22/16 22:39 U Marijuana (THC) Screen Presumptive negative 12/22/16 22:39 Drugs of Abuse Note Disclamer 12/22/16 22:39 Plasma/Serum Alcohol < 0.01 gm% (0-0.07) 12/22/16 10:43 Lymph Enumerat CD4/CD8 0.08 (0.86-5.00) L 12/26/16 13:33 % CD3 Cells 84 % (57-85) 12/26/16 13:33 Absolute CD3 Count 668 cells/uL (840-3060) L 12/26/16 13:33 % CD4 Cells 6 % (30-61) L 12/26/16 13:33 Absolute CD4 Count 50 cells/uL (490-1740) L 12/26/16 13:33 % CD8 Cells 78 % (12-42) H 12/26/16 13:33 Absolute CD8 Count 636 cells/uL (180-1170) 12/26/16 13:33 % CD19 Cells 10 % (6-29) 12/26/16 13:33 Absolute CD19 Count 79 cells/uL (110-660) L 12/26/16 13:33 RPR Nonreactive (Nonreactive) 12/26/16 13:33 HIV-1 RNA PCR copies/ml <20 copies/mL (<20) 12/26/16 13:33 HIV-1 RNA (PCR) log <1.30 Log cps/mL (<1.30) 12/26/16 13:33 Toxoplasma IgG Ab <=0.90 (<=0.90) 12/26/16 13:33 Toxoplasma IgM Ab Negative (Negative) 12/26/16 13:33 Blood Type A POSITIVE 12/22/16 18:53 Antibody Screen TNR 12/22/16 18:53 KAREN Antibody Screen Negative 12/22/16 18:53
[2017-01-03] MEDS: BACTRIM DS PO SCH (09:48)
--- NOTE | 2017-01-03 15:09 | Progress Note ---
Assessment and Plan - Patient Problems (1) AIDS Current Visit: Yes Status: Acute Plan to address problem: Continue current HAART regimen and PCP prophylaxis. (2) White matter abnormality on MRI of brain Current Visit: Yes Status: Acute Plan to address problem: 1. 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 Await result of CSF LORENZO viral PCR to confirm, as well as other CSF viral studies. 2. Treatment is further immune reconstitution, which is being achieved with HAART. 3. As there is no additional infectious evaluation or treatment other than continued HAART, patient can be discharged to follow-up with neuro and ID as an outpatient. 4. I will continue to follow-up CSF studies, but will see the patient on an as -needed basis. (3) Tinea versicolor Current Visit: Yes Status: Acute Plan to address problem: Topical Ketoconazole to face. Continue for several weeks as outpatient. Subjective Date of service: 01/03/17 Interval history: Patient completed lumbar puncture yesterday. No new clinical issues. Objective - Constitutional Vitals: Vital Signs Temp Pulse Resp BP Pulse Ox 98.8 F 76 18 93/58 98 01/03/17 08:20 01/03/17 10:27 01/03/17 10:27 01/03/17 08:20 01/03/17 10:27 Temperature -Last 24 Hours Temperature 98.8 F Temperature 97.9 F Temperature 98.5 F Temperature 98.8 F General appearance: Present: no acute distress - EENT ENT: no thrush - Neck Neck: supple, other (resolving furuncles x 2 left clavicle) - Respiratory Respiratory: bilateral: CTA - Cardiovascular Rhythm: regular Heart Sounds: Present: S1 & S2 Extremities: No edema - Integumentary Integumentary: rash (patchy hypopigmented macules throughout face) - Neurologic Neurologic: focal deficits (3/5 motor strength left arm; 3-4/5 motor strength left leg) - Psychiatric Psychiatric: other (flat affect) - Labs CBC & Chem 7: 12/31/16 18:01 12/31/16 18:01 Labs: Laboratory Results - last 72 hr 12/26/16 12/26/16 12/26/16 10:30 11:15 13:33 WBC RBC Hgb Hct MCV MCH MCHC RDW Plt Count Abs Lymphs (Manual) Sodium Potassium Chloride Carbon Dioxide Anion Gap BUN Creatinine Estimated GFR BUN/Creatinine Ratio Glucose Calcium CSF Appearance Clear CSF Color Colorless CSF WBC 1 CSF RBC 8 CSF Seg Neutrophils Not Reportable CSF Lymphocytes % 100.0 CSF Reactive Lymphs Not Reportable CSF Monocytes % Not Reportable CSF Eosinophils % Not Reportable CSF Basophils Not Reportable CSF Pathologist Review C CSF Glucose < 2.0 CSF Total Protein < 4.0 Lymph Enumerat CD4/CD8 % CD3 Cells Absolute CD3 Count % CD4 Cells Absolute CD4 Count % CD8 Cells Absolute CD8 Count % CD19 Cells Absolute CD19 Count Toxoplasma IgG Ab <=0.90 Toxoplasma IgM Ab Negative 12/26/16 12/31/16 12/31/16 13:33 18:01 18:01 WBC 5.3 RBC 4.50 Hgb 13.7 Hct 40.6 MCV 90 MCH 30 MCHC 34 RDW 17.2 H Plt Count 276 Abs Lymphs (Manual) 800 L Sodium 134 L Potassium 4.2 Chloride 101.3 Carbon Dioxide 23 Anion Gap 14 BUN 10 Creatinine 0.6 L Estimated GFR > 60 BUN/Creatinine Ratio 16.66 Glucose 126 H Calcium 7.9 L CSF Appearance CSF Color CSF WBC CSF RBC CSF Seg Neutrophils CSF Lymphocytes % CSF Reactive Lymphs CSF Monocytes % CSF Eosinophils % CSF Basophils CSF Pathologist Review CSF Glucose CSF Total Protein Lymph Enumerat CD4/CD8 0.08 L % CD3 Cells 84 Absolute CD3 Count 668 L % CD4 Cells 6 L Absolute CD4 Count 50 L % CD8 Cells 78 H Absolute CD8 Count 636 % CD19 Cells 10 Absolute CD19 Count 79 L Toxoplasma IgG Ab Toxoplasma IgM Ab Microbiology 12/26/16 10:30 Cerebral Spinal Fluid Cryptococcal Antigen - Final NEGATIVE 12/26/16 10:30 Cerebral Spinal Fluid CSF Culture - Preliminary 12/30/16 Unknown Serum Cryptococcal Antigen - Final 12/22/16 21:24 Peripheral/Venous Blood Culture - Final NO GROWTH AFTER 5 DAYS 12/22/16 18:53 Peripheral/Venous Blood Culture - Final NO GROWTH AFTER 5 DAYS Active Medications Acetaminophen (Tylenol) 650 mg PO Q4H PRN PRN Reason: Pain, Mild (1-3) Albuterol (Proventil) 2.5 mg IH Q6HRT PRN PRN Reason: Shortness Of Breath Bisacodyl (Dulcolax) 10 mg OR QDAY PRN PRN Reason: Constipation Sodium Chloride (Nacl 0.9% 1000 Ml) 1,000 mls @ 125 mls/hr IV DIRECT JEROD Last Admin: 01/01/17 22:11 Dose: 125 mls/hr Magnesium Hydroxide (Milk Of Magnesia) 30 ml PO Q4H PRN PRN Reason: Constipation Metoclopramide HCl (Reglan) 10 mg PO Q6H PRN PRN Reason: Nausea And Vomiting Miscellaneous Medication (Darunavir/Cobicistat (Nf)) 1 tab PO QHS [facility] Last Admin: 01/02/17 21:01 Dose: 1 tab Miscellaneous Medication (Emtricitab/Rilpiviri/Tenof Ala [Odefsey Tablet]) 1 each PO QHS [facility] Last Admin: 01/02/17 21:01 Dose: 1 each Ondansetron HCl (Zofran) 4 mg IV Q8H PRN PRN Reason: N/V unrelieved by Marlee Promethazine HCl (Phenergan) 25 mg OR Q6H PRN PRN Reason: Nausea And Vomiting Selenium Sulfide (Selsun) 1 applic TP 2XW PRN PRN Reason: Seborrhea Simvastatin (Zocor) 20 mg PO QHS [facility] Last Admin: 01/02/17 21:01 Dose: Not Given Sodium Chloride (Sodium Chloride Flush Syringe 10 Ml) 10 ml IV PRN PRN PRN Reason: LINE FLUSH Trimethoprim/Sulfamethoxazole (Bactrim Ds) 1 each PO DAILY [facility] Last Admin: 01/03/17 09:48 Dose: 1 each
[2017-01-03] MEDS: ZOCOR PO SCH (21:28)
[2017-01-03] MEDS: DARUNAVIR PO SCH (21:29)
[2017-01-03] MEDS: COBICISTAT PO SCH (21:29)
[2017-01-03] MEDS: NIZORAL TP SCH (21:29)
[2017-01-03] MEDS: NON-FORMULARY (Emtricitab/Rilpiviri/Tenof Ala [Odefsey Tablet] 1 EACH) PO SCH (21:29)
[2017-01-03] MEDS: NACL 0.9% 1000 ML 1,000 ML IV SCH (21:51)
[2017-01-04] MEDS: NACL 0.9% 1000 ML 1,000 ML IV SCH (06:12)
[2017-01-04 09:55] VITALS: BP 98/57
--- NOTE | 2017-01-04 10:19 | Discharge Summary ---
Providers - Providers Date of Admission: 12/22/16 22:54 Attending physician: DARLENE FRANCO MD 12/23/16 13:48 Consult to Dietitian/Nutrition [CONS] Routine Physician Instructions: Reason For Exam: Reason for Consult: Malnutrition 12/25/16 14:45 Consult to Physician [CONS] Routine Consulting Provider: REYNALDO TERRY Reason For Exam: HIV, suspic of cerebral lymphoma/malignancy Place consult to:: Dr. Terry Notified:: office Phone number called:: [phone] Was contact made?: Yes Time called:: 15:24 12/25/16 14:47 Consult to Physician [CONS] Routine Consulting Provider: VANDANA LACEY Reason For Exam: HIV, suspic of cerebral lymphoma/malignancy Place consult to:: Dr. Lacey Notified:: Dr Lacey Phone number called:: [phone] Was contact made?: Yes Time called:: 15:28 12/25/16 14:48 Consult to Dietitian/Nutrition [CONS] Routine Physician Instructions: Reason For Exam: Reason for Consult: Malnutrition 12/26/16 09:38 Consult to Physician [CONS] Routine Consulting Provider: BRAN AMARAL Reason For Exam: PML Place consult to:: Dr. Amaral Notified:: Adalberto JANG Phone number called:: Ext [phone] Was contact made?: Yes If yes, spoke with:: Voicemail with consult info left for Debra Toure Time called:: 10:11 Primary care physician: SENIOR PROFESSIONAL SERVICES CONSULTANT Hospitalization Condition: Serious Hospital course: 36 YO M Hx HIV for many years on HAART p/w 10 days of progressive L sided weakness and difficulty w/ L sided vision. Clinical exam consistent with R hemispheric dense lesion. MRI Brain confirms extensive white matter disease of R temporparietaloccipital lobes, splenium of corpus callosum, and L occipital lobe w/o enhancement. I suspect PML but DECK ENGINEER lymphoma in the differential. MRA head neg. * Acute metabolic encephalopathy * Left hemiplegia, and aphasia * Decreased visual acuity possible opthalmoplegia * Hypotension * NICOTINE DEPENDENCE * AIDS * Acute CVA with infarct and LEFT SIDED HEMIPLEGIA * WHITE MATTER ABNORMALITY ON BRAIN MRI CONCERNING FOR PML,MALIGNANCY * SEBORRHEA * Dysphagia PLAN: * CONTINUE SUPPORTIVE CARE speech therapy input appreciated, changed to pureed diet * SP LP 01/02 * Continue HAART * Cd4 count is 50, on bactrim for PCP and Toxoplasmosis ppx * FALL PRECAUTIONS * Discussed with ID * PLAN DISCUSSED WITH THE PATIENT * PT/OT EVAL AND TREAT * DVT/GI PROPHY 1. 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 Await result of CSF LORENZO viral PCR to confirm, as well as other CSF viral studies. 2. Treatment is further immune reconstitution, which is being achieved with HAART. 3. As there is no additional infectious evaluation or treatment other than continued HAART, patient can be discharged to follow-up with neuro and ID as an outpatient. 4. I will continue to follow-up CSF studies, but will see the patient on an as -needed basis. Disposition: DC/TX HOME UNDER HOME HEALTH Time spent for discharge: 35 minutes Core Measure Documentation - Palliative Care Palliative Care/ Comfort Measures: Not Applicable - Core Measures Any of the following diagnoses?: stroke - Stroke Discharge Requirements Statin for LDL = or >70 mg/dl on DC: Yes Anticoag for atrial fib/atrial flutter: Not Applicable Antithrombotic for ischemic stroke: Yes Exam - Physical Exam Narrative exam: VITAL SIGNS: Reviewed. GENERAL: The patient appeared well nourished and normally developed. Vital signs as documented. HEAD: No signs of head trauma. EYES: Pupils are equal. Visual impairment EARS: Hearing grossly intact. MOUTH: Oropharynx is normal. NECK: No adenopathy, no JVD. CHEST: Chest with clear breath sounds bilaterally. No wheezes, rales, or rhonchi. CARDIAC: Regular rate and rhythm. S1 and S2, without murmurs, gallops, or rubs. VASCULAR: No Edema. Peripheral pulses normal and equal in all extremities. ABDOMEN: Soft, without detectable tenderness. No sign of distention. No rebound or guarding, and no masses palpated. Bowel Sounds normal. MUSCULOSKELETAL: Noted range of motion on the left side Extremities without clubbing, cyanosis or edema. NEUROLOGIC EXAM: left hemiplegia, speech is slow and appear to have trouble finding words, oriented x2 . Follows commands. PSYCHIATRIC: Mood normal. SKIN: Multiple skin induration subcarinal area, generalized lower extremity. - Constitutional Vitals: Temp Pulse Resp BP Pulse Ox 98.5 F 74 18 98/57 98 01/04/17 09:53 01/04/17 09:53 01/04/17 09:53 01/04/17 09:53 01/04/17 09:53 Plan Follow up with: PRIMARY MD CARMEN [Primary Care Provider] - 3-5 Days VANDANA LACEY MD [Staff Physician] - 7 Days Prescriptions: Simvastatin [Zocor TAB] 20 mg PO QHS #30 tablet Aspirin EC [Aspirin Enteric Coated TAB] 81 mg PO QDAY #30 tablet. Clopidogrel Bisulfate [Plavix] 75 mg PO DAILY #30 tablet Darunavir/Cobicistat (Nf) [Prezcobix 800 mg-150 mg (Nf)] 1 tab PO DAILY #30 tablet Emtricitab/Rilpiviri/Tenof Ala [Odefsey Tablet] 1 each PO DAILY #30 tablet Ketoconazole 2% [Nizoral] 1 applic TP BID #1 tube Selenium Sulfide [Selsun] 1 applic TP 2XW PRN #1 bottle PRN Reason: Seborrhea Sulfamethoxazole/Trimethoprim [Bactrim DS TAB] 1 each PO DAILY #60 tablet
[2017-01-04] MEDS: NIZORAL TP SCH (10:28)
[2017-01-04] MEDS: BACTRIM DS PO SCH (10:28)
== END 2017-01-04 13:31 | disposition home health service (06) | DRG 64 ==
LOC: ED 10:05 → 4A 22:54
PROVIDERS: ADMIT Internal Medicine; ATTEND Internal Medicine
PROC: 009U3ZX Drainage of Spinal Canal, Percutaneous Approach, Diagnostic (ICD-10-PCS; principal; 2017-01-02)
PROC: B01B1ZZ Fluoroscopy of Spinal Cord using Low Osmolar Contrast (ICD-10-PCS; 2017-01-02)
DX: I63.9 Cerebral infarction, unspecified (principal); B20 Human immunodeficiency virus [HIV] disease; G93.41 Metabolic encephalopathy; G81.94 Hemiplegia, unspecified affecting left nondominant side; F17.200 Nicotine dependence, unspecified, uncomplicated; Z82.49 Family history of ischemic heart disease and other diseases of the circulatory system; L21.9 Seborrheic dermatitis, unspecified; R13.10 Dysphagia, unspecified; I95.9 Hypotension, unspecified; H54.7 Unspecified visual loss; R47.01 Aphasia; B36.0 Pityriasis versicolor
CPT/HCPCS: 36415; 62270; 70450; 70544; 70551; 70552; 71020; 77003; 80048; 80061; 80074; 80307; 80320; 81001; 82024; 82140; 82947; 82962; 83615; 83735; 84160; 84484; 85025; 85027; 85610; 85730; 86403; 86592; 86777; 86778; 86850; 86900; 86901; 87040; 87102; 87116; 87220; 87497; 87536; 87799; 89051; 93005; 93010; 93306; 93880; 96360; 99406; A9577; G0480; G8978-GP; G8979-GP; J7030; J7040

== ENCOUNTER 2017-01-27 14:02 | Inpatient (IN) | payer SELFPAY ==
--- NOTE | 2017-01-27 14:16 | Emergency Department Report ---
ED Neuro Deficit HPI - General Chief Complaint: Neuro Symptoms/Deficit Stated Complaint: POSS CVA Time Seen by Provider: 01/27/17 14:10 Source: patient, EMS Mode of arrival: Stretcher Limitations: No Limitations - Related Data Home Medications: Previous Rx's Medication Instructions Recorded Last Taken Type Aspirin EC [Aspirin Enteric Coated 81 mg PO QDAY #30 tablet. 01/04/17 Rx TAB] Clopidogrel Bisulfate [Plavix] 75 mg PO DAILY #30 tablet 01/04/17 01/26/17 Rx Darunavir/Cobicistat (Nf) 1 tab PO DAILY #30 tablet 01/04/17 01/26/17 Rx [Prezcobix 800 mg-150 mg (Nf)] Emtricitab/Rilpiviri/Tenof Ala 1 each PO DAILY #30 tablet 01/04/17 01/26/17 Rx [Odefsey Tablet] Ketoconazole 2% [Nizoral] 1 applic TP BID #1 tube 01/04/17 01/26/17 Rx Selenium Sulfide [Selsun] 1 applic TP 2XW PRN #1 bottle 01/04/17 01/26/17 Rx Simvastatin [Zocor TAB] 20 mg PO QHS #30 tablet 01/04/17 01/26/17 Rx Sulfamethoxazole/Trimethoprim 1 each PO DAILY #60 tablet 01/04/17 01/26/17 Rx [Bactrim DS TAB] Allergies/Adverse Reactions: Allergies Allergy/AdvReac Type Severity Reaction Status Date / Time No Known Allergies Allergy Unverified 12/22/16 10:09 ED Review of Systems ROS: Stated complaint: POSS CVA Other details as noted in HPI ED Past Medical Hx - Past Medical History Previous Medical History?: Yes Hx HIV: Yes Additional medical history: Boil - Surgical History Past Surgical History?: No - Social History Smoking Status: Smoker, Current Status Unknown - Medications Home Medications: Home Medications Medication Instructions Recorded Confirmed Last Taken Type Aspirin EC [Aspirin Enteric Coated 81 mg PO QDAY #30 tablet. 01/04/1701/26/17 Rx TAB] Clopidogrel Bisulfate [Plavix] 75 mg PO DAILY #30 tablet 01/04/17 01/27/1701/26 Rx Darunavir/Cobicistat (Nf) 1 tab PO DAILY #30 tablet 0601/27/17 01/26/17 Rx [Prezcobix 800 mg-150 mg (Nf)] Emtricitab/Rilpiviri/Tenof Ala 1 each PO DAILY #30 tablet 01/04/17 01/27/17 Rx [Odefsey Tablet] Ketoconazole 2% [Nizoral] 1 applic TP BID #1 tube 01/04/17 01/27/17 01/26/17 Rx Selenium Sulfide [Selsun] 1 applic TP 2XW PRN #1 bottle 01/04/17 01/27/17 Rx Simvastatin [Zocor TAB] 20 mg PO QHS #30 tablet 01/04/17 01/27/17 01/26/17 Rx Sulfamethoxazole/Trimethoprim 1 each PO DAILY #60 tablet 01/04/17 01/27/1701/26 Rx [Bactrim DS TAB] ED Neuro Physical Exam - General Limitations: No Limitations, Altered Mental Status, Physical Limitation General appearance: alert, in no apparent distress Suspected Stroke: Yes - Head Head exam: Present: atraumatic, normocephalic - Eye Eye exam: Present: normal appearance, PERRL, EOMI. Absent: nystagmus, periorbital swelling, periorbital tenderness Pupils: Present: normal accommodation. Absent: irregular, unequal - ENT ENT exam: Present: mucous membranes moist - Neck Neck exam: Present: normal inspection - Respiratory Respiratory exam: Present: normal lung sounds bilaterally. Absent: respiratory distress - Cardiovascular Cardiovascular Exam: Present: regular rate, normal rhythm. Absent: systolic murmur, diastolic murmur, rubs, gallop - GI/Abdominal GI/Abdominal exam: Present: soft, normal bowel sounds. Absent: distended, rebound, rigid - Rectal Rectal exam: Present: deferred - Extremities Exam Extremities exam: Present: normal inspection, other (Left drew paralysis). Absent: tenderness, pedal edema, joint swelling - Back Exam Back exam: Present: normal inspection. Absent: tenderness - Neurological Exam Neurological exam: Present: alert, CN II-XII intact, abnormal gait, motor sensory deficit (left hemiparalysis), other (patient reports blindness) - NIHSS Assessment Interval: Baseline 1a. Level of Consciousness: alert 1b. LOC Questions: answers correctly 1c. LOC Commands: performs tasks correctly 2. Best Gaze: normal 3. Visual: complete hemianopia 4. Facial Palsy: normal symmetrical movement 5b. Motor Arm Right: no drift 5a. Motor Arm Left: no movement 6a. Motor Leg Left: no movement 6b. Motor Leg Right: no drift 7. Limb Ataxia: present 2 limbs 8. Sensory: mild/moderate sensory loss 9. Best Language: no aphasia 10. Dysarthria: normal 11. Extinction/Inattention: visual/tactile inattention Total Score: 14 Stroke Severity: Moderate Stroke - Psychiatric Psychiatric exam: Present: flat affect - Skin Skin exam: Present: warm, dry, intact ED Course Vital Signs 01/27/17 01/27/17 01/27/17 14:22 15:15 15:16 Temperature 98.1 F 98.1 F Pulse Rate 82 82 Respiratory 16 19 19 Rate Blood Pressure 102/72 100/71 [Left] O2 Sat by Pulse 99 100 100 Oximetry 01/27/17 01/27/17 18:31 18:34 Temperature Pulse Rate 80 Respiratory 16 15 Rate Blood Pressure 106/82 [Left] O2 Sat by Pulse 100 98 Oximetry - Lab Data Result diagrams: 01/27/17 14:00 01/27/17 14:00 Lab Results 01/27/17 01/27/17 01/27/17 Range/Units 14:00 14:00 14:00 WBC 5.3 (4.5-11.0) K/mm3 RBC 4.52 (3.65-5.03) M/mm3 Hgb 14.1 (11.8-15.2) gm/dl Hct 41.8 (35.5-45.6) % MCV 93 (84-94) fl MCH 31 (28-32) pg MCHC 34 (32-34) % RDW 15.5 H (13.2-15.2) % Plt Count 270 (140-440) K/mm3 Lymph % (Auto) 17.0 (13.4-35.0) % Sherman % (Auto) 10.6 H (0.0-7.3) % Eos % (Auto) 10.9 H (0.0-4.3) % Baso % (Auto) 0.6 (0.0-1.8) % Lymph # 0.9 L (1.2-5.4) K/mm3 Sherman # 0.6 (0.0-0.8) K/mm3 Eos # 0.6 H (0.0-0.4) K/mm3 Baso # 0.0 (0.0-0.1) K/mm3 Seg Neutrophils % 60.9 (40.0-70.0) % Seg Neutrophils # 3.2 (1.8-7.7) K/mm3 PT 12.9 (12.2-14.9) Sec. INR 0.93 (0.87-1.13) APTT 28.6 (24.2-36.6) Sec. Thrombin Time (15.1-19.6) Sec. Sodium 135 L (137-145) mmol/L Potassium 4.3 (3.6-5.0) mmol/L Chloride 100.4 (98-107) mmol/L Carbon Dioxide 25 (22-30) mmol/L Anion Gap 14 mmol/L BUN 9 (9-20) mg/dL Creatinine 0.6 L (0.8-1.5) mg/dL Estimated GFR > 60 ml/min BUN/Creatinine Ratio 15.00 % Glucose 95 (75-100) mg/dL POC Glucose (70-105) Calcium 8.0 L (8.4-10.2) mg/dL Troponin T < 0.010 (0.00-0.029) ng/mL Urine Color (Yellow) Urine Turbidity (Clear) Urine pH (5.0-7.0) Ur Specific [place] (1.003-1.030) Urine Protein (Negative) mg/dL Urine Glucose (UA) (Negative) mg/dL Urine Ketones (Negative) mg/dL Urine Blood (Negative) Urine Nitrite (Negative) Urine Bilirubin (Negative) Urine Urobilinogen (<2.0) mg/dL Ur Leukocyte Esterase (Negative) Urine WBC (Auto) (0.0-6.0) /HPF Urine RBC (Auto) (0.0-6.0) /HPF U Epithel Cells (Auto) (0-13.0) /HPF Amorphous Crystals Urine Mucus /HPF Urine Yeast (Budding) Urine Opiates Screen Urine Methadone Screen Ur Barbiturates Screen Ur Phencyclidine Scrn Ur Amphetamines Screen U Benzodiazepines Scrn Urine Cocaine Screen U Marijuana (THC) Screen Drugs of Abuse Note 01/27/17 01/27/17 01/27/17 Range/Units 14:00 14:43 15:02 WBC (4.5-11.0) K/mm3 RBC (3.65-5.03) M/mm3 Hgb (11.8-15.2) gm/dl Hct (35.5-45.6) % MCV (84-94) fl MCH (28-32) pg MCHC (32-34) % RDW (13.2-15.2) % Plt Count (140-440) K/mm3 Lymph % (Auto) (13.4-35.0) % Sherman % (Auto) (0.0-7.3) % Eos % (Auto) (0.0-4.3) % Baso % (Auto) (0.0-1.8) % Lymph # (1.2-5.4) K/mm3 Sherman # (0.0-0.8) K/mm3 Eos # (0.0-0.4) K/mm3 Baso # (0.0-0.1) K/mm3 Seg Neutrophils % (40.0-70.0) % Seg Neutrophils # (1.8-7.7) K/mm3 PT (12.2-14.9) Sec. INR (0.87-1.13) APTT (24.2-36.6) Sec. Thrombin Time 15.5 (15.1-19.6) Sec. Sodium (137-145) mmol/L Potassium (3.6-5.0) mmol/L Chloride (98-107) mmol/L Carbon Dioxide (22-30) mmol/L Anion Gap mmol/L BUN (9-20) mg/dL Creatinine (0.8-1.5) mg/dL Estimated GFR ml/min BUN/Creatinine Ratio % Glucose (75-100) mg/dL POC Glucose 94 (70-105) Calcium (8.4-10.2) mg/dL Troponin T (0.00-0.029) ng/mL Urine Color Yellow (Yellow) Urine Turbidity Clear (Clear) Urine pH 7.0 (5.0-7.0) Ur Specific [place] 1.010 (1.003-1.030) Urine Protein <15 mg/dl (Negative) mg/dL Urine Glucose (UA) Neg (Negative) mg/dL Urine Ketones Neg (Negative) mg/dL Urine Blood Neg (Negative) Urine Nitrite Neg (Negative) Urine Bilirubin Neg (Negative) Urine Urobilinogen < 2.0 (<2.0) mg/dL Ur Leukocyte Esterase Neg (Negative) Urine WBC (Auto) 1.0 (0.0-6.0) /HPF Urine RBC (Auto) 3.0 (0.0-6.0) /HPF U Epithel Cells (Auto) < 1.0 (0-13.0) /HPF Amorphous Crystals Few Urine Mucus Few /HPF Urine Yeast (Budding) Not Reportable Urine Opiates Screen Urine Methadone Screen Ur Barbiturates Screen Ur Phencyclidine Scrn Ur Amphetamines Screen U Benzodiazepines Scrn Urine Cocaine Screen U Marijuana (THC) Screen Drugs of Abuse Note 01/27/17 Range/Units 15:02 WBC (4.5-11.0) K/mm3 RBC (3.65-5.03) M/mm3 Hgb (11.8-15.2) gm/dl Hct (35.5-45.6) % MCV (84-94) fl MCH (28-32) pg MCHC (32-34) % RDW (13.2-15.2) % Plt Count (140-440) K/mm3 Lymph % (Auto) (13.4-35.0) % Sherman % (Auto) (0.0-7.3) % Eos % (Auto) (0.0-4.3) % Baso % (Auto) (0.0-1.8) % Lymph # (1.2-5.4) K/mm3 Sherman # (0.0-0.8) K/mm3 Eos # (0.0-0.4) K/mm3 Baso # (0.0-0.1) K/mm3 Seg Neutrophils % (40.0-70.0) % Seg Neutrophils # (1.8-7.7) K/mm3 PT (12.2-14.9) Sec. INR (0.87-1.13) APTT (24.2-36.6) Sec. Thrombin Time (15.1-19.6) Sec. Sodium (137-145) mmol/L Potassium (3.6-5.0) mmol/L Chloride (98-107) mmol/L Carbon Dioxide (22-30) mmol/L Anion Gap mmol/L BUN (9-20) mg/dL Creatinine (0.8-1.5) mg/dL Estimated GFR ml/min BUN/Creatinine Ratio % Glucose (75-100) mg/dL POC Glucose (70-105) Calcium (8.4-10.2) mg/dL Troponin T (0.00-0.029) ng/mL Urine Color (Yellow) Urine Turbidity (Clear) Urine pH (5.0-7.0) Ur Specific [place] (1.003-1.030) Urine Protein (Negative) mg/dL Urine Glucose (UA) (Negative) mg/dL Urine Ketones (Negative) mg/dL Urine Blood (Negative) Urine Nitrite (Negative) Urine Bilirubin (Negative) Urine Urobilinogen (<2.0) mg/dL Ur Leukocyte Esterase (Negative) Urine WBC (Auto) (0.0-6.0) /HPF Urine RBC (Auto) (0.0-6.0) /HPF U Epithel Cells (Auto) (0-13.0) /HPF Amorphous Crystals Urine Mucus /HPF Urine Yeast (Budding) Urine Opiates Screen Presumptive negative Urine Methadone Screen Presumptive negative Ur Barbiturates Screen Presumptive negative Ur Phencyclidine Scrn Presumptive negative Ur Amphetamines Screen Presumptive negative U Benzodiazepines Scrn Presumptive negative Urine Cocaine Screen Presumptive negative U Marijuana (THC) Screen Presumptive negative Drugs of Abuse Note Disclamer - EKG Data -: EKG Interpreted by 01/27/17 14:36 EKG 1424 NSR at 84 bpm, QTc:430ms, normal axis, no LVH, no ST changes, no STEMI - Medical Decision Making Case d/w neurologist technology infusion specialist. No TPA at this time due to vague history of last known normal and recent MRI of the brain which showed abnormal white matter signaling with multiple possible causes. Prior records reviewed, patient had an LP done and Brain MRI which showed the abnormal white matter signaling. Pt at that time was reporting L sided weakness, but was moving all extremities. Pt has progressive weakness today and has complete paralysis of the left side. pt was discharged home during his last hospitalization with follow up and multiple medications. It is doubtful patient has been compliant with medications Critical care attestation.: If time is entered above; I have spent that time in minutes in the direct care of this critically ill patient, excluding procedure time. ED Disposition Clinical Impression: Hemiplegia, Blindness Disposition: [id number] OP ADMIT IP TO THIS HOSP Is pt being admited?: Yes Condition: Stable
[2017-01-27 14:18] LABS: Basophils % (Auto) 0.6 % (0.0-1.8); Eosinophils % (Auto) 10.9 % (0.0-4.3); Hematocrit 41.8 % (35.5-45.6); Hemoglobin 14.1 gm/dl (11.8-15.2); Mean Corpuscular HGB Conc 34 % (32-34); Mean Corpuscular Hemoglobin 31 pg (28-32); Mean Corpuscular Volume 93 fl (84-94); Platelet Count 270 K/mm3 (140-440); Red Blood Count 4.52 M/mm3 (3.65-5.03); Red Cell Distribution Width 15.5 % (13.2-15.2); White Blood Count 5.3 K/mm3 (4.5-11.0)
--- NOTE | 2017-01-27 14:24 | Cat Scan Report ---
CT HEAD WITHOUT CONTRAST: HISTORY: Neurological deficits, CVA. Abnormal density in the white matter of the posterior right cerebral hemisphere, splenium of the corpus callosum and left parieto-occipital regions are unchanged since 12/22/16. There is no evidence for hemorrhage, mass or large area of acute ischemia on noncontrast CT. Ventricular size remains within normal limits. The posterior fossa contents are unremarkable. The calvarium is intact. The sinuses and paranasal sinuses are well-aerated. IMPRESSION: No acute intracranial process is appreciated. No change since 12/22/16. These findings were discussed with Dr. Pride in the emergency department at 1418 hrs.
[2017-01-27 14:31] LABS: Anion Gap 14 mmol/L; Blood Urea Nitrogen 9 mg/dL (9-20); Carbon Dioxide 25 mmol/L (22-30); Chloride 100.4 mmol/L (98-107); Glucose 95 mg/dL (75-100); Potassium 4.3 mmol/L (3.6-5.0); Sodium 135 mmol/L (137-145)
[2017-01-27 14:32] LABS: INR 0.93 (0.87-1.13); Partial Thromboplastin Time 28.6 Sec. (24.2-36.6)
[2017-01-27 15:11] LABS: Urine Drugs of Abuse Note Disclamer
[2017-01-27 15:20] LABS: Bilirubin,Urine NEG (Negative); Blood,Urine NEG (Negative); Ketones,Urine NEG (Negative); Leukocyte Esterase,Urine NEG (Negative); Mucus,Urine FEW /HPF; Nitrite,Urine NEG (Negative); Protein,Urine <15 mg/dL mg/dL (Negative); Urobilinogen,Urine < 2.0 mg/dL (<2.0)
--- NOTE | 2017-01-27 15:56 | Admit Criteria Form ---
Admission Criteria Documentation: NEUROLOGY GRG Clinical Indications for Admission to Inpatient Care (Place ' X' for any and all applicable criteria): Hospital admission is needed for appropriate care of the patient because of 1 or more of the following: [ ]I. Encephalitis [ ]II. Severe DEEP [place] FRY infections indicated by 1 or more of the following(1)(2)(3) : [ ]a) Intracranial abscess [ ]b) Spinal abscess or myelitis [ ]c) Tuberculous or other nonbacterial, nonviral [place] FRY infection(8) [ ]III. Vasculitis and 1 or more of the following(14)(15): []a) Altered mental status that is severe or persistent or other acute neurologic change []b) Psychosis []c) Seizure [ ]IV. Status epilepticus or repetitive seizures not controlled with emergent treatment [A] (7)(8) [ ]V. Altered mental status that is severe or persistent [ ]. Transient alteration in consciousness with high-risk etiology; examples include (12)(13): [ ]a) Cardiovascular source [ ]b) Cataplexy [ ]VII. Cerebral aneurysm requiring ANY ONE of the following(14): [ ]a) IV antihypertensives or vasoactive agents [ ]b) Sedation and analgesia for suspected leak [ ]c) Need for external ventricular drainage and cerebral perfusion pressure monitoring [ ]d) Emergent evaluation to determine need for surgical clipping or endovascular coiling by interventional radiology. If surgery is required ( Also use Craniotomy, Supratentorial, for Surgery of Bleeding Intracranial Aneurysm (for bleeding aneurysm) or Craniotomy, Supratentorial (for nonbleeding aneurysm) as appropriate. [ ]VIII. New-onset severe neurologic symptom requiring inpatient care indicated by ANY ONE of the following: [ ]a) Aphasia(15) [ ]b) Weakness (grade 3 or less) [ ]c) Paralysis (eg, hemiplegia) [ ]d) Spasticity(16) [ ]e) Dystonia [ ]e) Ataxia(17) [ ]f) Amnesia(18) [ ]g) Involuntary movements(19) [ ]h) Vertigo [ ] Visual loss [ ]i) Other severe neurologic finding (eg, papilledema, mass effect on imaging, myoclonus not treatable at alternative level of care (eg, observation care) [ ]IX. Guillain-Easton syndrome(20) [ ]X. Myasthenia gravis crisis or inpatient monitoring need as indicated by 1 or more of the following(21): [ ]a) Intensive treatment (eg, course of plasmapheresis) with inadequate outpatient situation to monitor patients status [ ]b) Inadequate airway protection [ ]c) Respiratory insufficiency requiring intubation or inpatient. monitoring [ ]d) Progressive dysphagia with failure to thrive [ ]XI. Multiple sclerosis or other acute demyelinating disease requiring inpatient care as indicated by 1 or more of the following (22)(23): [ ]a) Acute severe deterioration requiring inpatient treatment (eg, IV steroids, plasmapheresis, close observation) [ ]b) Acute complication requiring inpatient care (eg, sepsis, severe decubitus, aspiration) [ ]XII.Parkinson disease requiring inpatient care (Also use Optimal Recovery Care Criteria or General Recovery Criteria as appropriate) indicated by 1 or more of the following(25): [ ]a) Infection (eg, aspiration pneumonia) not treatable at alternative level of care [ ]b Dehydration that is severe or persistent [ ]c) Life-threatening agitation or psychotic behavior not treatable on emergency, observation care, or alternative level (eg, residential) basis [ ]d) Severe medication withdrawal effects (eg, freezing, neuroleptic malignant syndrome) not responsive to emergency and observation care treatment ( as appropriate) [ ]e) Other severe manifestation not treatable at alternative level of care [ ]XII. Amyotrophic lateral sclerosis with inpatient care needs as indicated by ANY ONE of the following(26): [ ]a) Acute complications (eg, aspiration pneumonia, sepsis ) requiring inpatient care ( see other optimal Recovery Guideline as appropriate) [ ]b) Dehydration that is severe persistent AND artificial support desired [ ]c) Inadequate airway protection AND artificial support desired [ ]d) Severe ventilatory insufficiency AND artificial support desired [ ]XIII. Myasthenia gravis crisis or inpatient monitoring need as indicated by 1 or more of the following(21): [] a) Inadequate airway protection []b) Respiratory insufficiency requiring intubation or inpatient monitoring []c) Progressive dysphagia with failure to thrive []d) Intensive treatment (e.g., course of plasmapheresis) with inadequate outpatient situation to monitor patients status [ ]XIV. Multiple sclerosis or other acute demyelinating disease requiring inpatient care indicated by 1 or more of the following[C](36)(43)(44)(45)(46): []a) Acute severe deterioration requiring inpatient treatment (eg, IV steroids, plasmapheresis, close observation) []b) Acute complication requiring inpatient care (eg, sepsis, severe decubitus, aspiration) [ ]XV. Intracranial hypertension (e.g., pseudotumor cerebri) requiring inpatient care (e.g., acute visual loss, inadequate oral intake) (47)(48)(49) [ ]XVI. Parkinson disease requiring inpatient care (Also use Optimal Recovery Care Criteria or General Recovery Criteria as appropriate) indicated by 1 or more of the following(25): [] a) Infection (e.g., aspiration pneumonia) not treatable at alternative level of care []b) Volume depletion not responsive to emergency and observation care treatment (as appropriate) []c) Life-threatening agitation or psychotic behavior not treatable on emergency, observation care, or alternative level (e.g., residential) basis []d) Severe medication withdrawal effects (e.g., freezing, neuroleptic malignant syndrome) not responsive to emergency and observation care treatment (as appropriate) []e) Other severe manifestation not treatable at alternative level of care [ ]XVII. Amyotrophic lateral sclerosis with inpatient care needs as indicated by1 or more of the following(42): []a) Acute complications (eg, aspiration pneumonia, sepsis) requiring inpatient care (see other Optimal Recovery Guideline or General Recovery Guideline as appropriate) []b) Dehydration that is severe or persistent AND artificial support desired []c) Inadequate airway protection AND artificial support desired []d) Severe ventilatory insufficiency AND artificial support desired [ ]XVIII. Severe myopathy, neuropathy, or other neuromuscular disease indicated by 1 or more of the following(42)(52)(53)(54): []a ) New-onset severe diffuse weakness (eg, strength 3/5 or less) []b) Severe dysphagia []c) Dyspnea at rest or with minimal exertion (new) []d) Inadequate airway protection []e) Inadequate ventilation indicated by 1 or more of the following : i) Partial pressure of carbon dioxide greater than 44 mm Hg ( 5.9 kPa) (new) ii) Reduced peak expiratory flow rate (new) iii) Vital capacity less than 50% of predicted (less than 15 mL/kg) iv) Peak inspiratory force less negative than -30 cm H2O (- 2942 Pa) [ ]XVII.Complications of congenital or degenerative disease (eg, infection, seizures, dehydration, injury) not responsive to emergency and observation care treatment (as appropriate ) [C](16)(29)(30) [ ]XVIII.Suspected or confirmed nerve or muscle toxic injury, including ANY ONE of the following: [ ]a) Rhabdomyolysis(31) i) Acute renal failure ii) Dehydration that is severe or persistent iii) Altered mental status that is severe or persistent iv) Electrolyte abnormality that remains after emergency or observation level care ( as appropriate) [ ]b) Botulism(32) [ ]c) Other severe toxin-induced sign or symptom [ ]XIX. Neurologic trauma requiring inpatient treatment (medical) indicated by ANY ONE of the following(33)(34): [ ]a) Vital signs or neurologic signs more frequently than every 4 hours [ ]b) Hyperosmolar therapy [ ]c) Respiratory monitoring [ ]d) Intracranial pressure monitoring and treatment [ ]e) Stabilization and immobilization device placement (eg, braces, body jacket) [ ]f) Intubation & mechanical ventilation for airway protection or therapeutic hyperventilation [ ]g) Other treatment or monitoring needed that requires inpatient level of care [ ]XX.Complications of neurologic devices (eg, ventricular shunt, neurostimulator) requiring 1 or more of the following(35)(36): [ ]a) IV antibiotics with monitoring while awaiting culture results [ ]b) Monitoring for hydrocephalus [X ]XXI. Neurology condition symptom, or finding for which emergency and observation care have failed or are not considered appropriate. See General Criteria: Observation Care ISC, General Admission Criteria GRG, or Pediatric General Admission Criteria GRG guideline as appropriate. The original [facility] content created by [email or web address] has been revised. The portions of the content which have been revised are identified through the use of italic text or in bold, and [facility] has neither reviewed nor approved the modified material. All other unmodified content is copyright [facility] Please see references footnoted in the original [facility] edition 2016 Admission Criteria Met: Yes
--- NOTE | 2017-01-27 23:23 | History and Physical Report ---
History of Present Illness Date of examination: 01/27/17 Date of admission: 01/27/17 15:46 Chief complaint: Sudden onset of Rt sided weakness and blindness few hrs History of present illness: [place]36 y/o male with Hiv comes in for Rt sided weakness and blindness - Related Data Home Medications: Previous Rx's Medication Instructions Recorded Last Taken Type Aspirin EC [Aspirin Enteric Coated 81 mg PO QDAY #30 tablet. 01/04/17 Rx TAB] Clopidogrel Bisulfate [Plavix] 75 mg PO DAILY #30 tablet 01/04/17 01/26/17 Rx Darunavir/Cobicistat (Nf) 1 tab PO DAILY #30 tablet 01/04/17 01/26/17 Rx [Prezcobix 800 mg-150 mg (Nf)] Emtricitab/Rilpiviri/Tenof Ala 1 each PO DAILY #30 tablet 01/04/17 01/26/17 Rx [Odefsey Tablet] Ketoconazole 2% [Nizoral] 1 applic TP BID #1 tube 01/04/17 01/26/17 Rx Selenium Sulfide [Selsun] 1 applic TP 2XW PRN #1 bottle 01/04/17 01/26/17 Rx Simvastatin [Zocor TAB] 20 mg PO QHS #30 tablet 01/04/17 01/26/17 Rx Sulfamethoxazole/Trimethoprim 1 each PO DAILY #60 tablet 01/04/17 01/26/17 Rx [Bactrim DS TAB] Allergies/Adverse Reactions: Allergies Allergy/AdvReac Type Severity Reaction Status Date / Time No Known Allergies Allergy Unverified 12/22/16 10:09 ED Review of Systems ROS: Stated complaint: POSS CVA Other details as noted in HPI ED Past Medical Hx - Past Medical History Previous Medical History?: Yes Hx HIV: Yes Additional medical history: Boil - Surgical History Past Surgical History?: No - Social History Smoking Status: Smoker, Current Status Unknown - Medications Home Medications: Home Medications Medication Instructions Recorded Confirmed Last Taken Type Aspirin EC [Aspirin Enteric Coated 81 mg PO QDAY #30 tablet. 01/04/1701/26/17 Rx TAB] Clopidogrel Bisulfate [Plavix] 75 mg PO DAILY #30 tablet 01/04/17 01/27/1701/26 Rx Darunavir/Cobicistat (Nf) 1 tab PO DAILY #30 tablet 01/04/17 01/27/17 01/26/17 Rx [Prezcobix 800 mg-150 mg (Nf)] Emtricitab/Rilpiviri/Tenof Ala 1 each PO DAILY #30 tablet 01/04/17 01/27/17 Rx [Odefsey Tablet] Ketoconazole 2% [Nizoral] 1 applic TP BID #1 tube 01/04/17 01/27/17 01/26/17 Rx Selenium Sulfide [Selsun] 1 applic TP 2XW PRN #1 bottle 01/04/17 01/27/17 Rx Simvastatin [Zocor TAB] 20 mg PO QHS #30 tablet 01/04/17 01/27/17 01/26/17 Rx Sulfamethoxazole/Trimethoprim 1 each PO DAILY #60 tablet 01/04/17 01/27/1701/26 Rx [Bactrim DS TAB] Past History Past Medical History: HIV/AIDS, stroke Medications and Allergies Allergies Allergy/AdvReac Type Severity Reaction Status Date / Time No Known Allergies Allergy Unverified 12/22/16 10:09 Home Medications Medication Instructions Recorded Confirmed Last Taken Type Aspirin EC [Aspirin Enteric Coated 81 mg PO QDAY #30 tablet. 01/04/1701/26/17 Rx TAB] Clopidogrel Bisulfate [Plavix] 75 mg PO DAILY #30 tablet 01/04/17 01/27/1701/26 Rx Darunavir/Cobicistat (Nf) 1 tab PO DAILY #30 tablet 01/04/17 01/27/17 01/26/17 Rx [Prezcobix 800 mg-150 mg (Nf)] Emtricitab/Rilpiviri/Tenof Ala 1 each PO DAILY #30 tablet 01/04/17 01/27/17 Rx [Odefsey Tablet] Ketoconazole 2% [Nizoral] 1 applic TP BID #1 tube 01/04/17 01/27/17 01/26/17 Rx Selenium Sulfide [Selsun] 1 applic TP 2XW PRN #1 bottle 01/04/17 01/27/17 Rx Simvastatin [Zocor TAB] 20 mg PO QHS #30 tablet 01/04/17 01/27/17 01/26/17 Rx Sulfamethoxazole/Trimethoprim 1 each PO DAILY #60 tablet 01/04/17 01/27/1701/26 Rx [Bactrim DS TAB] Exam - Constitutional Vitals: Temp Pulse Resp BP Pulse Ox 98.1 F 75 20 106/75 98 01/27/17 21:44 01/27/17 21:44 01/27/17 21:44 01/27/17 21:44 01/27/17 21:44 General appearance: Present: no acute distress, well-nourished - EENT Eyes: Present: PERRL ENT: hearing intact, clear oral mucosa - Neck Neck: Present: supple, normal ROM - Respiratory Respiratory effort: normal Respiratory: bilateral: CTA - Cardiovascular Heart rate: 80 Rhythm: regular Heart Sounds: Present: S1 & S2. Absent: rub, click - Extremities Extremities: pulses symmetrical, No edema Peripheral Pulses: within normal limits - Abdominal General gastrointestinal: Present: soft, non-tender, non-distended, normal bowel sounds Male genitourinary: Present: normal - Integumentary Integumentary: Present: clear, warm, dry - Musculoskeletal Musculoskeletal: gait normal, strength equal bilaterally - Psychiatric Psychiatric: appropriate mood/affect, intact judgment & insight - Neurologic Neurologic: CNII-XII intact, other (Rt side weakness-power 0/5 in RUE and RLE, Cannot walk) - Allied Health Allied health notes reviewed: nursing, case management Results - Labs CBC & Chem 7: 01/27/17 14:00 01/27/17 14:00 Labs: Laboratory Last Values WBC 5.3 K/mm3 (4.5-11.0) 01/27/17 14:00 RBC 4.52 M/mm3 (3.65-5.03) 01/27/17 14:00 Hgb 14.1 gm/dl (11.8-15.2) 01/27/17 14:00 Hct 41.8 % (35.5-45.6) 01/27/17 14:00 MCV 93 fl (84-94) 01/27/17 14:00 MCH 31 pg (28-32) 01/27/17 14:00 MCHC 34 % (32-34) 01/27/17 14:00 RDW 15.5 % (13.2-15.2) H 01/27/17 14:00 Plt Count 270 K/mm3 (140-440) 01/27/17 14:00 Lymph % (Auto) 17.0 % (13.4-35.0) 01/27/17 14:00 [place] % (Auto) 10.6 % (0.0-7.3) H 01/27/17 14:00 Eos % (Auto) 10.9 % (0.0-4.3) H 01/27/17 14:00 Baso % (Auto) 0.6 % (0.0-1.8) 01/27/17 14:00 Lymph # 0.9 K/mm3 (1.2-5.4) L 01/27/17 14:00 [place] # 0.6 K/mm3 (0.0-0.8) 01/27/17 14:00 Eos # 0.6 K/mm3 (0.0-0.4) H 01/27/17 14:00 Baso # 0.0 K/mm3 (0.0-0.1) 01/27/17 14:00 Seg Neutrophils % 60.9 % (40.0-70.0) 01/27/17 14:00 Seg Neutrophils # 3.2 K/mm3 (1.8-7.7) 01/27/17 14:00 PT 12.9 Sec. (12.2-14.9) 01/27/17 14:00 INR 0.93 (0.87-1.13) 01/27/17 14:00 APTT 28.6 Sec. (24.2-36.6) 01/27/17 14:00 Thrombin Time 15.5 Sec. (15.1-19.6) 01/27/17 14:00 Sodium 135 mmol/L (137-145) L 01/27/17 14:00 Potassium 4.3 mmol/L (3.6-5.0) 01/27/17 14:00 Chloride 100.4 mmol/L (98-107) 01/27/17 14:00 Carbon Dioxide 25 mmol/L (22-30) 01/27/17 14:00 Anion Gap 14 mmol/L 01/27/17 14:00 BUN 9 mg/dL (9-20) 01/27/17 14:00 Creatinine 0.6 mg/dL (0.8-1.5) L 01/27/17 14:00 Estimated GFR > 60 ml/min 01/27/17 14:00 BUN/Creatinine Ratio 15.00 % 01/27/17 14:00 Glucose 95 mg/dL (75-100) 01/27/17 14:00 POC Glucose 101 (70-105) 01/27/17 22:46 Calcium 8.0 mg/dL (8.4-10.2) L 01/27/17 14:00 Troponin T < 0.010 ng/mL (0.00-0.029) 01/27/17 14:00 Urine Color Yellow (Yellow) 01/27/17 15:02 Urine Turbidity Clear (Clear) 01/27/17 15:02 Urine pH 7.0 (5.0-7.0) 01/27/17 15:02 Ur Specific [place] 1.010 (1.003-1.030) 01/27/17 15:02 Urine Protein <15 mg/dl mg/dL (Negative) 01/27/17 15:02 Urine Glucose (UA) Neg mg/dL (Negative) 01/27/17 15:02 Urine Ketones Neg mg/dL (Negative) 01/27/17 15:02 Urine Blood Neg (Negative) 01/27/17 15:02 Urine Nitrite Neg (Negative) 01/27/17 15:02 Urine Bilirubin Neg (Negative) 01/27/17 15:02 Urine Urobilinogen < 2.0 mg/dL (<2.0) 01/27/17 15:02 Ur Leukocyte Esterase Neg (Negative) 01/27/17 15:02 Urine WBC (Auto) 1.0 /HPF (0.0-6.0) 01/27/17 15:02 Urine RBC (Auto) 3.0 /HPF (0.0-6.0) 01/27/17 15:02 U Epithel Cells (Auto) < 1.0 /HPF (0-13.0) 01/27/17 15:02 Amorphous Crystals Few 01/27/17 15:02 Urine Mucus Few /HPF 01/27/17 15:02 Urine Yeast (Budding) Not Reportable 01/27/17 15:02 Urine Opiates Screen Presumptive negative 01/27/17 15:02 Urine Methadone Screen Presumptive negative 01/27/17 15:02 Ur Barbiturates Screen Presumptive negative 01/27/17 15:02 Ur Phencyclidine Scrn Presumptive negative 01/27/17 15:02 Ur Amphetamines Screen Presumptive negative 01/27/17 15:02 U Benzodiazepines Scrn Presumptive negative 01/27/17 15:02 Urine Cocaine Screen Presumptive negative 01/27/17 15:02 U Marijuana (THC) Screen Presumptive negative 01/27/17 15:02 Drugs of Abuse Note Disclamer 01/27/17 15:02 Short CBC 01/27/17 Range/Units 14:00 WBC 5.3 (4.5-11.0) K/mm3 Hgb 14.1 (11.8-15.2) gm/dl Hct 41.8 (35.5-45.6) % Plt Count 270 (140-440) K/mm3 BMP 01/27/17 14:00 Sodium 135 L Potassium 4.3 Chloride 100.4 Carbon Dioxide 25 BUN 9 Creatinine 0.6 L Glucose 95 Calcium 8.0 L Cardiac Enzymes 01/27/17 Range/Units 14:00 Troponin T < 0.010 (0.00-0.029) ng/mL Urine 01/27/17 Range/Units 15:02 Urine Color Yellow (Yellow) Urine pH 7.0 (5.0-7.0) Ur Specific [place] 1.010 (1.003-1.030) Urine Protein <15 mg/dl (Negative) mg/dL Urine Glucose (UA) Neg (Negative) mg/dL - Imaging and Cardiology EKG: report reviewed CT Scan - head: report reviewed Assessment and Plan Advance Directives: Yes (Full code) VTE prophylaxis?: Chemical Plan of care discussed with patient/family: Yes - Patient Problems (1) CVA (cerebral vascular accident) Current Visit: No Status: Acute Qualifiers: CVA mechanism: thrombosis Precerebral and cerebral artery: P Laterality of affected vessel: L Qualified Code(s): I63.9 - Cerebral infarction, unspecified Plan to address problem: MRI/MRA/EcHO/CDS Neuro consult PT/OT (2) HIV (human immunodeficiency virus infection) Current Visit: No Status: Chronic Plan to address problem: CONNT HAART (3) Nicotine dependence Current Visit: No Status: Chronic Qualifiers: Nicotine product type: cigarettes Substance use status: S Plan to address problem: Counselled (4) DVT prophylaxis Current Visit: No Status: Acute
[2017-01-28] MEDS ORDERED: SODIUM CHLORIDE FLUSH SYRINGE 10 ML IV PRN (08:38)
[2017-01-28] MEDS ORDERED: COBICISTAT PO SCH (10:00)
[2017-01-28] MEDS ORDERED: DARUNAVIR PO SCH (10:00)
--- NOTE | 2017-01-28 12:41 | Consultation ---
History of Present Illness Consult date: 01/28/17 Requesting physician: MARIO CASEY Reason for Consult: stroke Chief complaint: L sided weakness and difficulty with vision History of present illness: 36 YO M Hx HIV for many years on HAART p/w 10 days of progressive L sided weakness and difficulty w/ L sided vision on 12/26. Clinical exam consistent with R hemispheric dense lesion. MRI Brain confirms extensive white matter disease of R temporparietaloccipital lobes, splenium of corpus callosum, and L occipital lobe w/o enhancement. Lp obtained has CSF JCV DNA [id number] while CMV/HSV/ VZV/Crypto/Cx all negative. He represents as his sx have continued to worsen w/ o improvement. There was no acute exacerbation. Sx are constant. There are no clear aggravating, relieving or temporal factors. Severity is such to limit ADLs. Past History Past Medical History: HIV/AIDS Medications and Allergies Allergies Allergy/AdvReac Type Severity Reaction Status Date / Time No Known Allergies Allergy Unverified 12/22/16 10:09 Home Medications Medication Instructions Recorded Confirmed Last Taken Type Aspirin EC [Aspirin Enteric Coated 81 mg PO QDAY #30 tablet. 01/04/1701/26/17 Rx TAB] Clopidogrel Bisulfate [Plavix] 75 mg PO DAILY #30 tablet 01/04/17 01/27/1701/26 Rx Darunavir/Cobicistat (Nf) 1 tab PO DAILY #30 tablet 01/04/17 01/27/17 01/26/17 Rx [Prezcobix 800 mg-150 mg (Nf)] Emtricitab/Rilpiviri/Tenof Ala 1 each PO DAILY #30 tablet 01/04/17 01/27/17 Rx [Odefsey Tablet] Ketoconazole 2% [Nizoral] 1 applic TP BID #1 tube 01/04/17 01/27/17 01/26/17 Rx Selenium Sulfide [Selsun] 1 applic TP 2XW PRN #1 bottle 01/04/17 01/27/17 Rx Simvastatin [Zocor TAB] 20 mg PO QHS #30 tablet 01/04/17 01/27/17 01/26/17 Rx Sulfamethoxazole/Trimethoprim 1 each PO DAILY #60 tablet 01/04/17 01/27/1701/26 /17 Rx [Bactrim DS TAB] Active Meds: Active Medications Aspirin (Halfprin Ec) 81 mg PO QDAY [facility] Clopidogrel Bisulfate (Plavix) 75 mg PO DAILY [facility] Ketoconazole (Nizoral) 1 applic TP BID [facility] Miscellaneous Medication (Darunavir/Cobicistat (Nf)) 1 tab PO DAILY [facility] Simvastatin (Zocor) 20 mg PO QHS [facility] Sodium Chloride (Sodium Chloride Flush Syringe 10 Ml) 10 ml IV PRN PRN PRN Reason: LINE FLUSH Stop: 02/07/17 08:37 Trimethoprim/Sulfamethoxazole (Bactrim Ds) 1 each PO DAILY [facility] Review of Systems All systems: negative Neurological: weakness (L side), numbness, confusion, gait dysfunction, motor disturbance, sensory deficit, loss of vision, no seizures, no syncope, no headaches Physical Examination - Vital Signs Vital Signs: Vital Signs Temp Pulse Resp BP Pulse Ox 98.1 F 82 16 102/72 99 01/27/17 14:22 01/27/17 14:22 01/27/17 14:22 01/27/17 14:22 01/27/17 14:22 - Constitutional General appearance: comfortable, acutely ill, chronically ill - EENT EENT: Present: ATNC, PERRL, mucous membranes moist, hearing intact - Respiratory Respiratory: Present: chest non-tender, normal breath sounds, no respiratory distress - Cardiovascular Cardiovascular: Present: regular rate Extremities: Present: no peripheral edema bilatateraly, no clubbing, cyanosis, no inflammation, no ischemia or petechiae - Gastrointestinal Gastrointestinal: Present: normoactive bowel sounds, soft, non-distended - Integumentary Integumentary: Present: normal - Neurologic Cranial nerve examination: PERRL, EOMI, V1/V2/V3 grossly intact, intact, intact shoulder shrug, Intact Vestibulo-ocular r, intact corneal reflex, facial droop ( on L mod), normal palatal elevation, other (absent visual field ) Speech examination: intact, other (aprosidic) Sensorimotor examination: pronator drift (on L), hemiparesis (on L), hemineglect (on L) Motor examination - right side: 4/5: biceps, triceps, wrist flexion, wrist extension, police communications dispatcher, hip flexors, knee extensors, dorsiflexion, toe extension (EHL) , plantarflexion Motor examination - left side: 1/5: biceps, triceps, wrist flexion, wrist extension, police communications dispatcher, 2/5: hip flexors, knee extensors, dorsiflexion, toe extension ( EHL), plantarflexion Detailed sensory examination: temperature (diminished on L) Reflex and gait examination: Babinski's sign (on L) Reflexes: 3+: ankle (on L), bicep, knee, tricep - Musculoskeletal Musculoskeletal: Present: no fluid collection, no pain, normal range of motion - Psychiatric Psychiatric: Present: mood/affect appropriate, cooperative Results - Laboratory Findings CBC and BMP: 01/27/17 14:00 01/27/17 14:00 Assessment and Plan 36 YO M Hx HIV for many years on HAART presented initially 12/26 for 10 days of progressive L sided weakness and difficulty w/ L sided vision. Clinical exam consistent with R hemispheric dense lesion. MRI Brain confirmed extensive nonenhancing white matter disease of R temporparietaloccipital lobes, splenium of corpus callosum, and L occipital lobe, classic for PML. CD4 count was 50 consistent with AIDS. LP obtained has CSF JCV DNA [id number] while routines/CMV/HSV/ VZV/Crypto/Cx all negative. I AM UNCLEAR WHY HIS DISCHARGE DIAGNOSIS ON LAST ADMISSION IS LISTED STROKE CONSIDERING THIS IS CLEARLY NOT ON MY CONSULT NOTE AND MRIs ARE NEGATIVE FOR INFARCT. FOR SOME REASON HE WAS PLACED ON ASA/ PLAVIX/STATIN. 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 HE IS FOLLOWED OUTPT BY ID FOR AIDS. Repeat MRI Brain obtained 01/28 reveals worsened T2 hyperintensity no acute findings but official report pending. Recs: 1. There is no role for additional clinical neuro intervention 2. His case should be discussed with ID as necessary 3. If patient cannot receive reasonable standard of care at this center, he should be transferred to a more suitable place of care
--- NOTE | 2017-01-28 13:09 | Magnetic Resonance Report ---
MRI BRAIN WITHOUT CONTRAST: 01/28/17 CLINICAL: Stroke. COMPARISON: 12/24/16 TECHNIQUE: Axial diffusion, T1, T2, FLAIR, gradient echo T2*, and sagittal T1 sequences on a 1.5 Marcia magnet. FINDINGS: The ventricles and sulci are large for age. Previously described T1 hypointense and T2 hyperintense signal abnormalities primarily involving the white matter of the right parietal lobe and right occipital lobe have progressed with increased volume of involvement brain and greater mass effect. There is also involvement of the splenium of the corpus callosum and increased abnormal signal in the left occipital white matter. Increased signal and a malleus of the right insular cortex and subcortical white matter. No restricted diffusion. Although there is increased mass effect with some gyral swelling, no midline shift. No evidence of hemorrhage. No extra-axial collection. Normal pituitary and optic chiasm. Increased T2 hyperintense signal in the periphery of the right midbrain and right thalamus. The cerebellum is normal. Intact vascular flow voids. Normal sinuses. The orbits, and soft tissues are normal. Normal calvarium and skull base. IMPRESSION: Progressive disease predominantly involving white matter of the right parietal lobe, bilateral occipital lobes and the splenium of the corpus callosum. New abnormal signal involving the right midbrain and right thalamus. Increased mass effect in the involved areas of the brain but no significant midline shift. 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 No evidence of acute or subacute infarct.
--- NOTE | 2017-01-28 13:11 | Magnetic Resonance Report ---
MRA HEAD WITHOUT CONTRAST: 01/28/17 CLINICAL: Stroke. TECHNIQUE: Axial 3-D [id number] MR angiography of the [place] with review of axial source images. FINDINGS: Intact [place] with no aneurysm, stenosis or occlusion. Symmetric blood flow in the anterior, middle and posterior cerebral arteries. Normal basilar and vertebral arteries. IMPRESSION: Normal study.
--- NOTE | 2017-01-28 16:41 | Progress Note ---
Assessment and Plan 36 YO M Hx HIV for many years on HAART p/w 10 days of progressive L sided weakness and difficulty w/ L sided vision on 12/26. Clinical exam consistent with R hemispheric dense lesion. MRI Brain confirms extensive white matter disease of R temporparietaloccipital lobes, splenium of corpus callosum, and L occipital lobe w/o enhancement. Lp obtained has CSF JCV DNA [id number] while CMV/HSV/ VZV/Crypto/Cx all negative. He represents as his sx have continued to worsen w/ o improvement. MRI obtained today reveals worsened T2 hyperintensity no acute findings. WHITE MATTER ABNORMALITY ON BRAIN MRI CONCERNING FOR PML NICOTINE DEPENDENCE AIDS LEFT SIDED HEMIPLEGIA -cont supportive care, PT eval - Consult ID, resume home meds - DVt PX Subjective Date of service: 01/28/17 Interval history: pt seen and examined c/o left sided weakness Objective - Constitutional Vitals: Vital Signs - 12hr 01/28/17 01/28/17 01/28/17 06:07 08:00 12:00 Temperature 98.6 F 98.6 F 98.7 F Pulse Rate [ 82 Apical] Pulse Rate [ 82 Left Dorsalis Pedis] Pulse Rate [ 82 Left Radial] Pulse Rate [ 82 Right Dorsalis Pedis] Pulse Rate [ 77 81 82 Right Radial] Respiratory 18 20 20 Rate Blood Pressure 101/62 91/58 98/61 [Right Radial Artery] O2 Sat by Pulse 98 94 94 Oximetry 01/28/17 12:59 Temperature Pulse Rate [ Apical] Pulse Rate [ Left Dorsalis Pedis] Pulse Rate [ Left Radial] Pulse Rate [ Right Dorsalis Pedis] Pulse Rate [ Right Radial] Respiratory Rate Blood Pressure [Right Radial Artery] O2 Sat by Pulse 96 Oximetry - Labs CBC & Chem 7: 01/27/17 14:00 01/27/17 14:00
[2017-01-28] MEDS ORDERED: NON-FORMULARY (Emtricitab/Rilpiviri/Tenof Ala [Odefsey Tablet] 1 EACH) PO SCH (16:45)
[2017-01-28] MEDS: PLAVIX PO SCH (17:22)
[2017-01-28] MEDS: BACTRIM DS PO SCH (17:22)
[2017-01-28] MEDS: HALFPRIN EC PO SCH (17:22)
[2017-01-28] MEDS ORDERED: ZOCOR PO SCH (22:00)
[2017-01-28] MEDS: ZOCOR PO SCH (22:01)
[2017-01-28] MEDS: NIZORAL TP SCH (22:01)
[2017-01-29] MEDS ORDERED: TYLENOL PO PRN (05:51)
[2017-01-29] MEDS ORDERED: XYLOCAINE 1% 20 mL ONE (07:14)
[2017-01-29] MEDS ORDERED: MARCAINE-EPI/PF 0.5%-1:200,000 INFILTRATI ONE (07:14)
--- NOTE | 2017-01-29 11:11 | Consultation ---
History of Present Illness - Reason for Consult Consult date: 01/29/17 AIDS; PML Requesting physician: PAGE KANG - History of Present Illness Mr. Conrad is a 36-year-old man with AIDS (CD4=50) on HAART, known from a recent hospitalization for unilateral left-sided weakness thought due to PML. He had an LP with negative VDRL, fungal/viral studies and culture. However, a CSF LORENZO virus study was requested and the viral load in the CSF was >23K. MRI brain was consistent, also, with PML. The patient was already on HAART and was continued on therapy with PCP prophylaxis added prior to discharge. He returns now with a sudden onset of blindness and worsened left-sided weakness, now paralysis. His ARVs have been adjusted to include Odefsy and boosted Prezista, with which he has been compliant. ID consultation is requested for further recommendations. Past History Past Medical History: HIV/AIDS, other (PML) Social history: no significant social history Medications and Allergies Allergies Allergy/AdvReac Type Severity Reaction Status Date / Time No Known Allergies Allergy Unverified 12/22/16 10:09 Home Medications Medication Instructions Recorded Confirmed Last Taken Type Aspirin EC [Aspirin Enteric Coated 81 mg PO QDAY #30 tablet. 01/04/1701/26/17 Rx TAB] Clopidogrel Bisulfate [Plavix] 75 mg PO DAILY #30 tablet 01/04/17 01/27/1701/26 Rx Darunavir/Cobicistat (Nf) 1 tab PO DAILY #30 tablet 01/04/17 01/27/17 01/26/17 Rx [Prezcobix 800 mg-150 mg (Nf)] Emtricitab/Rilpiviri/Tenof Ala 1 each PO DAILY #30 tablet 01/04/17 01/27/17 Rx [Odefsey Tablet] Ketoconazole 2% [Nizoral] 1 applic TP BID #1 tube 01/04/17 01/27/17 01/26/17 Rx Selenium Sulfide [Selsun] 1 applic TP 2XW PRN #1 bottle 01/04/17 01/27/17 Rx Simvastatin [Zocor TAB] 20 mg PO QHS #30 tablet 01/04/17 01/27/17 01/26/17 Rx Sulfamethoxazole/Trimethoprim 1 each PO DAILY #60 tablet 01/04/17 01/27/1701/26 Rx [Bactrim DS TAB] Active Meds: Active Medications Acetaminophen (Tylenol) 650 mg PO Q4H PRN PRN Reason: Pain, Mild (1-3) Last Admin: 01/29/17 06:03 Dose: 650 mg Aspirin (Halfprin Ec) 81 mg PO QDAY [facility] Last Admin: 01/28/17 17:22 Dose: 81 mg Clopidogrel Bisulfate (Plavix) 75 mg PO DAILY [facility] Last Admin: 01/28/17 17:22 Dose: 75 mg Ketoconazole (Nizoral) 1 applic TP BID [facility] Last Admin: 01/28/17 22:01 Dose: Not Given Miscellaneous Medication (Darunavir/Cobicistat (Nf)) 1 tab PO DAILY [facility] Miscellaneous Medication (Emtricitab/Rilpiviri/Tenof Ala [Odefsey Tablet]) 1 each PO DAILY [facility] Simvastatin (Zocor) 20 mg PO QHS [facility] Last Admin: 01/28/17 22:01 Dose: 20 mg Sodium Chloride (Sodium Chloride Flush Syringe 10 Ml) 10 ml IV PRN PRN PRN Reason: LINE FLUSH Stop: 02/07/17 08:37 Trimethoprim/Sulfamethoxazole (Bactrim Ds) 1 each PO DAILY [facility] Last Admin: 01/28/17 17:22 Dose: 1 each Review of Systems All systems: negative Constitutional: no fever, no chills, no fatigue Cardiovascular: no chest pain, no palpitations Respiratory: no cough, no shortness of breath Gastrointestinal: no abdominal pain, no nausea, no vomiting, no diarrhea Integumentary: no rash, no pruritis Neurological: loss of vision, paralysis Physical Examination - Constitutional Vitals: Vital Signs Temp Pulse Resp BP Pulse Ox 98.8 F 95 H 20 96/58 97 01/29/17 05:18 01/29/17 05:18 01/29/17 05:18 01/29/17 05:18 01/29/17 10:00 Temperature -Last 24 Hours Temperature 98.8 F Temperature 98.5 F Temperature 99.3 F Temperature 97.8 F Temperature 98.7 F General appearance: Present: no acute distress - EENT Eyes: Absent: scleral icterus, conjunctival injection - Neck Neck: Present: supple - Respiratory Respiratory effort: normal Respiratory: bilateral: CTA, negative: rales, rhonchi - Cardiovascular Rhythm: regular Heart Sounds: Present: S1 & S2 - Abdominal General gastrointestinal: Present: soft, non-distended - Integumentary Integumentary: Absent: rash (resolved furuncles at left neck) - Neurologic Neurologic: focal deficits, no moves all extremities, no gait normal, other ( absent motor strength of left arm/ leg) Results - Labs CBC & Chem 7: 01/27/17 14:00 01/27/17 14:00 Labs: Abnormal lab results 01/28/17 01/29/17 Range/Units 21:52 07:25 POC Glucose 126 H (70-105) HDL Cholesterol 28 L (40-59) mg/dL - Imaging and Cardiology MRI - head: report reviewed (progressive white matter changes with mass effect consistent with PML) Assessment and Plan - Patient Problems (1) Progressive multifocal leukoencephalopathy Current Visit: Yes Status: Acute Plan to address problem: 1. There is no additional treatment that can be offered to Mr. Conrad other than HAART which was prescribed even during his last admission. 2. His acute issues may have acutely worsened secondary to IRIS, nonetheless , there are no new recommendations. 3. Acute rehab per neurology and PT/ OT recommendations and continued HAART. (2) AIDS Current Visit: No Status: Acute Plan to address problem: Continue HAART regimen prescribed outside, also PjP prophylaxis.
[2017-01-29] MEDS: NIZORAL TP SCH ×3 (11:37→22:07)
[2017-01-29] MEDS: PLAVIX PO SCH (11:41)
[2017-01-29] MEDS: HALFPRIN EC PO SCH (11:41)
[2017-01-29] MEDS: BACTRIM DS PO SCH (11:41)
--- NOTE | 2017-01-29 15:28 | Progress Note ---
Assessment and Plan 36 YO M Hx HIV for many years on HAART p/w 10 days of progressive L sided weakness and difficulty w/ L sided vision on 12/26. Clinical exam consistent with R hemispheric dense lesion. MRI Brain confirms extensive white matter disease of R temporparietaloccipital lobes, splenium of corpus callosum, and L occipital lobe w/o enhancement. Lp obtained has CSF JCV DNA [id number] while CMV/HSV/ VZV/Crypto/Cx all negative. He represents as his sx have continued to worsen w/ o improvement. MRI obtained today reveals worsened T2 hyperintensity no acute findings. WHITE MATTER ABNORMALITY ON BRAIN MRI CONCERNING FOR PML NICOTINE DEPENDENCE AIDS, follows at [place] LEFT SIDED HEMIPLEGIA - Cont supportive care, PT eval - Consulted ID, resumed home meds - DVt PX Subjective Date of service: 01/29/17 Interval history: pt seen and examined states he cannot walk and became wheelchair bound Objective - Exam Narrative Exam: General appearance: Present: no acute distress, well-nourished - EENT Eyes: Present: PERRL ENT: hearing intact, clear oral mucosa - Neck Neck: Present: supple, normal ROM - Respiratory Respiratory effort: normal Respiratory: bilateral: CTA - Cardiovascular Heart rate: 80 Rhythm: regular Heart Sounds: Present: S1 & S2. Absent: rub, click - Extremities Extremities: pulses symmetrical, No edema Peripheral Pulses: within normal limits - Abdominal General gastrointestinal: Present: soft, non-tender, non-distended, normal bowel sounds Male genitourinary: Present: normal - Integumentary Integumentary: Present: clear, warm, dry - Musculoskeletal Musculoskeletal: gait normal, strength equal bilaterally - Psychiatric Psychiatric: appropriate mood/affect, intact judgment & insight - Neurologic Neurologic: CNII-XII intact, other (Rt side weakness-power 0/5 in RUE and RLE, Cannot walk) - Constitutional Vitals: Vital Signs - 12hr 01/29/17 01/29/17 05:18 10:00 Temperature 98.8 F Pulse Rate [ 95 H Apical] Pulse Rate [ 95 H Left Dorsalis Pedis] Pulse Rate [ 95 H Left Radial] Pulse Rate [ 95 H Right Dorsalis Pedis] Pulse Rate [ 95 H Right Radial] Respiratory 20 Rate Blood Pressure 96/58 [Right Radial Artery] O2 Sat by Pulse 98 97 Oximetry - Labs CBC & Chem 7: 01/27/17 14:00 01/27/17 14:00 Labs: Abnormal lab results 01/28/17 01/29/17 Range/Units 21:52 07:25 POC Glucose 126 H (70-105) HDL Cholesterol 28 L (40-59) mg/dL
[2017-01-29] MEDS: ZOCOR PO SCH (22:04)
[2017-01-30] MEDS: BACTRIM DS PO SCH (10:05)
[2017-01-30] MEDS: HALFPRIN EC PO SCH (10:05)
[2017-01-30] MEDS: PLAVIX PO SCH (10:05)
[2017-01-30] MEDS: NIZORAL TP SCH ×2 (10:06→22:56)
--- NOTE | 2017-01-30 15:43 | Progress Note ---
Subjective Date of service: 01/30/17 Interval history: 6 YO M Hx HIV for many years on HAART p/w 10 days of progressive L sided weakness and difficulty w/ L sided vision on 12/26. Clinical exam consistent with R hemiparesis MRI Brain confirms extensive white matter disease of R temporparietaloccipital lobes, splenium of corpus callosum, and L occipital lobe w/o enhancement. Lp obtained has CSF JCV DNA [id number] while CMV/HSV/VZV/Crypto /Cx all negative. He represents as his sx have continued to worsen w/o improvement. WHITE MATTER ABNORMALITY ON BRAIN MRI CONCERNING FOR PML NICOTINE DEPENDENCE AIDS, follows at [place] LEFT SIDED HEMIPLEGIA - Cont supportive care, PT eval - Consulted ID, resumed home meds - DVt PX Patient is a total care Needs assistance for eating Subjective: pt seen and examined Offers no specific complaints He is a total care Objective - Exam General appearance: no acute distress - EENT Eyes: Present: PERRL ENT: hearing intact, clear oral mucosa - Neck Neck: Present: supple, normal ROM - Respiratory Respiratory effort: normal Respiratory: bilateral: CTA - Cardiovascular Heart Sounds: Present: S1 & S2. Absent: rub, click - Extremities Extremities: pulses symmetrical, No edema Peripheral Pulses: within normal limits - Abdominal General gastrointestinal: Present: soft, non-tender, non-distended, normal bowel sounds - Integumentary Integumentary: Present: clear, warm, dry - Psychiatric Psychiatric: appropriate mood/affect, intact judgment & insight - Neurologic Neurologic: Rt side weakness-power 0/5 in RUE and RLE Objective - Constitutional Vitals: Vital Signs - 12hr 01/30/17 01/30/17 01/30/17 06:01 08:00 08:10 Temperature 98.2 F 98.1 F Pulse Rate 100 H Pulse Rate [ 76 82 Right Radial] Respiratory 20 16 Rate Blood Pressure 95/68 91/60 [Right Radial Artery] O2 Sat by Pulse 100 100 Oximetry 01/30/17 13:00 Temperature 98.2 F Pulse Rate Pulse Rate [ 62 Right Radial] Respiratory 16 Rate Blood Pressure 92/63 [Right Radial Artery] O2 Sat by Pulse 99 Oximetry - Labs CBC & Chem 7: 01/27/17 14:00 01/27/17 14:00
[2017-01-30] MEDS: ZOCOR PO SCH (22:56)
[2017-01-31] MEDS: NIZORAL TP SCH ×2 (10:45→21:39)
[2017-01-31] MEDS: HALFPRIN EC PO SCH (10:45)
[2017-01-31] MEDS: PLAVIX PO SCH (10:45)
[2017-01-31] MEDS: BACTRIM DS PO SCH (10:45)
--- NOTE | 2017-01-31 16:09 | Progress Note ---
Assessment and Plan 36 YO M Hx HIV for many years on HAART p/w 10 days of progressive L sided weakness and difficulty w/ L sided vision on 12/26. Clinical exam consistent with R hemiparesis MRI Brain confirms extensive white matter disease of R temporparietaloccipital lobes, splenium of corpus callosum, and L occipital lobe w/o enhancement. Lp obtained has CSF JCV DNA [id number] while CMV/HSV/VZV/Crypto /Cx all negative. He represents as his sx have continued to worsen w/o improvement. WHITE MATTER ABNORMALITY ON BRAIN MRI CONCERNING FOR PML NICOTINE DEPENDENCE AIDS, follows at [place] LEFT SIDED HEMIPLEGIA - Cont supportive care, PT eval - Consulted ID, resumed home meds - DVt PX Patient requires total care Needs assistance for eating PT recommended 23/02 assistance at home or SNF placement family unable to provide support, pt is uninsured, CM notified Subjective: pt seen and examined Offers no specific complaints Subjective Date of service: 01/31/17 Objective - Exam Narrative Exam: General appearance: Present: no acute distress, well-nourished - EENT Eyes: Present: PERRL ENT: hearing intact, clear oral mucosa - Neck Neck: Present: supple, normal ROM - Respiratory Respiratory effort: normal Respiratory: bilateral: CTA - Cardiovascular Heart rate: 80 Rhythm: regular Heart Sounds: Present: S1 & S2. Absent: rub, click - Extremities Extremities: pulses symmetrical, No edema Peripheral Pulses: within normal limits - Abdominal General gastrointestinal: Present: soft, non-tender, non-distended, normal bowel sounds Male genitourinary: Present: normal - Integumentary Integumentary: Present: clear, warm, dry - Musculoskeletal Musculoskeletal: gait normal, strength equal bilaterally - Psychiatric Psychiatric: appropriate mood/affect, intact judgment & insight - Neurologic Neurologic: CNII-XII intact, other (Rt side weakness-power 0/5 in RUE and RLE, Cannot walk) - Constitutional Vitals: Vital Signs - 12hr 01/31/17 01/31/17 01/31/17 08:00 10:00 12:00 Temperature 97.4 F L 97.6 F Pulse Rate 96 H Pulse Rate [ 96 H 96 H 94 H Right Radial] Respiratory 20 20 18 Rate Respiratory 20 Rate [Bilateral Leg] Blood Pressure 100/59 102/62 [Right Radial Artery] O2 Sat by Pulse 98 98 96 Oximetry 01/31/17 15:03 Temperature Pulse Rate 98 H Pulse Rate [ Right Radial] Respiratory Rate Respiratory Rate [Bilateral Leg] Blood Pressure [Right Radial Artery] O2 Sat by Pulse Oximetry - Labs CBC & Chem 7: 01/27/17 14:00 01/27/17 14:00
[2017-01-31] MEDS: ZOCOR PO SCH (21:38)
[2017-02-01] MEDS: BACTRIM DS PO SCH (11:14)
[2017-02-01] MEDS: HALFPRIN EC PO SCH (11:15)
[2017-02-01] MEDS: NIZORAL TP SCH ×2 (11:15→23:03)
[2017-02-01] MEDS: PLAVIX PO SCH (11:16)
--- NOTE | 2017-02-01 15:54 | Progress Note ---
Assessment and Plan 36 YO M Hx HIV for many years on HAART p/w 10 days of progressive L sided weakness and difficulty w/ L sided vision on 12/26. Clinical exam consistent with R hemiparesis MRI Brain confirms extensive white matter disease of R temporparietaloccipital lobes, splenium of corpus callosum, and L occipital lobe w/o enhancement. Lp obtained has CSF JCV DNA [id number] while CMV/HSV/VZV/Crypto /Cx all negative. He represents as his sx have continued to worsen w/o improvement. WHITE MATTER ABNORMALITY ON BRAIN MRI CONCERNING FOR PML NICOTINE DEPENDENCE AIDS, follows at [place] LEFT SIDED HEMIPLEGIA - Cont supportive care, PT eval - Consulted ID, resumed home meds - DVt PX Patient requires total care Needs assistance for eating PT recommended 23/02 assistance at home or SNF placement family unable to provide support, pt is uninsured, CM notified Subjective: pt seen and examined Offers no specific complaints Subjective Date of service: 02/01/17 Interval history: pt seen and examined states he cannot walk and became wheelchair bound Objective - Exam Narrative Exam: General appearance: Present: no acute distress, well-nourished - EENT Eyes: Present: PERRL ENT: hearing intact, clear oral mucosa - Neck Neck: Present: supple, normal ROM - Respiratory Respiratory effort: normal Respiratory: bilateral: CTA - Cardiovascular Heart rate: 80 Rhythm: regular Heart Sounds: Present: S1 & S2. Absent: rub, click - Extremities Extremities: pulses symmetrical, No edema Peripheral Pulses: within normal limits - Abdominal General gastrointestinal: Present: soft, non-tender, non-distended, normal bowel sounds Male genitourinary: Present: normal - Integumentary Integumentary: Present: clear, warm, dry - Musculoskeletal Musculoskeletal: gait normal, strength equal bilaterally - Psychiatric Psychiatric: appropriate mood/affect, intact judgment & insight - Neurologic Neurologic: CNII-XII intact, other (Rt side weakness-power 0/5 in RUE and RLE, Cannot walk) - Constitutional Vitals: Vital Signs - 12hr 02/01/17 02/01/17 02/01/17 04:10 08:00 12:00 Temperature 98.1 F 98.9 F 98.7 F Pulse Rate [ 81 82 89 Right Radial] Respiratory 18 18 18 Rate Blood Pressure 98/66 134/58 98/66 [Right Radial Artery] O2 Sat by Pulse 98 98 98 Oximetry - Labs CBC & Chem 7: 01/27/17 14:00 01/27/17 14:00
[2017-02-01] MEDS: ZOCOR PO SCH (23:03)
[2017-02-02] MEDS: PLAVIX PO SCH (09:24)
[2017-02-02] MEDS: HALFPRIN EC PO SCH (09:24)
[2017-02-02] MEDS: BACTRIM DS PO SCH (09:24)
[2017-02-02] MEDS: NIZORAL TP SCH (09:25)
[2017-02-02 13:21] VITALS: BP 109/88
--- NOTE | 2017-02-02 14:50 | Discharge Summary ---
Providers - Providers Date of Admission: 01/27/17 15:46 Date of discharge: 02/02/17 Attending physician: PAGE KANG 01/28/17 08:39 Occupational Therapy Evaluate and Treat [CONS] Routine Comment: Reason For Exam: Neuro deficits Physical Therapy Evaluation and Treat [CONS] Routine Comment: Reason For Exam: Neuro deficits 01/28/17 09:06 Consult to Physician [CONS] Routine Consulting Provider: BRAN AMARAL Reason For Exam: CVA Place consult to:: Dr. Amaral Notified:: Essie JANG Phone number called:: Ext. [phone] Was contact made?: Yes If yes, spoke with:: Voicemail with consult info left 01/28/17 12:54 Speech Therapy Evaluation and Treat [CONS] Urgent Reason For Exam: difficulty swallowing. 01/28/17 16:38 Consult to Physician [CONS] Routine Consulting Provider: VANDANA LACEY Reason For Exam: HIV with neurological deficit Place consult to:: Dr. Lacey Notified:: Essie JANG 01/29/17 09:41 Consult to Dietitian/Nutrition [CONS] Routine Physician Instructions: Reason For Exam: Reason for Consult: braen score 15 Primary care physician: SHEEP RANCHER Hospitalization Condition: Stable Hospital course: 36 YO M Hx HIV for many years on HAART p/w 10 days of progressive L sided weakness and difficulty w/ L sided vision on 12/26. Clinical exam consistent with R hemiparesis MRI Brain confirms extensive white matter disease of R temporparietaloccipital lobes, splenium of corpus callosum, and L occipital lobe w/o enhancement. Lp obtained has CSF JCV DNA [id number] while CMV/HSV/VZV/Crypto /Cx all negative. He represents as his sx have continued to worsen w/o improvement. Discharge diagnosis and management: WHITE MATTER ABNORMALITY ON BRAIN MRI CONCERNING FOR PML NICOTINE DEPENDENCE AIDS, follows at [place] LEFT SIDED HEMIPLEGIA - Cont supportive care, PT eval - Consulted ID, resumed home meds - DVt PX Patient requires total care Needs assistance for eating PT recommended 24/7 assistance at home or SNF placement Disposition: [id number] HOME UNDER HOME HLTH Time spent for discharge: 32 minutes Core Measure Documentation - Palliative Care Palliative Care/ Comfort Measures: Not Applicable - Core Measures Any of the following diagnoses?: none Exam - Physical Exam Narrative exam: General appearance: Present: no acute distress, well-nourished - EENT Eyes: Present: PERRL ENT: hearing intact, clear oral mucosa - Neck Neck: Present: supple, normal ROM - Respiratory Respiratory effort: normal Respiratory: bilateral: CTA - Cardiovascular Heart rate: 80 Rhythm: regular Heart Sounds: Present: S1 & S2. Absent: rub, click - Extremities Extremities: pulses symmetrical, No edema Peripheral Pulses: within normal limits - Abdominal General gastrointestinal: Present: soft, non-tender, non-distended, normal bowel sounds Male genitourinary: Present: normal - Integumentary Integumentary: Present: clear, warm, dry - Musculoskeletal Musculoskeletal: gait normal, strength equal bilaterally - Psychiatric Psychiatric: appropriate mood/affect, intact judgment & insight - Neurologic Neurologic: CNII-XII intact, other (Rt side weakness-power 0/5 in RUE and RLE, Cannot walk) - Constitutional Vitals: Temp Pulse Resp BP Pulse Ox 99.2 F 85 16 109/88 97 02/02/17 13:17 02/02/17 13:17 02/02/17 13:17 02/02/17 13:17 02/02/17 13:17 Plan Activity: up only with assistance Weight Bearing Status: Non-Weight Bearing Diet: regular Follow up with: PRIMARY CARE, [Primary Care Provider] - 7 Days
== END 2017-02-02 20:30 | disposition home health service (06) | DRG 974 ==
LOC: ED 14:02 → 4A 15:46
PROVIDERS: ADMIT Internal Medicine; ATTEND Internal Medicine
DX: A81.2 Progressive multifocal leukoencephalopathy (principal); B20 Human immunodeficiency virus [HIV] disease; I63.9 Cerebral infarction, unspecified; G81.94 Hemiplegia, unspecified affecting left nondominant side; F17.210 Nicotine dependence, cigarettes, uncomplicated; R90.82 White matter disease, unspecified
CPT/HCPCS: 36415; 70450; 70544; 70551; 80048; 80061; 80307; 81001; 82962; 84484; 85025; 85610; 85670; 85730; 93005; 93010; 99285